=== PATIENT | female | born 1935 | race Caucasian/White ===

== ENCOUNTER → 2016-11-03 | Outpatient (REF) | payer MEDICARE ==
[~2016-11-03] MED LIST: ATEN25TA PO; CITA40TA4 PO; HALO05TA PO; LOSA100T36 PO; POTA10CA PO; PRAV40TA2 PO; PRESCAP PO; VITA50003 PO
[2016-11-03 17:19] LABS: ALBUMIN 3.6 GM/DL (3.2-5.2); ALKALINE PHOSPHATASE 59 U/L (45-117); ALT/SGPT 24 U/L (12-78); ANION GAP 7 MEQ/L (8-16); AST/SGOT 22 U/L (15-37); BILIRUBIN,TOTAL 0.4 MG/DL (0.2-1.0); BLOOD UREA NITROGEN 10 MG/DL (7-18); CALCIUM LEVEL 8.2 MG/DL (8.8-10.2); CARBON DIOXIDE LEVEL 28 MEQ/L (21-32); CHLORIDE LEVEL 105 MEQ/L (98-107); CHOLESTEROL LEVEL 187 MG/DL (<200); CREATININE FOR GFR 0.74 MG/DL (0.55-1.02); GLOMERULAR FILTRATION RATE > 60.0 (>32); GLUCOSE, FASTING 92 MG/DL (83-110); POTASSIUM SERUM 3.9 MEQ/L (3.5-5.1); SODIUM LEVEL 140 MEQ/L (136-145); TOTAL PROTEIN 6.6 GM/DL (6.4-8.2); TRIGLYCERIDES LEVEL 97 MG/DL (<150)
== END ==
LOC: M SFHCPLAZ 13:59
PROVIDERS: ATTEND Nurse Practitioner Adult Health
DX: E78.00 Pure hypercholesterolemia, unspecified (principal); E03.9 Hypothyroidism, unspecified; E55.9 Vitamin D deficiency, unspecified
CPT/HCPCS: 36415; 80053; 80061; 82306; 84443; G0463

== ENCOUNTER 2016-11-23 18:19 | Inpatient (IN) | payer MEDICARE ==
[~2016-11-23] VITALS: Ht 162.6 cm; Wt 69.5 kg
--- NOTE | 2016-11-23 20:40 | REPUSA ---
HISTORY: CVA greater than 4.5 hours TECHNIQUE: Axial CT was performed of the head without intravenous contrast by obtaining contiguous ax ial slices from the skull vertex to skull base at level of occipital condyles. COMPARISON: None FINDINGS: No acute intracranial hemorrhage or evidence of acute transcortical ischemia. No suspicious intra-axi al or extra-axial fluid collection, midline shift, subfalcine herniation, or hydrocephalus. There is prominence of the cortical sulci and ventricular system and perinephric white matter lucenci es, more commonly due to age-appropriate atrophy and chronic small vessel ischemic changes respective ly Posterior Fossa: Unremarkable Paranasal sinuses, mastoid air cells are well pneumatized. Optic globes, orbital compartments, osseou s structures, and extra cranial soft tissues unremarkable. IMPRESSION: No acute intracranial abnormality identified.
[2016-11-23 20:43] LABS: BASO % 0.1 % (0.0-1.0); EOS % 0.3 % (0.0-3.0); LARGE UNSTAINED CELL # 0.1 K/mm3 (0.0-0.4); LARGE UNSTAINED CELL % 0.7 % (0.0-4.0); LYMPH # 0.5 K/mm3 (1.5-4.5); MEAN CORPUSCULAR HGB CONC 32.9 g/dl (32.0-36.5); MEAN CORPUSCULAR VOLUME 88.2 fl (80.0-96.0); MONO # 0.3 K/mm3 (0.0-0.8); MONO % 3.1 % (0.0-5.0); NEUTROPHILS # 8.2 K/mm3 (1.8-7.7); NEUTROPHILS % 90.9 % (36.0-66.0); PLATELET COUNT, AUTOMATED 228 k/mm3 (150-450); RED CELL DISTRIBUTION WIDTH 12.8 % (11.5-14.5); WHITE BLOOD COUNT 9.1 K/mm3 (4.0-10.0)
[2016-11-23] MEDS ORDERED: ACETAMINOPHEN 325 MG TAB As Ordered ONE (20:52)
[2016-11-23 20:54] LABS: AMPHETAMINES LEVEL URINE NEGATIVE (NEGATIVE); BENZODIAZEPINES URINE NEGATIVE (NEGATIVE); COCAINE METABOLITE URINE NEGATIVE (NEGATIVE); CONTROL LINE INT CTR LINE PRESENT; METHADONE URINE NEGATIVE (NEGATIVE); OPIATES URINE NEGATIVE (NEGATIVE); TRICYCLIC ANTIDEPRESS URINE NEGATIVE (NEGATIVE)
[2016-11-23 22:30] LABS: ALBUMIN 3.6 GM/DL (3.2-5.2); ALBUMIN/GLOBULIN RATIO 0.97 (1.00-1.93); ALKALINE PHOSPHATASE 71 U/L (45-117); ALT/SGPT 34 U/L (12-78); ANION GAP 11 MEQ/L (8-16); AST/SGOT 26 U/L (15-37); BILIRUBIN,DIRECT 0.2 MG/DL (0.0-0.2); BILIRUBIN,TOTAL 0.6 MG/DL (0.2-1.0); BLOOD UREA NITROGEN 11 MG/DL (7-18); CALCIUM LEVEL 8.7 MG/DL (8.8-10.2); CARBON DIOXIDE LEVEL 24 MEQ/L (21-32); CHLORIDE LEVEL 102 MEQ/L (98-107); CREATININE FOR GFR 0.71 MG/DL (0.55-1.02); GLOMERULAR FILTRATION RATE > 60.0 (>32); GLUCOSE, FASTING 129 MG/DL (83-110); POTASSIUM SERUM 3.8 MEQ/L (3.5-5.1); SODIUM LEVEL 137 MEQ/L (136-145); TOTAL PROTEIN 7.3 GM/DL (6.4-8.2)
[2016-11-23] MEDS ORDERED: ONDANSETRON 4MG/2ML VIAL (J2405) IV PRN (22:45)
[2016-11-23] MEDS ORDERED: VITA50003 PO (22:56)
[2016-11-23] MEDS ORDERED: ATEN25TA PO (22:56)
[2016-11-23] MEDS ORDERED: PRAV40TA2 PO (22:56)
[2016-11-23] MEDS ORDERED: POTA10CA PO (22:56)
[2016-11-23] MEDS ORDERED: CITA40TA4 PO (22:56)
[2016-11-23] MEDS ORDERED: LOSA100T36 PO (22:56)
[2016-11-23] MEDS ORDERED: HALO05TA PO (22:56)
--- NOTE | 2016-11-23 22:56 | HPEPDOC ---
General Date of Admission 11/23/16 Chief Complaint The patient is a 81-year-old female admitted with a reason for visit of Altered Mental Status. Source: RN notes reviewed Exam Limitations: Dementia History of Present Illness 81-year-old female with past medical history of dyslipidemia, hypertension, and Alzheimer's dementia was brought to the ER by family for worsening dementia. The history for this patient is limited given the patient's baseline dementia, and the fact that the patient's family was not present during my evaluation in the ER. The extent of this history was obtained through communication with the ER physician and a review of the nurses notes. According to the records, the patient was brought into the ER by family as they stated that the patient's dementia has worsened over the last week or so. Apparently, the patient has been more confused and is unable to identify rooms and people the way she did in the past. There are no reports of fevers, chills, shortness of breath, chest pain, palpitations, abdominal pain, or any nausea/vomiting/diarrhea in the recent past. The family is concerned about their ability to take care of the patient at home given her worsening dementia. In the ER, a CT scan of the head did not reveal any acute findings. The patient' s lab work is remarkable for a urinalysis suggestive of a possible urinary tract infection. At this time, the patient will be admitted to the hospitalist service for treatment of UTI, possible placement, and further evaluation and management of the patient's chronic comorbidities. Past Medical History Medical History As noted in HPI. Surgical History None according to the RN notes. Family History Significant Family History: No pertinent family hx Review of Symptoms Other systems Unable to obtain secondary to patient's baseline dementia. Physical Examination General Exam: Positive: Alert, Cooperative, No Acute Distress, Other (patient oriented only to person but not place or time or situation) ENT Exam: Positive: Atraumatic, Mucous membr. moist/pink Neck Exam: Negative: JVD Chest Exam: Positive: Clear to auscultation, Normal air movement Heart Exam: Positive: Normal S1, Normal S2, Rate Normal Abdomen Exam: Positive: Soft, Negative: Tenderness Extremity Exam: Negative: Edema, Tenderness Vital Signs Blood pressure 143/85, pulse 89, respiratory rate 18, temperature 99.0, pulse oximeter reading 91% on room air. Laboratory Data Labs 24H Laboratory Tests 2 11/23/16 20:25: White Blood Count 9.1, Red Blood Count 4.61, Hemoglobin 13.4, Hematocrit 40.7, Mean Corpuscular Volume 88.2, Mean Corpuscular Hemoglobin 29.0, Mean Corpuscular Hemoglobin Concent 32.9, Red Cell Distribution Width 12.8, Platelet Count 228, Neutrophils (%) (Auto) 90.9H, Lymphocytes (%) (Auto) 5.0L, Monocytes (%) (Auto) 3.1, Eosinophils (%) (Auto) 0.3, Basophils (%) (Auto) 0.1, Neutrophils # (Auto) 8.2H, Lymphocytes # (Auto) 0.5L, Monocytes # (Auto) 0.3, Eosinophils # (Auto) 0.0, Basophils # (Auto) 0.0, Large Unclassified Cells # 0.1 , Large Unclassified Cells % 0.7 11/23/16 20:33: Urine Amorphous Sediment , Urine Amphetamine Level NEGATIVE, Urine Benzodiazepines Screen NEGATIVE, Urine Cannabinoids NEGATIVE, Urine Cocaine Metabolite NEGATIVE, Urine Opiates Screen NEGATIVE, Urine Appearance CLEAR, Urine Color YELLOW, Urine pH 5.0, Urine Specific [place] 1.015, Urine Protein NEGATIVE, Urine Glucose (UA) NEGATIVE, Urine Ketones TRACEH, Urine Urobilinogen 0.2, Urine Bilirubin NEGATIVE, Urine Leukocyte Esterase TRACEH, Urine Bacteria ( Auto) 3+H, Urine Barbiturates, Qualitative NEGATIVE, Urine Blood 2+H, Urine Calcium Carbonate Cryst(Auto) , Urine Calcium Oxalate Cryst (Auto) , Urine Calcium Phosphate [place] (Auto) , Urine Cellular Casts , Urine Cystine Crystals , Urine Granular Casts (Auto) , Urine Hyaline Casts (Auto) 0, Urine Leucine Crystals , Urine Methadone Screen NEGATIVE, Urine Mucus (Auto) SMALL, Urine Nitrite POSITIVE, Urine Oval Fat Bodies (Auto) , Urine RBC (Auto) 4H, Urine Renal Epithelial Cells , Urine Sperm (Auto) , Urine Squamous Epithelial Cells 0 , Urine Transitional Epithelial Cells , Urine Trichomonas (Auto) , Urine Tricyclic Antidepressants NEGATIVE, Urine Triple Phosphate Cryst (Auto) , Urine Tyrosine Crystals , Urine Uric Acid Crystals (Auto) , Urine WBC (Auto) 17H, Urine Waxy Casts (Auto) , Urine Yeast-Like Cells (Auto) 11/23/16 21:57: Aspartate Amino Transf (AST/SGOT) 26, Alanine Aminotransferase (ALT/SGPT) 34, Alkaline Phosphatase 71, Total Bilirubin 0.6, Direct Bilirubin 0.2, Albumin 3.6 , Albumin/Globulin Ratio 0.97L, Anion Gap 11, Calcium Level 8.7L, Creatine Kinase MB 2.0, Creatine Kinase MB Relative Index 1.57, Glomerular Filtration Rate > 60.0, Thyroid Stimulating Hormone (TSH) 2.080, Total Creatine Kinase 127 , Total Protein 7.3, Troponin I < 0.02 CBC/BMP Laboratory Tests 11/23/16 20:25 Red Blood Count 4.61, Mean Corpuscular Volume 88.2, Mean Corpuscular Hemoglobin 29.0, Mean Corpuscular Hemoglobin Concent 32.9, Red Cell Distribution Width 12.8 , Neutrophils (%) (Auto) 90.9 H, Lymphocytes (%) (Auto) 5.0 L, Monocytes (%) ( Auto) 3.1, Eosinophils (%) (Auto) 0.3, Basophils (%) (Auto) 0.1, Neutrophils # ( Auto) 8.2 H, Lymphocytes # (Auto) 0.5 L, Monocytes # (Auto) 0.3, Eosinophils # ( Auto) 0.0, Basophils # (Auto) 0.0 11/23/16 21:57 Microbiology Microbiology 11/23/16 Influenza Virus Type A Antigen - Final, Complete 11/23/16 Influenza Virus Type B Antigen - Final, Complete 11/23/16 Urine Culture, Received Pending Plan / VTE VTE Prophylaxis Ordered?: Yes Plan Plan Altered mental status possibly secondary to worsening dementia versus underlying UTI Admit to [facility] CT scan of the head with no acute findings Urinalysis is suggestive of possible underlying infection, urine cultures ordered We will start the patient on Rocephin at this time Blood cultures ordered Chest x-ray pending Respiratory panel ordered TSH levels ordered Physical therapy evaluation PFS consulted We will continue to monitor the patient's progress Hypertension, stable Continue losartan, atenolol Dyslipidemia Continue statin Depression, Agitation Continue citalopram, Haldol when necessary DVT prophylaxis-Lovenox The patient will be admitted under the service of Dr. Villasenor, who will begin to follow the patient on 11/24/16 at 7 AM. ZOEY EKY MD Nov 23, 2016 22:56
--- NOTE | 2016-11-24 01:47 | EDDOCDS ---
Physician Documentation [facility] Name: Ashtyn Marcum Age: 81 yrs Sex: Female : 1935 Arrival Date: 11/23/2016 Time: 18:19 Bed 12 Private MD: Misael Cid Disposition: 11/23/16 21:53 Hospitalization ordered by Kendall Nair for Inpatient Admission. Preliminary diagnosis are Altered mental status, unspecified, Urinary tract infection, site not specified, Dementia in other diseases classified elsewhere. - Bed requested for 4 [place]. - Status is Inpatient Admission. cf2 - Condition is Stable. - Problem is an ongoing problem. - Symptoms are unchanged. Historical: - Allergies: no known allergies; - Home Meds: 1. potassium chloride 10 mEq Oral cpER 2 caps once daily 2. Haloperidol 0.5mg Oral daily 3. Vitamin D2 50,000 unit oral cap 1 cap every 2 weeks 4. losartan 100 mg oral tab 1 tab once daily 5. pravastatin 40 mg oral tab 1 tab once daily 6. atenolol 25 mg Oral tab 1 tab once daily 7. citalopram 40 mg Oral tab 1 tab once daily - PMHx: Hypercholesterolemia; Hypertension; Alzheimers; Dementia; - PSHx: none; - Social history: Smoking status: Patient states was never smoker of tobacco. No barriers to communication noted, The patient speaks fluent Urdu, Speaks appropriately for age. - Family history: Not pertinent. - : The pt / caregiver states he / she is not on anticoagulants. Home medication list is obtained from the patient. - Exposure Risk Screening:: None identified. Vital Signs: 11/23 18:41 BP 143 / 85; Pulse 89; Resp 18; Temp 99.8(TE); Pulse Ox 91% on R/A; Weight 74.84 kg / kc3 164.99 lbs; Height 5 ft. 4 in. (162.56 cm); 20:24 Temp 100(O); jlm 20:38 Temp 102.4(R); cf2 20:58 Pulse Ox 91% ; cf2 20:58 BP 164 / 71 (auto/); cf2 20:58 Pulse 88; Resp 16; cf2 21:28 BP 136 / 65 (auto/); cf2 21:28 Pulse Ox 91% ; cf2 22:00 BP 123 / 78; Pulse 82; Resp 16; Temp 100.1; Pulse Ox 94% on 2 lpm NC; Pain 0/10; cf2 22:25 Temp 100.2(O); cf2 11/24 00:00 BP 132 / 78; Pulse 88; Resp 18; Temp 100.0; Pulse Ox 95% on 2 lpm NC; Pain 0/10; cf2 01:44 BP 122 / 58; Pulse 70; Resp 18; Temp 97.7; Pulse Ox 95% on 2 lpm NC; Pain 0/10; cf2 11/23 18:41 Body Mass Index 28.32 (74.84 kg, 162.56 cm) kc3 MDM: 11/23 19:54 Jalousie Installer/Pulse Ox/q 15 min VS ordered. ke 19:54 Accucheck ordered. ke 19:54 IV Saline Lock ordered. ke 19:54 Oxygen at 4L/Min NC or Home dosage ordered. ke 19:54 Rhythm Strip to chart ordered. ke 19:55 CBC with Diff Ordered. EDMS 19:55 Cardiac Injury Profile Ordered. EDMS 19:55 Drug Eval Toxicology ED Only Ordered. EDMS 19:55 Liver Profile Ordered. EDMS 19:55 MED Profile Ordered. EDMS 19:55 Thyroid Stimulating Hormone Ordered. EDMS 19:55 Troponin Ordered. EDMS 19:55 Urinalysis Ordered. EDMS 19:55 Urine Culture Ordered. EDMS 19:56 CT Head Without Contrast Ordered. EDMS 19:56 Chest, 1 View Ordered. EDMS 19:56 ECG WITH READING ER PHYS+CARDIAG ordered. EDMS 20:37 Acetaminophen Tablet 975 mg PO once ordered. ke 20:38 Obtain sample by nasopharyngeal swab ordered. ke 20:39 -Influenza A&B Rapid Antigen - Nose Ordered. EDMS 21:42 CBC with Diff Reviewed. ke 21:42 Urinalysis Reviewed. ke 21:42 Drug Eval Toxicology ED Only Reviewed. ke 21:42 -Influenza A&B Rapid Antigen - Nose Reviewed. ke 21:42 CT Head Without Contrast Reviewed. ke 21:53 levofloxacin 500 mg PO once ordered. ke 22:36 RESPIRATORY PANEL Ordered. EDMS 22:37 BLOOD CULTURES Ordered. EDMS 22:46 BASIC METABOLIC PROFILE Ordered. EDMS 22:46 COMPLETE BLOOD COUNT Ordered. EDMS 22:47 PHYSICAL THERAPY EVAL & TREAT ordered. EDMS 22:47 Admission / Observation Status ordered. EDMS 22:48 Financial registration complete. zo 22:48 2 GRAM SODIUM DIET ordered. EDMS 22:48 [facility] Payment Agreement was scanned into [employer] and attached to record. zo Administered Medications: 20:40 Drug: Acetaminophen 975 mg [acetaminophen 325 mg tablet (3 tabs)] Route: PO; cf2 11/24 01:13 Follow up: Response: Pain is decreased 2 11/23 21:53 CANCELLED (Other Intervention Used): Nitrofurantoin 100 mg PO once ke 22:03 Drug: levofloxacin 500 mg [levofloxacin 250 mg tablet (2 tabs)] Route: PO; cf2 11/24 01:13 Follow up: Response: No Adverse Reaction; No significant change. cf2 Signatures: Dispatcher [employer] EDMO Boni Levy FNP FNP ke Olin, Zoeann zo Crane, Kelsi, RN RN kc3 Sherlyn Mayer RN RN cf2 Oh Pratt RN RN sa The chart was reviewed and I authenticate all verbal orders and agree with the evaluation and treatment provided.Corrections: (The following items were deleted from the chart) 11/23 21:53 21:52 Nitrofurantoin 100 mg PO once ordered. ke ke Attachments: 22:48 [facility] Payment Agreement zo [id number]
--- NOTE | 2016-11-24 01:47 | EDDOCDS ---
Nurse's Notes [facility] Name: Ashtyn Marcum Age: 81 yrs Sex: Female : 1935 Arrival Date: 11/23/2016 Time: 18:19 Bed 12 Private MD: Misael Cid Diagnosis: Altered mental status, unspecified;Urinary tract infection, site not specified;Dementia in other diseases classified elsewhere Presentation: 11/23 18:28 Presenting complaint: EMS states: Pt with hx of dementia with worsened confusion and kc3 unsteady gait since approx 3pm this afternoon. Pt with productive cough. Adult Sepsis Screening: Patient has new or worsening altered mentation (1 point). Patient's respiratory rate is less than 22. Systolic blood pressure is greater than 100. Patient has a qSOFA score of 1- Negative Sepsis Screen. Suicide/Homicide risk assessment- the patient denies having any suicidal and/or homicidal ideations and does not present with any other emotional, behavioral or mental health complaints. Status: Patient is not a service center technician or dependent. Transition of care: patient was not received from another setting of care. 18:28 Acuity: JHON Level 3 kc3 18:28 Method Of Arrival: Ambulance kc3 Triage Assessment: 18:45 General: Appears in no apparent distress, comfortable, Behavior is appropriate for age, kc3 cooperative. Pain: Unable to use pain scale. Does not appear to understand pain scale. The patient is triaged at the bedside. See Assessment in Nurses Notes section of ED record. Neurological: Level of Consciousness is awake, alert, obeys commands, Oriented to person. Respiratory: Airway is patent Respiratory effort is even, unlabored. Derm: Skin is pink, warm & dry. Musculoskeletal: Circulation, motion, and sensation intact. Historical: - Allergies: no known allergies; - Home Meds: 1. potassium chloride 10 mEq Oral cpER 2 caps once daily 2. Haloperidol 0.5mg Oral daily 3. Vitamin D2 50,000 unit oral cap 1 cap every 2 weeks 4. losartan 100 mg oral tab 1 tab once daily 5. pravastatin 40 mg oral tab 1 tab once daily 6. atenolol 25 mg Oral tab 1 tab once daily 7. citalopram 40 mg Oral tab 1 tab once daily - PMHx: Hypercholesterolemia; Hypertension; Alzheimers; Dementia; - PSHx: none; - Social history: Smoking status: Patient states was never smoker of tobacco. No barriers to communication noted, The patient speaks fluent Telugu, Speaks appropriately for age. - Family history: Not pertinent. - : The pt / caregiver states he / she is not on anticoagulants. Home medication list is obtained from the patient. - Exposure Risk Screening:: None identified. Screenin:46 Screening information is obtained from the patient. Fall risk: At risk due to apparent kc3 cognitive impairment, The following interventions are performed due to a positive Fall Risk Screen: Fall Risk is added to Special Handling on the patient Summary Screen. A Fall Risk Bracelet was applied to the patient. Side Rails are placed in the up position. A Call Fink is given with instruction to call for help when getting out of bed. Fall Alert bracelet is placed on the patient. Assistance ADL's: Requires assistance with meal preparation, this assistance is provided by family members, bathing, assistance is provided by family members, dressing, assistance is provided by family members, toileting, assistance is provided by family members, ambulation, assistance is provided by family members, housework, assistance is provided by family members, medication administration, assistance is provided by family members. Abuse/DV Screen: The patient / caregiver reports he/she is: not in a situation that causes fear, pain or injury. Nutritional screening: No deficits noted. Advance Directives: Currently, there is no health care proxy. home support is adequate. Assessment: 18:47 General: See triage assessment for initial assessment. . kc3 20:00 General: Per patient family, they are requesting shelter care facility for patient. cf2 rock room worker and PA made aware. It was explained to family if patient was to be discharged call PMD and request a MADY. If patient was to be admitted, they could speak with in-house psychiatric social worker supervisor about shelter placement. 22:25 Adult Sepsis Screening: Patient has new or worsening altered mentation (1 point). cf2 Patient's respiratory rate is less than 22. Systolic blood pressure is greater than 100. Patient has a qSOFA score of 0- Negative Sepsis Screen. General: Appears in no apparent distress, comfortable, Behavior is restless, Patient attempting to climb out of bed . 11/24 00:51 Reassessment: Patient states feeling better. Patient states symptoms have improved. cf2 Patient resting at present time. Will continue to monitor. 01:41 Reassessment: Patient states feeling better. Patient states symptoms have improved. cf2 General: Patient resting comfortably. no s/s distress . Vital Signs: 02 18:41 BP 143 / 85; Pulse 89; Resp 18; Temp 99.8(TE); Pulse Ox 91% on R/A; Weight 74.84 kg; kc3 Height 5 ft. 4 in. (162.56 cm); 20:24 Temp 100(O); jlm 20:38 Temp 102.4(R); cf2 20:58 Pulse Ox 91% ; cf2 20:58 BP 164 / 71 (auto/); cf2 20:58 Pulse 88; Resp 16; cf2 21:28 BP 136 / 65 (auto/); cf2 21:28 Pulse Ox 91% ; cf2 22:00 BP 123 / 78; Pulse 82; Resp 16; Temp 100.1; Pulse Ox 94% on 2 lpm NC; Pain 0/10; cf2 22:25 Temp 100.2(O); cf2 02 00:00 BP 132 / 78; Pulse 88; Resp 18; Temp 100.0; Pulse Ox 95% on 2 lpm NC; Pain 0/10; cf2 01:44 BP 122 / 58; Pulse 70; Resp 18; Temp 97.7; Pulse Ox 95% on 2 lpm NC; Pain 0/10; cf2 02 18:41 Body Mass Index 28.32 (74.84 kg, 162.56 cm) 3 Vitals: 02 18:41 Log In Time N/A - ambulance arrival. 3 ED Course: 18:21 Patient visited by Roxanne Benton, Ostomy Care Nurse. lbd 18:21 Patient moved to Waiting lbd 18:22 Misael Cid is Private Physician. lbd 18:22 Adrianna Soria,RN is Primary Nurse. lbd 18:22 Patient moved to 12 lbd 18:34 Triage Initiated kc3 18:46 The patient / caregiver is instructed regarding the plan of care and ED course. kc3 18:46 Maintain field IV. Dressing intact. Site clean & dry. Gauge & site: 20g left AC. kc3 19:17 Primary Nurse role handed off by Adrianna Soria,RN cf2 19:17 Sherlyn Mayer,RN is Primary Nurse. cf2 19:17 Patient visited by Sherlyn Mayer RN. cf2 19:45 [facility]. ke 19:45 Patient visited by Boni Levy FNP. ke 19:45 Patient visited by Boni Levy FNP. ke 20:02 Patient visited by Sherlyn Mayer RN. cf2 20:28 CBC with Diff Sent. mgs 20:28 Cardiac Injury Profile Sent. mgs 20:28 Liver Profile Sent. mgs 20:28 MED Profile Sent. mgs 20:28 Thyroid Stimulating Hormone Sent. mgs 20:28 Troponin Sent. mgs 20:36 Patient visited by Boni Levy FNP. ke 20:38 Drug Eval Toxicology ED Only Sent. cf2 20:38 Urinalysis Sent. cf2 20:38 Urine Culture Sent. cf2 21:09 Patient visited by Boni Levy FNP. ke 21:15 CT Head Without Contrast Returned. EDMS 21:24 EKG done. (by ED staff). Reviewed by Boni CARR. jlm 21:25 Patient visited by Lexie Parker, Ostomy Care Nurse. jlm 21:47 Patient visited by Sherlyn Mayer RN. cf2 21:52 Kendall Nair is Hospitalizing Provider. ke 22:24 Patient visited by Sherlyn Mayer RN. cf2 22:48 [facility] Payment Agreement was scanned into [employer] and attached to record. zo 23:24 Patient visited by Sherlyn Mayer RN. cf2 23:24 No procedures done that require assistance. cf2 11/24 01:41 Patient visited by Sherlyn Mayer RN. cf2 01:45 Feliberto Pittman MD is Attending Physician. cf2 Administered Medications: 11/23 20:40 Drug: Acetaminophen 975 mg [acetaminophen 325 mg tablet (3 tabs)] Route: PO; cf2 11/24 01:13 Follow up: Response: Pain is decreased cf2 11/23 21:53 CANCELLED (Other Intervention Used): Nitrofurantoin 100 mg PO once ke 22:03 Drug: levofloxacin 500 mg [levofloxacin 250 mg tablet (2 tabs)] Route: PO; cf2 11/24 01:13 Follow up: Response: No Adverse Reaction; No significant change. cf2 Order Results: Lab Order: CBC with Diff; SPEC'M 11/23/16 20:25 Test: WHITE BLOOD COUNT; Value: 9.1; Range: 4.0-10.0; Units: K/mm3; Status: F Test: RED BLOOD COUNT; Value: 4.61; Range: 4.00-5.40; Units: M/mm3; Status: F Test: HEMOGLOBIN; Value: 13.4; Range: 12.0-16.0; Units: g/dl; Status: F Test: HEMATOCRIT; Value: 40.7; Range: 36.0-47.0; Units: %; Status: F Test: MEAN CORPUSCULAR VOLUME; Value: 88.2; Range: 80.0-96.0; Units: fl; Status: F Test: MEAN CORPUSCULAR HEMOGLOBIN; Value: 29.0; Range: 27.0-33.0; Units: pg; Status: F Test: MEAN CORPUSCULAR HGB CONC; Value: 32.9; Range: 32.0-36.5; Units: g/dl; Status: F Test: RED CELL DISTRIBUTION WIDTH; Value: 12.8; Range: 11.5-14.5; Units: %; Status: F Test: PLATELET COUNT, AUTOMATED; Value: 228; Range: 150-450; Units: k/mm3; Status: F Test: NEUTROPHILS %; Value: 90.9; Range: 36.0-66.0; Abnormal: Above high normal; Units: %; Status: F Test: LYMPH %; Value: 5.0; Range: 24.0-44.0; Abnormal: Below low normal; Units: %; Status: F Test: MONO %; Value: 3.1; Range: 0.0-5.0; Units: %; Status: F Test: EOS %; Value: 0.3; Range: 0.0-3.0; Units: %; Status: F Test: BASO %; Value: 0.1; Range: 0.0-1.0; Units: %; Status: F Test: LARGE UNSTAINED CELL %; Value: 0.7; Range: 0.0-4.0; Units: %; Status: F Test: NEUTROPHILS #; Value: 8.2; Range: 1.8-7.7; Abnormal: Above high normal; Units: K/mm3; Status: F Test: LYMPH #; Value: 0.5; Range: 1.5-4.5; Abnormal: Below low normal; Units: K/mm3; Status: F Test: MONO #; Value: 0.3; Range: 0.0-0.8; Units: K/mm3; Status: F Test: EOS #; Value: 0.0; Range: 0.0-0.50; Units: K/mm3; Status: F Test: BASO #; Value: 0.0; Range: 0.0-0.2; Units: K/mm3; Status: F Test: LARGE UNSTAINED CELL #; Value: 0.1; Range: 0.0-0.4; Units: K/mm3; Status: F Lab Order: Cardiac Injury Profile; SPEC'M 11/23/16 21:57 Test: CPK CREATINE PHOSPHOKINASE; Value: 127; Range: 26-192; Units: U/L; Status: F Test: CK-MB VALUE MASS; Value: 2.0; Range: 0.0-3.6; Units: NG/ML; Status: F Test: MB/CK RELATIVE INDEX; Value: 1.57; Range: < OR =4; Status: F Test Note: ; DIAGNOSIS CRITERIA MMB ng/ml Relative Index (RI) NON-AMI < or = 5 N/A [place] > 5 < or = 4 AMI > 5 > 4 Lab Order: Drug Eval Toxicology ED Only; SPEC'M 11/23/16 20:33 Test: AMPHETAMINES LEVEL URINE; Value: NEGATIVE; Range: NEGATIVE; Status: F Test: BARBITURATES URINE; Value: NEGATIVE; Range: NEGATIVE; Status: F Test: BENZODIAZEPINES URINE; Value: NEGATIVE; Range: NEGATIVE; Status: F Test: CANNABINOIDS URINE; Value: NEGATIVE; Range: NEGATIVE; Status: F Test: COCAINE METABOLITE URINE; Value: NEGATIVE; Range: NEGATIVE; Status: F Test: METHADONE URINE; Value: NEGATIVE; Range: NEGATIVE; Status: F Test: OPIATES URINE; Value: NEGATIVE; Range: NEGATIVE; Status: F Test: TRICYCLIC ANTIDEPRESS URINE; Value: NEGATIVE; Range: NEGATIVE; Status: F Test Note: ; ALL PRESUMPTIVE POSITIVE FINDINGS ARE UNCONFIRMED NORMAL VALUES THRESHOLD IN NG/ML AMPHETAMINES 1000 METHAMPHETAMINES 1000 BARBITURATES 300 BENZODIAZEPINES 300 CANNABINOIDS (THC) 50 COCAINE METABOLITE 300 METHADONE 300 OPIATES 300 PHENCYCLIDINE 25 TRICYCLIC ANTIDEPRESSANTS 1000 RESULTS ARE FOR MEDICAL PURPOSES ONLY. ALL URINE SPECIMENS WILL BE SAVED FOR 3 DAYS. IF CONFIRMATION OF A PRESUMPTIVE POSTIVE SCREEN RESULT IS DESIRED, CALL CHEMISTRY ([phone]) AND REQUEST URINE TO BE SENT TO REFERENCE LAB. FOR A LIST OF CLOSELY RELATED COMPOUNDS PLEASE CALL THE LAB. Lab Order: Liver Profile; SPEC'M 11/23/16 21:57 Test: AST/SGOT; Value: 26; Range: 15-37; Units: U/L; Status: F Test: ALT/SGPT; Value: 34; Range: 12-78; Units: U/L; Status: F Test: ALKALINE PHOSPHATASE; Value: 71; Range: 45-117; Units: U/L; Status: F Test: BILIRUBIN,TOTAL; Value: 0.6; Range: 0.2-1.0; Units: MG/DL; Status: F Test: BILIRUBIN,DIRECT; Value: 0.2; Range: 0.0-0.2; Units: MG/DL; Status: F Test: TOTAL PROTEIN; Value: 7.3; Range: 6.4-8.2; Units: GM/DL; Status: F Test: ALBUMIN; Value: 3.6; Range: 3.2-5.2; Units: GM/DL; Status: F Test: ALBUMIN/GLOBULIN RATIO; Value: 0.97; Range: 1.00-1.93; Abnormal: Below low normal; Status: F Lab Order: MED Profile; SPEC'M 11/23/16 21:57 Test: GLUCOSE, FASTING; Value: 129; Range: 83-110; Abnormal: Above high normal; Units: MG/DL; Status: F Test: BLOOD UREA NITROGEN; Value: 11; Range: 7-18; Units: MG/DL; Status: F Test: CREATININE FOR GFR; Value: 0.71; Range: 0.55-1.02; Units: MG/DL; Status: F Test: GLOMERULAR FILTRATION RATE; Value: > 60.0; Range: >32; Status: F Test: SODIUM LEVEL; Value: 137; Range: 136-145; Units: MEQ/L; Status: F Test: POTASSIUM SERUM; Value: 3.8; Range: 3.5-5.1; Units: MEQ/L; Status: F Test: CHLORIDE LEVEL; Value: 102; Range: 98-107; Units: MEQ/L; Status: F Test: CARBON DIOXIDE LEVEL; Value: 24; Range: 21-32; Units: MEQ/L; Status: F Test: ANION GAP; Value: 11; Range: 8-16; Units: MEQ/L; Status: F Test: CALCIUM LEVEL; Value: 8.7; Range: 8.8-10.2; Abnormal: Below low normal; Units: MG/DL; Status: F Test Note: ; Units are mL/min/1.73 m2 Chronic Kidney Disease Staging per NKF: Stage I & II GFR >=60 Normal to Mildly Decreased Stage III GFR 30-59 Moderately Decreased Stage IV GFR 15-29 Severely Decreased Stage V GFR <15 Very Little GFR Left ESRD GFR <15 on WOODWORKING MACHINIST Lab Order: Thyroid Stimulating Hormone; SPEC'11/23/16 21:57 Test: THYROID STIMULATING HORMONE; Value: 2.080; Range: 0.358-3.740; Units: uIU/ML; Status: F Lab Order: Troponin; SPEC11/23/16 21:57 Test: TROPONIN I; Value: < 0.02; Range: < 0.10; Units: NG/ML; Status: F Test Note: ; Troponin I Reference Interval for [employer] LOCI: 99th Percentile= 0.00-0.045 ng/ml Risk Stratification: <= 0.10 ng/ml Decreased Risk for Adverse Clinical Events. 0.10-1.50 ng/ml Increased Risk for Adverse Clinical Events. Evaluation of additional criterion and/or repeat testing in 2-6 hours is suggested to rule out myocardial damage. >= 1.50 ng/ml Indicative of Myocardial Injury. Lab Order: Urinalysis; SPEC'M 11/23/16 20:33 Test: APPEARANCE, URINE; Value: CLEAR; Range: CLEAR; Status: F Test: COLOR, URINE; Value: YELLOW; Range: YELLOW; Status: F Test: PH,URINE; Value: 5.0; Range: 5.0-9.0; Units: UNITS; Status: F Test: SPECIFIC GRAVITY URINE AUTO; Value: 1.015; Range: 1.002-1.035; Status: F Test: PROTEIN, URINE AUTO; Value: NEGATIVE; Range: NEGATIVE; Units: mg/dL; Status: F Test: GLUCOSE, URINE (UA) AUTO; Value: NEGATIVE; Range: NEGATIVE; Units: mg/dL; Status: F Test: KETONE, URINE AUTO; Value: TRACE; Range: NEGATIVE; Abnormal: Above high normal; Units: mg/dL; Status: F Test: UROBILINOGEN, URINE AUTO; Value: 0.2; Range: 0.0-2.0; Units: mg/dL; Status: F Test: BILIRUBIN, URINE AUTO; Value: NEGATIVE; Range: NEGATIVE; Status: F Test: NITRITE, URINE AUTO; Value: POSITIVE; Range: NEGATIVE; Status: F Test: LEUKOCYTE ESTERASE, URINE AUTO; Value: TRACE; Range: NEGATIVE; Abnormal: Above high normal; Status: F Test: BLOOD, URINE BLOOD; Value: 2+; Range: NEGATIVE; Abnormal: Above high normal; Status: F Test: WBC, URINE AUTO; Value: 17; Range: 0-3; Abnormal: Above high normal; Units: /HPF; Status: F Test: RBC, URINE AUTO; Value: 4; Range: 0-3; Abnormal: Above high normal; Units: /HPF; Status: F Test: BACTERIA, URINE AUTO; Value: 3+; Range: NEGATIVE; Abnormal: Above high normal; Status: F Test: SQUAMOUS EPITHELIAL CELL UR AU; Value: 0; Range: 0-6; Units: /HPF; Status: F Test: MUCUS, URINE; Value: SMALL; Range: NEGATIVE; Status: F Test: HYALINE CAST, URINE AUTO; Value: 0; Range: 0-1; Units: /LPF; Status: F Lab Order: -Influenza A&B Rapid Antigen - Nose; SPEC'M 11/23/16 20:36 Test: INFLUENZA A RAPID SCR by ICA; Value: INFLUENZA A RESULTS NEGATIVE; Status: F Test: INFLUENZA A RAPID SCR by ICA; Value: Comments:; Status: F Test: INFLUENZA B RAPID SCR by ICA; Value: INFLUENZA B RESULTS NEGATIVE; Status: F Test Note: ; The Influenza test is a direct rapid immunoassay for the qualitative detection of Influenza viral antigen. Cell culture (Viral Culture) testing should be considered to confirm NEGATIVE results and to assist in detecting other viruses that can provide similar clinical symptoms. Please contact the lab within 24 hours ([phone]) if confirmatory testing is desired. Radiology Order: CT Head Without Contrast Test: CT Head Without Contrast REASON FOR EXAMINATION: CVA >4.5hrs; ; HISTORY: CVA greater than 4.5 hours; TECHNIQUE: Axial CT was performed of the head without intravenous contrast by obtaining contiguous ax; ial slices from the skull vertex to skull base at level of occipital condyles.; COMPARISON: None; FINDINGS:; No acute intracranial hemorrhage or evidence of acute transcortical ischemia. No suspicious intra-axi; al or extra-axial fluid collection, midline shift, subfalcine herniation, or hydrocephalus.; There is prominence of the cortical sulci and ventricular system and perinephric white matter lucenci; es, more commonly due to age-appropriate atrophy and chronic small vessel ischemic changes respective; ly; Posterior Fossa: Unremarkable; Paranasal sinuses, mastoid air cells are well pneumatized. Optic globes, orbital compartments, osseou; s structures, and extra cranial soft tissues unremarkable.; IMPRESSION:; No acute intracranial abnormality identified.; ; Outcome: 11/23 21:53 Decision to Hospitalize by Provider. ke 23:24 Discharge Assessment: Patient awake, alert and oriented x 3. No cognitive and/or cf2 functional deficits noted. Patient verbalized understanding of disposition instructions. Patient awake and alert. Oriented to person, place and time. patient administered narcotics - no. The following High Risk Discharge criteria are identified: None. Admitted to Med/Surg. Condition: stable Condition: unchanged. CT Study completed. Property family took home. 11/24 01:43 Discharge Assessment: Patient Oriented to person, Patient cf2 01:45 Patient left the ED. cf2 Signatures: Dispatcher [employer] EDMS Roxanne Benton, Ostomy Care Nurse Unit Boni Hernandez FNP FNP ke Olin, Zoeann zo Mitchell, Jessie, Ostomy Care Nurse Unit jlm Finesse Armijo,THADDEUS RN Adrianna Lugo,THADDEUS RN 3 Sherlyn Mayer,RN RN cf2 MTDD
[2016-11-24 01:57] VITALS: BP 141/68
[2016-11-24] MEDS: cefTRIAXone SOD 1 GM in D5W MINI-BAG PLUS 50 ML IV SCH ×2 (02:31→12:16)
[2016-11-24 06:00] VITALS: BP 145/68
[2016-11-24] MEDS ORDERED: PRESCAP PO (06:02)
[2016-11-24 06:20] LABS: MEAN CORPUSCULAR HEMOGLOBIN 29.2 pg (27.0-33.0); MEAN CORPUSCULAR HGB CONC 33.2 g/dl (32.0-36.5); RED CELL DISTRIBUTION WIDTH 13.2 % (11.5-14.5); WHITE BLOOD COUNT 8.9 K/mm3 (4.0-10.0)
[2016-11-24 06:38] LABS: ANION GAP 9 MEQ/L (8-16); BLOOD UREA NITROGEN 9 MG/DL (7-18); CALCIUM LEVEL 8.4 MG/DL (8.8-10.2); CARBON DIOXIDE LEVEL 26 MEQ/L (21-32); CHLORIDE LEVEL 105 MEQ/L (98-107); CREATININE FOR GFR 0.65 MG/DL (0.55-1.02); GLOMERULAR FILTRATION RATE > 60.0 (>32); GLUCOSE, FASTING 102 MG/DL (83-110); POTASSIUM SERUM 3.5 MEQ/L (3.5-5.1); SODIUM LEVEL 140 MEQ/L (136-145)
--- NOTE | 2016-11-24 08:18 | REP ---
Portable chest, single AP view, 11/23/2016, 08:07 p.m.: Comparison is 11/23/2009. There is chronic cardiomegaly and chronic interstitial coarsening, not significantly change taking into consideration differences in radiographic technique. No acute infiltrates or effusions are identified. No masses. The phillip, mediastinum, and bony thorax are unchanged. Impression: No acute cardiopulmonary findings. Chronic cardiomegaly and chronic interstitial coarsening. Signed by Asad Molina MD 11/24/2016 08:10 A
[2016-11-24] MEDS: PRAVASTATIN 20 MG TAB PO SCH (09:42)
[2016-11-24] MEDS: CitaloPRAM (CeleXA) 20 MG TAB PO SCH (09:42)
[2016-11-24] MEDS: ENOXAPARIN 30 MG/0.3 ML SYR (J1650) SC SCH (09:43)
[2016-11-24] MEDS: LOSARTAN 50 MG TAB PO SCH (09:45)
[2016-11-24] MEDS: ATENOLOL 25 MG TAB PO SCH (09:46)
[2016-11-24 14:00] VITALS: BP 129/96
--- NOTE | 2016-11-24 14:57 | IPN ---
DATE: 11/24/2016 SUBJECTIVE: Today, the patient denies any complaints whatsoever. She denies any urinary complaints. The patient is oriented to person but not to place, time or to situation. OBJECTIVE: VITAL SIGNS: Maximum temperature (t-max) 99.3, pulse 77, respiratory rate 18, blood pressure 129/96, oxygen saturation 92% on room air. GENERAL: She is an elderly, female lying comfortably in bed at a 30-degree angle. She does not appear to be in any distress. HEENT: Cranial nerves II through XII are grossly intact. He has moist mucous membranes. No elevation of central venous pressure. CARDIOVASCULAR EXAM: S1, S2 regular. RESPIRATORY EXAM: Clear. ABDOMINAL EXAM: Benign. There is no suprapubic tenderness. EXTREMITIES: No clubbing, cyanosis or edema. LABORATORY STUDIES: WBC 8.9, hemoglobin 12.4, platelet count 209. Chemistry panel: Sodium 140, potassium 3.5, chloride 105, bicarbonate 26, BUN 9 , creatinine 0.6. She had a TSH within normal limits. Urine toxicology is negative. UA is suggestive of urinary tract infection (UTI). Urine culture is pending. Blood culture is pending. Flu swab was negative. IMAGING: The patient had a chest x-ray that revealed no acute cardiopulmonary findings. She also had a CT scan of the head, which revealed no acute intracranial abnormality. ASSESSMENT AND PLAN: This is an 81-year-old female with acute on chronic metabolic encephalopathy. 1. Encephalopathy. The patient has baseline dementia, which appears to be decompensated secondary to underlying urinary tract infection (UTI). The patient was admitted. She is currently being treated with Rocephin. It is difficult to know if she is improving given her significant underlying dementia and her cognitive impairment at baseline. We will have to seek out the help of the patient's sister, who is her primary caregiver at home. We will followup her urine culture and blood cultures. The patient is ordered for physical therapy (PT) and patient and family services (PFS). I feel that once the patient is improved back to her baseline she will likely need placement. Per documentation , the patient's sister is unable to continue caring for her at home. 2. Hypertension, stable. The patient is on losartan and atenolol. 3. Dyslipidemia. The patient is on a statin. 4. Depression. The patient is on citalopram and Haldol when necessary. 5. Deep vein thrombosis (DVT) prophylaxis. The patient is on Lovenox. MTDD
[2016-11-24] MEDS: HALOPERIDOL 0.5 MG TAB PO PRN (15:58)
[2016-11-24] MEDS ORDERED: LORazepam 2 MG/ML VIAL (J2060) IV PRN (16:30)
[2016-11-24 22:00] VITALS: BP 102/70
[2016-11-25] MEDS: HALOPERIDOL 0.5 MG TAB PO PRN ×2 (00:34→00:45)
[2016-11-25] MEDS: cefTRIAXone SOD 1 GM in D5W MINI-BAG PLUS 50 ML IV SCH ×3 (00:34→23:30)
[2016-11-25 06:00] VITALS: BP 130/80
[2016-11-25 07:02] LABS: MEAN CORPUSCULAR HEMOGLOBIN 28.2 pg (27.0-33.0); MEAN CORPUSCULAR HGB CONC 31.9 g/dl (32.0-36.5); MEAN CORPUSCULAR VOLUME 88.6 fl (80.0-96.0); RED CELL DISTRIBUTION WIDTH 12.9 % (11.5-14.5); WHITE BLOOD COUNT 7.9 K/mm3 (4.0-10.0)
[2016-11-25 07:25] LABS: ANION GAP 10 MEQ/L (8-16); BLOOD UREA NITROGEN 9 MG/DL (7-18); CALCIUM LEVEL 8.5 MG/DL (8.8-10.2); CARBON DIOXIDE LEVEL 26 MEQ/L (21-32); CHLORIDE LEVEL 104 MEQ/L (98-107); CREATININE FOR GFR 0.64 MG/DL (0.55-1.02); GLOMERULAR FILTRATION RATE > 60.0 (>32); GLUCOSE, FASTING 89 MG/DL (83-110); POTASSIUM SERUM 3.4 MEQ/L (3.5-5.1); SODIUM LEVEL 140 MEQ/L (136-145)
--- NOTE | 2016-11-25 09:42 | ECGEPIP ---
Stationary ECG Study [facility] Test Date: 2016-11-25 Pat Name: TASHI JOVEL Department: Room: [place] [address] Gender: F Selling Underwriter: DAYA : 1935 Requested By: MALIKA PERALTA Order Number: [id number] Reading MD: Liane Paz Measurements Intervals [place] Rate: 93 P: 69 MO: 175 QRS: -3 QRSD: 88 T: -10 QT: 380 QTc: 473 Interpretive Statements SINUS RHYTHM WITH FREQUENT SUPRAVENTRICULAR PREMATURE COMPLEXES ABNORMAL RHYTHM ECG Left axis deviation NONSPECIFIC STTABN NO PRIOR Electronically Signed On 11-25-2016 9:42:04 EST by Liane Paz
[2016-11-25] MEDS: CitaloPRAM (CeleXA) 20 MG TAB PO SCH (10:24)
[2016-11-25] MEDS: ENOXAPARIN 30 MG/0.3 ML SYR (J1650) SC SCH (10:24)
[2016-11-25] MEDS: LOSARTAN 50 MG TAB PO SCH (10:25)
[2016-11-25] MEDS: PRAVASTATIN 20 MG TAB PO SCH (10:25)
[2016-11-25] MEDS: ATENOLOL 25 MG TAB PO SCH (10:25)
--- NOTE | 2016-11-25 12:27 | IPNPDOC ---
Date Seen The patient was seen on 11/25/16. Progress Note SUBJECTIVE: The patient has no complaints today she is resting comfortably. The patient is oriented to person but not place time or situation OBJECTIVE: PHYSICAL EXAMINATION: VITAL SIGNS: Low-grade temps Please see below. GENERAL: Pleasant elderly female laying flat in bed appears older than stated age she is in no distress whatsoever HEENT:. Is a very round reactive to light she has moist pedis membranes elevation CVP CARDIOVASCULAR: S1-S2 regular. RESPIRATORY: To auscultation. ABDOMINAL: Benign EXTREMITIES: No clubbing cyanosis or edema LABORATORY DATA: Please see below. MICROBIOLOGY: Escherichia coli positive urine culture otherwise Please see below. IMAGING: No new imaging DVT prophylaxis ordered?: Lovenox ASSESSMENT AND PLAN: This is a 81-year-old . Female with acute on chronic encephalopathy secondary to urinary tract infection. 1. Metabolic encephalopathy acute on chronic: The patient has chronic dementia which appears to have worsened over the last several days secondary to urinary tract infection appears to be improving to her baseline with IV antibiotics. Will continue on her current therapies she still having low-grade temperatures. If she does spike any temperatures would consider check a CT of the abdomen to evaluate for any abscess or stone causing urinary tract infection. 2. Dementia: The patient will require retirement placement following completion of her treatment for urinary tract infection. The patient is provided with when necessary Haldol and Ativan 3. Hypertension stable the patient is on losartan and atenolol. 4. Dyslipidemia the patient is on a statin. 5. Depression: The patient is on citalopram. DISPOSITION: Pending placement once adequately treated for urinary tract infection. [facility] Sign[facility]/I&O Vital Signs Date Time Temp Pulse Resp B/P Pulse Ox O2 Delivery O2 Flow Rate FiO2 11/25/16 10:25 150/81 11/25/16 10:25 75 11/25/16 06:00 99.0 15 95 Room Air I&O- Last 24 Hours up to 6 AM 11/25/16 06:00 Intake Total 595 ml Output Total 200 ml Balance 395 ml Laboratory Data 24H LABS Laboratory Tests 2 11/25/16 06:42: Anion Gap 10, Blood Urea Nitrogen 9, Creatinine 0.64, Sodium Level 140, Potassium Level 3.4L, Chloride Level 104, Carbon Dioxide Level 26, Calcium Level 8.5L, Glomerular Filtration Rate > 60.0 CBC/BMP Laboratory Tests 11/25/16 06:42 Calcium Level 8.5 L, Red Blood Count 4.39, Mean Corpuscular Volume 88.6, Mean Corpuscular Hemoglobin 28.2, Mean Corpuscular Hemoglobin Concent 31.9 L, Red Cell Distribution Width 12.9 Microbiology Microbiology 11/23/16 Blood Culture - Preliminary, Resulted No growth after 24 hours . All specim... 11/23/16 Respiratory Virus Panel (PCR) ([facility]) - Final, Complete 11/23/16 Influenza Virus Type A Antigen - Final, Complete 11/23/16 Influenza Virus Type B Antigen - Final, Complete 11/23/16 Urine Culture - Final, Complete Escherichia Coli MALIKA PERALTA MD Nov 25, 2016 12:27
[2016-11-25 14:00] VITALS: BP 107/59
--- NOTE | 2016-11-25 20:06 | ECGEPIP ---
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
[2016-11-25 22:00] VITALS: BP 110/74
--- NOTE | 2016-11-26 02:46 | EDDOCDS ---
Physician Documentation [facility] Name: Ashtyn Marcum Age: 81 yrs Sex: Female : 1935 Arrival Date: 11/23/2016 Time: 18:19 Bed 12 Private MD: Misael Cid Disposition: 11/23/16 21:53 Hospitalization ordered by Kendall Nair for Inpatient Admission. Preliminary diagnosis are Altered mental status, unspecified, Urinary tract infection, site not specified, Dementia in other diseases classified elsewhere. - Bed requested for 4 [place]. - Status is Inpatient Admission. cf2 - Condition is Stable. - Problem is an ongoing problem. - Symptoms are unchanged. Historical: - Allergies: no known allergies; - Home Meds: 1. potassium chloride 10 mEq Oral cpER 2 caps once daily 2. Haloperidol 0.5mg Oral daily 3. Vitamin D2 50,000 unit oral cap 1 cap every 2 weeks 4. losartan 100 mg oral tab 1 tab once daily 5. pravastatin 40 mg oral tab 1 tab once daily 6. atenolol 25 mg Oral tab 1 tab once daily 7. citalopram 40 mg Oral tab 1 tab once daily - PMHx: Hypercholesterolemia; Hypertension; Alzheimers; Dementia; - PSHx: none; - Social history: Smoking status: Patient states was never smoker of tobacco. No barriers to communication noted, The patient speaks fluent Amharic, Speaks appropriately for age. - Family history: Not pertinent. - : The pt / caregiver states he / she is not on anticoagulants. Home medication list is obtained from the patient. - Exposure Risk Screening:: None identified. Vital Signs: 11/23 18:41 BP 143 / 85; Pulse 89; Resp 18; Temp 99.8(TE); Pulse Ox 91% on R/A; Weight 74.84 kg / kc3 164.99 lbs; Height 5 ft. 4 in. (162.56 cm); 20:24 Temp 100(O); jlm 20:38 Temp 102.4(R); cf2 20:58 Pulse Ox 91% ; cf2 20:58 BP 164 / 71 (auto/); cf2 20:58 Pulse 88; Resp 16; cf2 21:28 BP 136 / 65 (auto/); cf2 21:28 Pulse Ox 91% ; cf2 22:00 BP 123 / 78; Pulse 82; Resp 16; Temp 100.1; Pulse Ox 94% on 2 lpm NC; Pain 0/10; cf2 22:25 Temp 100.2(O); cf2 11/24 00:00 BP 132 / 78; Pulse 88; Resp 18; Temp 100.0; Pulse Ox 95% on 2 lpm NC; Pain 0/10; cf2 01:44 BP 122 / 58; Pulse 70; Resp 18; Temp 97.7; Pulse Ox 95% on 2 lpm NC; Pain 0/10; cf2 11/23 18:41 Body Mass Index 28.32 (74.84 kg, 162.56 cm) kc3 MDM: 11/23 19:54 Roving Winder/Pulse Ox/q 15 min VS ordered. ke 19:54 Accucheck ordered. ke 19:54 IV Saline Lock ordered. ke 19:54 Oxygen at 4L/Min NC or Home dosage ordered. ke 19:54 Rhythm Strip to chart ordered. ke 19:55 CBC with Diff Ordered. EDMS 19:55 Cardiac Injury Profile Ordered. EDMS 19:55 Drug Eval Toxicology ED Only Ordered. EDMS 19:55 Liver Profile Ordered. EDMS 19:55 MED Profile Ordered. EDMS 19:55 Thyroid Stimulating Hormone Ordered. EDMS 19:55 Troponin Ordered. EDMS 19:55 Urinalysis Ordered. EDMS 19:55 Urine Culture Ordered. EDMS 19:56 CT Head Without Contrast Ordered. EDMS 19:56 Chest, 1 View Ordered. EDMS 19:56 ECG WITH READING ER PHYS+CARDIAG ordered. EDMS 20:37 Acetaminophen Tablet 975 mg PO once ordered. ke 20:38 Obtain sample by nasopharyngeal swab ordered. ke 20:39 -Influenza A&B Rapid Antigen - Nose Ordered. EDMS 21:42 CBC with Diff Reviewed. ke 21:42 Urinalysis Reviewed. ke 21:42 Drug Eval Toxicology ED Only Reviewed. ke 21:42 -Influenza A&B Rapid Antigen - Nose Reviewed. ke 21:42 CT Head Without Contrast Reviewed. ke 21:53 levofloxacin 500 mg PO once ordered. ke 22:36 RESPIRATORY PANEL Ordered. EDMS 22:37 BLOOD CULTURES Ordered. EDMS 22:46 BASIC METABOLIC PROFILE Ordered. EDMS 22:46 COMPLETE BLOOD COUNT Ordered. EDMS 22:47 PHYSICAL THERAPY EVAL & TREAT ordered. EDMS 22:47 Admission / Observation Status ordered. EDMS 22:48 Financial registration complete. zo 22:48 2 GRAM SODIUM DIET ordered. EDMS 22:48 [facility] [place] Agreement was scanned into [employer] and attached to record. zo 11/24 12:00 T-Sheet-- Draft Copy was scanned into [employer] and attached to record. gb 12:00 ECG/EKG was scanned into [employer] and attached to record. gb 12:01 Rhythm Strip was scanned into [employer] and attached to record. gb Administered Medications: 11/23 20:40 Drug: Acetaminophen 975 mg [acetaminophen 325 mg tablet (3 tabs)] Route: PO; cf2 11/24 01:13 Follow up: Response: Pain is decreased cf2 11/23 21:53 CANCELLED (Other Intervention Used): Nitrofurantoin 100 mg PO once ke 22:03 Drug: levofloxacin 500 mg [levofloxacin 250 mg tablet (2 tabs)] Route: PO; cf2 11/24 01:13 Follow up: Response: No Adverse Reaction; No significant change. cf2 Signatures: Dispatcher [employer] EDMS Bisi Larios, Reg Reg gb Boni Levy, HEALTH CARE ADMINISTRATOR HEALTH CARE ADMINISTRATOR Brisa Rosales Kelsi,THADDEUS RN kc3 Sherlyn Mayer RN RN cf2 Oh Pratt RN RN sa The chart was reviewed and I authenticate all verbal orders and agree with the evaluation and treatment provided.Corrections: (The following items were deleted from the chart) 11/23 21:53 21:52 Nitrofurantoin 100 mg PO once ordered. deric leos Attachments: 22:48 [facility] [place] Agreement zo 11/24 12:00 T-Sheet-- Draft Copy gb 12:00 ECG/EKG gb Chart Complete MTDD
--- NOTE | 2016-11-26 02:46 | EDDOCDS ---
Physician Documentation [facility] Name: Ashtyn Marcum Age: 81 yrs Sex: Female : 1935 Arrival Date: 11/23/2016 Time: 18:19 Bed 12 Private MD: Misael Cid Disposition: 11/23/16 21:53 Hospitalization ordered by Kendall Nair for Inpatient Admission. Preliminary diagnosis are Altered mental status, unspecified, Urinary tract infection, site not specified, Dementia in other diseases classified elsewhere. - Bed requested for 4 [place]. - Status is Inpatient Admission. cf2 - Condition is Stable. - Problem is an ongoing problem. - Symptoms are unchanged. Historical: - Allergies: no known allergies; - Home Meds: 1. potassium chloride 10 mEq Oral cpER 2 caps once daily 2. Haloperidol 0.5mg Oral daily 3. Vitamin D2 50,000 unit oral cap 1 cap every 2 weeks 4. losartan 100 mg oral tab 1 tab once daily 5. pravastatin 40 mg oral tab 1 tab once daily 6. atenolol 25 mg Oral tab 1 tab once daily 7. citalopram 40 mg Oral tab 1 tab once daily - PMHx: Hypercholesterolemia; Hypertension; Alzheimers; Dementia; - PSHx: none; - Social history: Smoking status: Patient states was never smoker of tobacco. No barriers to communication noted, The patient speaks fluent Romansh, Speaks appropriately for age. - Family history: Not pertinent. - : The pt / caregiver states he / she is not on anticoagulants. Home medication list is obtained from the patient. - Exposure Risk Screening:: None identified. Vital Signs: 11/23 18:41 BP 143 / 85; Pulse 89; Resp 18; Temp 99.8(TE); Pulse Ox 91% on R/A; Weight 74.84 kg / kc3 164.99 lbs; Height 5 ft. 4 in. (162.56 cm); 20:24 Temp 100(O); jlm 20:38 Temp 102.4(R); cf2 20:58 Pulse Ox 91% ; cf2 20:58 BP 164 / 71 (auto/); cf2 20:58 Pulse 88; Resp 16; cf2 21:28 BP 136 / 65 (auto/); cf2 21:28 Pulse Ox 91% ; cf2 22:00 BP 123 / 78; Pulse 82; Resp 16; Temp 100.1; Pulse Ox 94% on 2 lpm NC; Pain 0/10; cf2 22:25 Temp 100.2(O); cf2 11/24 00:00 BP 132 / 78; Pulse 88; Resp 18; Temp 100.0; Pulse Ox 95% on 2 lpm NC; Pain 0/10; cf2 01:44 BP 122 / 58; Pulse 70; Resp 18; Temp 97.7; Pulse Ox 95% on 2 lpm NC; Pain 0/10; cf2 11/23 18:41 Body Mass Index 28.32 (74.84 kg, 162.56 cm) kc3 MDM: 11/23 19:54 Knitting Teacher/Pulse Ox/q 15 min VS ordered. ke 19:54 Accucheck ordered. ke 19:54 IV Saline Lock ordered. ke 19:54 Oxygen at 4L/Min NC or Home dosage ordered. ke 19:54 Rhythm Strip to chart ordered. ke 19:55 CBC with Diff Ordered. EDMS 19:55 Cardiac Injury Profile Ordered. EDMS 19:55 Drug Eval Toxicology ED Only Ordered. EDMS 19:55 Liver Profile Ordered. EDMS 19:55 MED Profile Ordered. EDMS 19:55 Thyroid Stimulating Hormone Ordered. EDMS 19:55 Troponin Ordered. EDMS 19:55 Urinalysis Ordered. EDMS 19:55 Urine Culture Ordered. EDMS 19:56 CT Head Without Contrast Ordered. EDMS 19:56 Chest, 1 View Ordered. EDMS 19:56 ECG WITH READING ER PHYS+CARDIAG ordered. EDMS 20:37 Acetaminophen Tablet 975 mg PO once ordered. ke 20:38 Obtain sample by nasopharyngeal swab ordered. ke 20:39 -Influenza A&B Rapid Antigen - Nose Ordered. EDMS 21:42 CBC with Diff Reviewed. ke 21:42 Urinalysis Reviewed. ke 21:42 Drug Eval Toxicology ED Only Reviewed. ke 21:42 -Influenza A&B Rapid Antigen - Nose Reviewed. ke 21:42 CT Head Without Contrast Reviewed. ke 21:53 levofloxacin 500 mg PO once ordered. ke 22:36 RESPIRATORY PANEL Ordered. EDMS 22:37 BLOOD CULTURES Ordered. EDMS 22:46 BASIC METABOLIC PROFILE Ordered. EDMS 22:46 COMPLETE BLOOD COUNT Ordered. EDMS 22:47 PHYSICAL THERAPY EVAL & TREAT ordered. EDMS 22:47 Admission / Observation Status ordered. EDMS 22:48 Financial registration complete. zo 22:48 2 GRAM SODIUM DIET ordered. EDMS 22:48 [facility] Payment Agreement was scanned into [employer] and attached to record. zo 11/24 12:00 T-Sheet-- Draft Copy was scanned into [employer] and attached to record. gb 12:00 ECG/EKG was scanned into [employer] and attached to record. gb 12:01 Rhythm Strip was scanned into [employer] and attached to record. gb Administered Medications: 11/23 20:40 Drug: Acetaminophen 975 mg [acetaminophen 325 mg tablet (3 tabs)] Route: PO; cf2 11/24 01:13 Follow up: Response: Pain is decreased cf2 11/23 21:53 CANCELLED (Other Intervention Used): Nitrofurantoin 100 mg PO once ke 22:03 Drug: levofloxacin 500 mg [levofloxacin 250 mg tablet (2 tabs)] Route: PO; cf2 11/24 01:13 Follow up: Response: No Adverse Reaction; No significant change. cf2 Signatures: Dispatcher [employer] EDMS Bisi Larios, Reg Reg gb Boni Levy, JACKER FEEDER JACKER FEEDER Brisa Rosales Kelsi,THADDEUS RN kc3 Sherlyn Mayer RN RN cf2 Oh Pratt RN RN sa The chart was reviewed and I authenticate all verbal orders and agree with the evaluation and treatment provided.Corrections: (The following items were deleted from the chart) 11/23 21:53 21:52 Nitrofurantoin 100 mg PO once ordered. deric leos Attachments: 22:48 [facility] Payment Agreement zo 11/24 12:00 T-Sheet-- Draft Copy gb 12:00 ECG/EKG gb Chart Complete MTDD
--- NOTE | 2016-11-26 02:48 | EDDOCDS ---
Nurse's Notes [facility] Name: Ashtyn Marcum Age: 81 yrs Sex: Female : 1935 Arrival Date: 11/23/2016 Time: 18:19 Bed 12 Private MD: Misael Cid Diagnosis: Altered mental status, unspecified;Urinary tract infection, site not specified;Dementia in other diseases classified elsewhere Presentation: 11/23 18:28 Presenting complaint: EMS states: Pt with hx of dementia with worsened confusion and kc3 unsteady gait since approx 3pm this afternoon. Pt with productive cough. Adult Sepsis Screening: Patient has new or worsening altered mentation (1 point). Patient's respiratory rate is less than 22. Systolic blood pressure is greater than 100. Patient has a qSOFA score of 1- Negative Sepsis Screen. Suicide/Homicide risk assessment- the patient denies having any suicidal and/or homicidal ideations and does not present with any other emotional, behavioral or mental health complaints. Status: Patient is not a library services dean or dependent. Transition of care: patient was not received from another setting of care. 18:28 Acuity: JHON Level 3 kc3 18:28 Method Of Arrival: Ambulance kc3 Triage Assessment: 18:45 General: Appears in no apparent distress, comfortable, Behavior is appropriate for age, kc3 cooperative. Pain: Unable to use pain scale. Does not appear to understand pain scale. The patient is triaged at the bedside. See Assessment in Nurses Notes section of ED record. Neurological: Level of Consciousness is awake, alert, obeys commands, Oriented to person. Respiratory: Airway is patent Respiratory effort is even, unlabored. Derm: Skin is pink, warm & dry. Musculoskeletal: Circulation, motion, and sensation intact. Historical: - Allergies: no known allergies; - Home Meds: 1. potassium chloride 10 mEq Oral cpER 2 caps once daily 2. Haloperidol 0.5mg Oral daily 3. Vitamin D2 50,000 unit oral cap 1 cap every 2 weeks 4. losartan 100 mg oral tab 1 tab once daily 5. pravastatin 40 mg oral tab 1 tab once daily 6. atenolol 25 mg Oral tab 1 tab once daily 7. citalopram 40 mg Oral tab 1 tab once daily - PMHx: Hypercholesterolemia; Hypertension; Alzheimers; Dementia; - PSHx: none; - Social history: Smoking status: Patient states was never smoker of tobacco. No barriers to communication noted, The patient speaks fluent [place], Speaks appropriately for age. - Family history: Not pertinent. - : The pt / caregiver states he / she is not on anticoagulants. Home medication list is obtained from the patient. - Exposure Risk Screening:: None identified. Screenin:46 Screening information is obtained from the patient. Fall risk: At risk due to apparent kc3 cognitive impairment, The following interventions are performed due to a positive Fall Risk Screen: Fall Risk is added to Special Handling on the patient Summary Screen. A Fall Risk Bracelet was applied to the patient. Side Rails are placed in the up position. A Call Fink is given with instruction to call for help when getting out of bed. Fall Alert bracelet is placed on the patient. Assistance ADL's: Requires assistance with meal preparation, this assistance is provided by family members, bathing, assistance is provided by family members, dressing, assistance is provided by family members, toileting, assistance is provided by family members, ambulation, assistance is provided by family members, housework, assistance is provided by family members, medication administration, assistance is provided by family members. Abuse/DV Screen: The patient / caregiver reports he/she is: not in a situation that causes fear, pain or injury. Nutritional screening: No deficits noted. Advance Directives: Currently, there is no health care proxy. home support is adequate. Assessment: 18:47 General: See triage assessment for initial assessment. . kc3 20:00 General: Per patient family, they are requesting senior living care facility for patient. cf2 transition social worker and PA made aware. It was explained to family if patient was to be discharged call PMD and request a MADY. If patient was to be admitted, they could speak with in-house transition social worker about senior living placement. 22:25 Adult Sepsis Screening: Patient has new or worsening altered mentation (1 point). cf2 Patient's respiratory rate is less than 22. Systolic blood pressure is greater than 100. Patient has a qSOFA score of 0- Negative Sepsis Screen. General: Appears in no apparent distress, comfortable, Behavior is restless, Patient attempting to climb out of bed . 11/24 00:51 Reassessment: Patient states feeling better. Patient states symptoms have improved. cf2 Patient resting at present time. Will continue to monitor. 01:41 Reassessment: Patient states feeling better. Patient states symptoms have improved. cf2 General: Patient resting comfortably. no s/s distress . Vital Signs: 02 18:41 BP 143 / 85; Pulse 89; Resp 18; Temp 99.8(TE); Pulse Ox 91% on R/A; Weight 74.84 kg; kc3 Height 5 ft. 4 in. (162.56 cm); 20:24 Temp 100(O); jlm 20:38 Temp 102.4(R); cf2 20:58 Pulse Ox 91% ; cf2 20:58 BP 164 / 71 (auto/); cf2 20:58 Pulse 88; Resp 16; cf2 21:28 BP 136 / 65 (auto/); cf2 21:28 Pulse Ox 91% ; cf2 22:00 BP 123 / 78; Pulse 82; Resp 16; Temp 100.1; Pulse Ox 94% on 2 lpm NC; Pain 0/10; cf2 22:25 Temp 100.2(O); cf2 02 00:00 BP 132 / 78; Pulse 88; Resp 18; Temp 100.0; Pulse Ox 95% on 2 lpm NC; Pain 0/10; cf2 01:44 BP 122 / 58; Pulse 70; Resp 18; Temp 97.7; Pulse Ox 95% on 2 lpm NC; Pain 0/10; cf2 02 18:41 Body Mass Index 28.32 (74.84 kg, 162.56 cm) 3 Vitals: 02 18:41 Log In Time N/A - ambulance arrival. 3 ED Course: 18:21 Patient visited by Roxanne Benton, Hospice Volunteer Coordinator. lbd 18:21 Patient moved to Waiting lbd 18:22 Misael Cid is Private Physician. lbd 18:22 Adrianna Soria,RN is Primary Nurse. lbd 18:22 Patient moved to 12 lbd 18:34 Triage Initiated kc3 18:46 The patient / caregiver is instructed regarding the plan of care and ED course. kc3 18:46 Maintain field IV. Dressing intact. Site clean & dry. Gauge & site: 20g left AC. kc3 19:17 Primary Nurse role handed off by Adrianna Soria,RN cf2 19:17 Sherlyn Mayer,RN is Primary Nurse. cf2 19:17 Patient visited by Sherlyn Mayer RN. cf2 19:45 [facility] ke 19:45 Patient visited by Boni Levy FNP. ke 19:45 Patient visited by Boni Levy FNP. ke 20:02 Patient visited by Sherlyn Mayer,THADDEUS. cf2 20:28 CBC with Diff Sent. mgs 20:28 Cardiac Injury Profile Sent. mgs 20:28 Liver Profile Sent. mgs 20:28 MED Profile Sent. mgs 20:28 Thyroid Stimulating Hormone Sent. mgs 20:28 Troponin Sent. mgs 20:36 Patient visited by Boni Levy FNP. ke 20:38 Drug Eval Toxicology ED Only Sent. cf2 20:38 Urinalysis Sent. cf2 20:38 Urine Culture Sent. cf2 21:09 Patient visited by Boni Levy FNP. ke 21:15 CT Head Without Contrast Returned. EDMS 21:24 EKG done. (by ED staff). Reviewed by Boni CARR. jlm 21:25 Patient visited by Lexie Parker, Hospice Volunteer Coordinator. jlm 21:47 Patient visited by Sherlyn Mayer RN. cf2 21:52 Kendall Nair is Hospitalizing Provider. ke 22:24 Patient visited by Sherlyn Mayer RN. cf2 22:48 [facility] Payment Agreement was scanned into [employer] and attached to record. zo 23:24 Patient visited by Sherlyn Mayer RN. cf2 23:24 No procedures done that require assistance. cf2 11/24 01:41 Patient visited by Sherlyn Mayer RN. cf2 01:45 Feliberto Pittman MD is Attending Physician. cf2 12:00 T-Sheet-- Draft Copy was scanned into [employer] and attached to record. gb 12:00 ECG/EKG was scanned into [employer] and attached to record. gb 12:01 Rhythm Strip was scanned into [employer] and attached to record. gb Administered Medications: 11/23 20:40 Drug: Acetaminophen 975 mg [acetaminophen 325 mg tablet (3 tabs)] Route: PO; cf2 11/24 01:13 Follow up: Response: Pain is decreased cf2 11/23 21:53 CANCELLED (Other Intervention Used): Nitrofurantoin 100 mg PO once ke 22:03 Drug: levofloxacin 500 mg [levofloxacin 250 mg tablet (2 tabs)] Route: PO; cf2 11/24 01:13 Follow up: Response: No Adverse Reaction; No significant change. 2 Attachments: 12:01 Rhythm Strip gb Order Results: Lab Order: CBC with Diff; SPEC'M 11/23/16 20:25 Test: WHITE BLOOD COUNT; Value: 9.1; Range: 4.0-10.0; Units: K/mm3; Status: F Test: RED BLOOD COUNT; Value: 4.61; Range: 4.00-5.40; Units: M/mm3; Status: F Test: HEMOGLOBIN; Value: 13.4; Range: 12.0-16.0; Units: g/dl; Status: F Test: HEMATOCRIT; Value: 40.7; Range: 36.0-47.0; Units: %; Status: F Test: MEAN CORPUSCULAR VOLUME; Value: 88.2; Range: 80.0-96.0; Units: fl; Status: F Test: MEAN CORPUSCULAR HEMOGLOBIN; Value: 29.0; Range: 27.0-33.0; Units: pg; Status: F Test: MEAN CORPUSCULAR HGB CONC; Value: 32.9; Range: 32.0-36.5; Units: g/dl; Status: F Test: RED CELL DISTRIBUTION WIDTH; Value: 12.8; Range: 11.5-14.5; Units: %; Status: F Test: PLATELET COUNT, AUTOMATED; Value: 228; Range: 150-450; Units: k/mm3; Status: F Test: NEUTROPHILS %; Value: 90.9; Range: 36.0-66.0; Abnormal: Above high normal; Units: %; Status: F Test: LYMPH %; Value: 5.0; Range: 24.0-44.0; Abnormal: Below low normal; Units: %; Status: F Test: MONO %; Value: 3.1; Range: 0.0-5.0; Units: %; Status: F Test: EOS %; Value: 0.3; Range: 0.0-3.0; Units: %; Status: F Test: BASO %; Value: 0.1; Range: 0.0-1.0; Units: %; Status: F Test: LARGE UNSTAINED CELL %; Value: 0.7; Range: 0.0-4.0; Units: %; Status: F Test: NEUTROPHILS #; Value: 8.2; Range: 1.8-7.7; Abnormal: Above high normal; Units: K/mm3; Status: F Test: LYMPH #; Value: 0.5; Range: 1.5-4.5; Abnormal: Below low normal; Units: K/mm3; Status: F Test: MONO #; Value: 0.3; Range: 0.0-0.8; Units: K/mm3; Status: F Test: EOS #; Value: 0.0; Range: 0.0-0.50; Units: K/mm3; Status: F Test: BASO #; Value: 0.0; Range: 0.0-0.2; Units: K/mm3; Status: F Test: LARGE UNSTAINED CELL #; Value: 0.1; Range: 0.0-0.4; Units: K/mm3; Status: F Lab Order: Cardiac Injury Profile; SPEC'M 11/23/16 21:57 Test: CPK CREATINE PHOSPHOKINASE; Value: 127; Range: 26-192; Units: U/L; Status: F Test: CK-MB VALUE MASS; Value: 2.0; Range: 0.0-3.6; Units: NG/ML; Status: F Test: MB/CK RELATIVE INDEX; Value: 1.57; Range: < OR =4; Status: F Test Note: ; DIAGNOSIS CRITERIA MMB ng/ml Relative Index (RI) NON-AMI < or = 5 N/A [place] > 5 < or = 4 AMI > 5 > 4 Lab Order: Drug Eval Toxicology ED Only; SPEC'M 11/23/16 20:33 Test: AMPHETAMINES LEVEL URINE; Value: NEGATIVE; Range: NEGATIVE; Status: F Test: BARBITURATES URINE; Value: NEGATIVE; Range: NEGATIVE; Status: F Test: BENZODIAZEPINES URINE; Value: NEGATIVE; Range: NEGATIVE; Status: F Test: CANNABINOIDS URINE; Value: NEGATIVE; Range: NEGATIVE; Status: F Test: COCAINE METABOLITE URINE; Value: NEGATIVE; Range: NEGATIVE; Status: F Test: METHADONE URINE; Value: NEGATIVE; Range: NEGATIVE; Status: F Test: OPIATES URINE; Value: NEGATIVE; Range: NEGATIVE; Status: F Test: TRICYCLIC ANTIDEPRESS URINE; Value: NEGATIVE; Range: NEGATIVE; Status: F Test Note: ; ALL PRESUMPTIVE POSITIVE FINDINGS ARE UNCONFIRMED NORMAL VALUES THRESHOLD IN NG/ML AMPHETAMINES 1000 METHAMPHETAMINES 1000 BARBITURATES 300 BENZODIAZEPINES 300 CANNABINOIDS (THC) 50 COCAINE METABOLITE 300 METHADONE 300 OPIATES 300 PHENCYCLIDINE 25 TRICYCLIC ANTIDEPRESSANTS 1000 RESULTS ARE FOR MEDICAL PURPOSES ONLY. ALL URINE SPECIMENS WILL BE SAVED FOR 3 DAYS. IF CONFIRMATION OF A PRESUMPTIVE POSTIVE SCREEN RESULT IS DESIRED, CALL CHEMISTRY ([phone]) AND REQUEST URINE TO BE SENT TO REFERENCE LAB. FOR A LIST OF CLOSELY RELATED COMPOUNDS PLEASE CALL THE LAB. Lab Order: Liver Profile; SPEC'M 11/23/16 21:57 Test: AST/SGOT; Value: 26; Range: 15-37; Units: U/L; Status: F Test: ALT/SGPT; Value: 34; Range: 12-78; Units: U/L; Status: F Test: ALKALINE PHOSPHATASE; Value: 71; Range: 45-117; Units: U/L; Status: F Test: BILIRUBIN,TOTAL; Value: 0.6; Range: 0.2-1.0; Units: MG/DL; Status: F Test: BILIRUBIN,DIRECT; Value: 0.2; Range: 0.0-0.2; Units: MG/DL; Status: F Test: TOTAL PROTEIN; Value: 7.3; Range: 6.4-8.2; Units: GM/DL; Status: F Test: ALBUMIN; Value: 3.6; Range: 3.2-5.2; Units: GM/DL; Status: F Test: ALBUMIN/GLOBULIN RATIO; Value: 0.97; Range: 1.00-1.93; Abnormal: Below low normal; Status: F Lab Order: MED Profile; SPEC'M 11/23/16 21:57 Test: GLUCOSE, FASTING; Value: 129; Range: 83-110; Abnormal: Above high normal; Units: MG/DL; Status: F Test: BLOOD UREA NITROGEN; Value: 11; Range: 7-18; Units: MG/DL; Status: F Test: CREATININE FOR GFR; Value: 0.71; Range: 0.55-1.02; Units: MG/DL; Status: F Test: GLOMERULAR FILTRATION RATE; Value: > 60.0; Range: >32; Status: F Test: SODIUM LEVEL; Value: 137; Range: 136-145; Units: MEQ/L; Status: F Test: POTASSIUM SERUM; Value: 3.8; Range: 3.5-5.1; Units: MEQ/L; Status: F Test: CHLORIDE LEVEL; Value: 102; Range: 98-107; Units: MEQ/L; Status: F Test: CARBON DIOXIDE LEVEL; Value: 24; Range: 21-32; Units: MEQ/L; Status: F Test: ANION GAP; Value: 11; Range: 8-16; Units: MEQ/L; Status: F Test: CALCIUM LEVEL; Value: 8.7; Range: 8.8-10.2; Abnormal: Below low normal; Units: MG/DL; Status: F Test Note: ; Units are mL/min/1.73 m2 Chronic Kidney Disease Staging per NKF: Stage I & II GFR >=60 Normal to Mildly Decreased Stage III GFR 30-59 Moderately Decreased Stage IV GFR 15-29 Severely Decreased Stage V GFR <15 Very Little GFR Left ESRD GFR <15 on [facility]ALTH [facility] Lab Order: Thyroid Stimulating Hormone; SPEC'M 11/23/16 21:57 Test: THYROID STIMULATING HORMONE; Value: 2.080; Range: 0.358-3.740; Units: uIU/ML; Status: F Lab Order: Troponin; SPEC'11/23/16 21:57 Test: TROPONIN I; Value: < 0.02; Range: < 0.10; Units: NG/ML; Status: F Test Note: ; Troponin I Reference Interval for [employer] LOCI: 99th Percentile= 0.00-0.045 ng/ml Risk Stratification: <= 0.10 ng/ml Decreased Risk for Adverse Clinical Events. 0.10-1.50 ng/ml Increased Risk for Adverse Clinical Events. Evaluation of additional criterion and/or repeat testing in 2-6 hours is suggested to rule out myocardial damage. >= 1.50 ng/ml Indicative of Myocardial Injury. Lab Order: Urinalysis; SPEC'M 11/23/16 20:33 Test: APPEARANCE, URINE; Value: CLEAR; Range: CLEAR; Status: F Test: COLOR, URINE; Value: YELLOW; Range: YELLOW; Status: F Test: PH,URINE; Value: 5.0; Range: 5.0-9.0; Units: UNITS; Status: F Test: SPECIFIC GRAVITY URINE AUTO; Value: 1.015; Range: 1.002-1.035; Status: F Test: PROTEIN, URINE AUTO; Value: NEGATIVE; Range: NEGATIVE; Units: mg/dL; Status: F Test: GLUCOSE, URINE (UA) AUTO; Value: NEGATIVE; Range: NEGATIVE; Units: mg/dL; Status: F Test: KETONE, URINE AUTO; Value: TRACE; Range: NEGATIVE; Abnormal: Above high normal; Units: mg/dL; Status: F Test: UROBILINOGEN, URINE AUTO; Value: 0.2; Range: 0.0-2.0; Units: mg/dL; Status: F Test: BILIRUBIN, URINE AUTO; Value: NEGATIVE; Range: NEGATIVE; Status: F Test: NITRITE, URINE AUTO; Value: POSITIVE; Range: NEGATIVE; Status: F Test: LEUKOCYTE ESTERASE, URINE AUTO; Value: TRACE; Range: NEGATIVE; Abnormal: Above high normal; Status: F Test: BLOOD, URINE BLOOD; Value: 2+; Range: NEGATIVE; Abnormal: Above high normal; Status: F Test: WBC, URINE AUTO; Value: 17; Range: 0-3; Abnormal: Above high normal; Units: /HPF; Status: F Test: RBC, URINE AUTO; Value: 4; Range: 0-3; Abnormal: Above high normal; Units: /HPF; Status: F Test: BACTERIA, URINE AUTO; Value: 3+; Range: NEGATIVE; Abnormal: Above high normal; Status: F Test: SQUAMOUS EPITHELIAL CELL UR AU; Value: 0; Range: 0-6; Units: /HPF; Status: F Test: MUCUS, URINE; Value: SMALL; Range: NEGATIVE; Status: F Test: HYALINE CAST, URINE AUTO; Value: 0; Range: 0-1; Units: /LPF; Status: F Lab Order: -Influenza A&B Rapid Antigen - Nose; SPEC'M 11/23/16 20:36 Test: INFLUENZA A RAPID SCR by ICA; Value: INFLUENZA A RESULTS NEGATIVE; Status: F Test: INFLUENZA A RAPID SCR by ICA; Value: Comments:; Status: F Test: INFLUENZA B RAPID SCR by ICA; Value: INFLUENZA B RESULTS NEGATIVE; Status: F Test Note: ; The Influenza test is a direct rapid immunoassay for the qualitative detection of Influenza viral antigen. Cell culture (Viral Culture) testing should be considered to confirm NEGATIVE results and to assist in detecting other viruses that can provide similar clinical symptoms. Please contact the lab within 24 hours ([phone]) if confirmatory testing is desired. Radiology Order: CT Head Without Contrast Test: CT Head Without Contrast REASON FOR EXAMINATION: CVA >4.5hrs; ; HISTORY: CVA greater than 4.5 hours; TECHNIQUE: Axial CT was performed of the head without intravenous contrast by obtaining contiguous ax; ial slices from the skull vertex to skull base at level of occipital condyles.; COMPARISON: None; FINDINGS:; No acute intracranial hemorrhage or evidence of acute transcortical ischemia. No suspicious intra-axi; al or extra-axial fluid collection, midline shift, subfalcine herniation, or hydrocephalus.; There is prominence of the cortical sulci and ventricular system and perinephric white matter lucenci; es, more commonly due to age-appropriate atrophy and chronic small vessel ischemic changes respective; ly; Posterior Fossa: Unremarkable; Paranasal sinuses, mastoid air cells are well pneumatized. Optic globes, orbital compartments, osseou; s structures, and extra cranial soft tissues unremarkable.; IMPRESSION:; No acute intracranial abnormality identified.; ; Outcome: 11/23 21:53 Decision to Hospitalize by Provider. ke 23:24 Discharge Assessment: Patient awake, alert and oriented x 3. No cognitive and/or cf2 functional deficits noted. Patient verbalized understanding of disposition instructions. Patient awake and alert. Oriented to person, place and time. patient administered narcotics - no. The following High Risk Discharge criteria are identified: None. Admitted to Med/Surg. Condition: stable Condition: unchanged. CT Study completed. Property family took home. 11/24 01:43 Discharge Assessment: Patient Oriented to person, Patient cf2 01:45 Patient left the ED. cf2 Signatures: Dispatcher [employer] EDMS Roxanne Benton, Hospice Volunteer Coordinator Unit lbd Bisi Larios, Reg Reg gb Boni Levy, PANAMA HAT SMEARER PANAMA HAT SMEARER Brisa Rosales Jessie, Hospice Volunteer Coordinator Unit mariam Finesse Armijo,RN RN s Adrianna Soria,RN RN kc3 Sherlyn Mayer,RN RN cf2 Chart Complete MTDD
[2016-11-26 06:00] VITALS: BP 138/70
[2016-11-26] MEDS ORDERED: ONDANSETRON 4 MG TAB (S0181) PO PRN (06:00)
[2016-11-26 06:34] LABS: MEAN CORPUSCULAR HEMOGLOBIN 28.8 pg (27.0-33.0); MEAN CORPUSCULAR HGB CONC 32.5 g/dl (32.0-36.5); MEAN CORPUSCULAR VOLUME 88.6 fl (80.0-96.0); RED CELL DISTRIBUTION WIDTH 12.8 % (11.5-14.5); WHITE BLOOD COUNT 6.6 K/mm3 (4.0-10.0)
[2016-11-26 06:49] LABS: ANION GAP 7 MEQ/L (8-16); BLOOD UREA NITROGEN 13 MG/DL (7-18); CALCIUM LEVEL 8.5 MG/DL (8.8-10.2); CARBON DIOXIDE LEVEL 27 MEQ/L (21-32); CHLORIDE LEVEL 106 MEQ/L (98-107); CREATININE FOR GFR 0.61 MG/DL (0.55-1.02); GLOMERULAR FILTRATION RATE > 60.0 (>32); GLUCOSE, FASTING 93 MG/DL (83-110); POTASSIUM SERUM 3.5 MEQ/L (3.5-5.1); SODIUM LEVEL 140 MEQ/L (136-145)
[2016-11-26] MEDS: PRAVASTATIN 20 MG TAB PO SCH (08:22)
[2016-11-26] MEDS: LOSARTAN 50 MG TAB PO SCH (08:23)
[2016-11-26] MEDS: CitaloPRAM (CeleXA) 20 MG TAB PO SCH (08:23)
[2016-11-26] MEDS: ATENOLOL 25 MG TAB PO SCH (08:23)
[2016-11-26] MEDS: ENOXAPARIN 30 MG/0.3 ML SYR (J1650) SC SCH (08:24)
[2016-11-26] MEDS: CEFDINIR 300 MG CAP (OMNICEF) PO SCH ×2 (09:58→20:03)
--- NOTE | 2016-11-26 11:56 | IPNPDOC ---
Date Seen The patient was seen on 11/26/16. Progress Note SUBJECTIVE: The patient has no complaints today she is resting comfortably. OBJECTIVE: PHYSICAL EXAMINATION: VITAL SIGNS: Please see below. GENERAL: Pleasant elderly sitting in a recliner she is in no distress whatsoever HEENT:. Pupil is equally round reactive to light she has moist pedis membranes elevation CVP CARDIOVASCULAR: S1-S2 regular. RESPIRATORY: Clear To auscultation. ABDOMINAL: Benign EXTREMITIES: No clubbing cyanosis or edema LABORATORY DATA: Please see below. MICROBIOLOGY: Escherichia coli positive urine culture otherwise Please see below. IMAGING: No new imaging DVT prophylaxis ordered?: Zigabid ASSESSMENT AND PLAN: This is a 81-year-old . Female with acute on chronic encephalopathy secondary to urinary tract infection. 1. Metabolic encephalopathy acute on chronic: The patient has chronic dementia which appears to have worsened over the last several days secondary to urinary tract infection, appears to be improving to her baseline with IV antibiotics. Patient was having low-grade temperatures which appears of resolved at this time she'll be transitioned to by mouth antibiotics today is day 4 2. Dementia: The patient will require mcc placement following completion of her treatment for urinary tract infection. The patient is provided with when necessary Haldol and Ativan 3. Hypertension stable the patient is on losartan and atenolol. 4. Dyslipidemia the patient is on a statin. 5. Depression: The patient is on citalopram. DISPOSITION: Pending placement once adequately treated for urinary tract infection VS, I&O, 24H, Fishbone Vital Signs/I&O Vital Signs Date Time Temp Pulse Resp B/P Pulse Ox O2 Delivery O2 Flow Rate FiO2 11/26/16 08:23 138/70 11/26/16 08:23 65 11/26/16 06:00 97.3 16 95 Room Air I&O- Last 24 Hours up to 6 AM 11/26/16 06:00 Intake Total 1900 ml Balance 1900 ml Laboratory Data 24H LABS Laboratory Tests 2 11/26/16 05:51: Anion Gap 7L, Blood Urea Nitrogen 13, Creatinine 0.61, Sodium Level 140, Potassium Level 3.5, Chloride Level 106, Carbon Dioxide Level 27, Calcium Level 8.5L, Glomerular Filtration Rate > 60.0 CBC/BMP Laboratory Tests 11/26/16 05:51 Calcium Level 8.5 L, Red Blood Count 4.43, Mean Corpuscular Volume 88.6, Mean Corpuscular Hemoglobin 28.8, Mean Corpuscular Hemoglobin Concent 32.5, Red Cell Distribution Width 12.8 Microbiology Microbiology 11/23/16 Blood Culture - Preliminary, Resulted No Growth after 48 hours. All Specime... 11/23/16 Respiratory Virus Panel (PCR) ([facility]) - Final, Complete 11/23/16 Influenza Virus Type A Antigen - Final, Complete 11/23/16 Influenza Virus Type B Antigen - Final, Complete 11/23/16 Urine Culture - Final, Complete Escherichia Coli MALIKA PERALTA MD Nov 26, 2016 11:56
[2016-11-26 14:00] VITALS: BP 107/61
[2016-11-26] MEDS: ACETAMINOPHEN TAB 650MG DOSE (2X325MG) PO PRN (20:03)
[2016-11-26] MEDS: HALOPERIDOL 0.5 MG TAB PO PRN (20:03)
[2016-11-26 22:00] VITALS: BP 124/62
[2016-11-27 06:00] VITALS: BP 145/85
[2016-11-27 06:40] LABS: MEAN CORPUSCULAR VOLUME 87.8 fl (80.0-96.0); RED CELL DISTRIBUTION WIDTH 12.9 % (11.5-14.5); WHITE BLOOD COUNT 6.2 K/mm3 (4.0-10.0)
[2016-11-27 06:58] LABS: ANION GAP 9 MEQ/L (8-16); BLOOD UREA NITROGEN 10 MG/DL (7-18); CALCIUM LEVEL 8.8 MG/DL (8.8-10.2); CARBON DIOXIDE LEVEL 26 MEQ/L (21-32); CHLORIDE LEVEL 107 MEQ/L (98-107); CREATININE FOR GFR 0.57 MG/DL (0.55-1.02); GLOMERULAR FILTRATION RATE > 60.0 (>32); GLUCOSE, FASTING 91 MG/DL (83-110); POTASSIUM SERUM 3.5 MEQ/L (3.5-5.1); SODIUM LEVEL 142 MEQ/L (136-145)
[2016-11-27] MEDS: PRAVASTATIN 20 MG TAB PO SCH (10:37)
[2016-11-27] MEDS: CitaloPRAM (CeleXA) 20 MG TAB PO SCH (10:37)
[2016-11-27] MEDS: CEFDINIR 300 MG CAP (OMNICEF) PO SCH ×2 (10:37→19:48)
[2016-11-27] MEDS: LOSARTAN 50 MG TAB PO SCH (10:38)
[2016-11-27] MEDS: ATENOLOL 25 MG TAB PO SCH (10:38)
[2016-11-27] MEDS: ENOXAPARIN 30 MG/0.3 ML SYR (J1650) SC SCH (10:39)
--- NOTE | 2016-11-27 12:38 | IPNPDOC ---
Date Seen The patient was seen on 11/27/16. Progress Note SUBJECTIVE: The patient has no complaints today she is resting comfortably. OBJECTIVE: PHYSICAL EXAMINATION: VITAL SIGNS: Please see below. GENERAL: Pleasant elderly sitting in a recliner she is in no distress whatsoever HEENT:. Pupil is equally round reactive to light she has moist pedis membranes elevation CVP CARDIOVASCULAR: S1-S2 regular. RESPIRATORY: Clear To auscultation. ABDOMINAL: Benign EXTREMITIES: No clubbing cyanosis or edema LABORATORY DATA: Please see below. MICROBIOLOGY: Escherichia coli positive urine culture otherwise Please see below. IMAGING: No new imaging DVT prophylaxis ordered?: OssDsign AB ASSESSMENT AND PLAN: This is a 81-year-old . Female with acute on chronic encephalopathy secondary to urinary tract infection. 1. Metabolic encephalopathy acute on chronic: The patient has chronic dementia which appears to have worsened over the last several days secondary to urinary tract infection, appears to be improving to her baseline with IV antibiotics. Patient was having low-grade temperatures which appears of resolved at this time she is now on PO antibiotics today is day 5 2. Dementia: The patient will require senior care placement following completion of her treatment for urinary tract infection. The patient is provided with prn Haldol and Ativan 3. Hypertension stable the patient is on losartan and atenolol. 4. Dyslipidemia the patient is on a statin. 5. Depression: The patient is on citalopram. DISPOSITION: Pending placement once treated for urinary tract infection VS, I&O, 24H, [facility] Vital Signs/I&O Vital Signs Date Time Temp Pulse Resp B/P Pulse Ox O2 Delivery O2 Flow Rate FiO2 11/27/16 10:38 80 120/65 11/27/16 06:00 93.7 18 94 Room Air I&O- Last 24 Hours up to 6 AM 11/27/16 06:00 Intake Total 1030 ml Output Total 0 ml Balance 1030 ml Laboratory Data 24H LABS Laboratory Tests 2 11/27/16 06:01: Anion Gap 9, Blood Urea Nitrogen 10, Creatinine 0.57, Sodium Level 142, Potassium Level 3.5, Chloride Level 107, Carbon Dioxide Level 26, Calcium Level 8.8, Glomerular Filtration Rate > 60.0 CBC/BMP Laboratory Tests 11/27/16 06:01 Calcium Level 8.8, Red Blood Count 4.62, Mean Corpuscular Volume 87.8, Mean Corpuscular Hemoglobin 29.0, Mean Corpuscular Hemoglobin Concent 33.0, Red Cell Distribution Width 12.9 Microbiology Microbiology 11/23/16 Blood Culture - Preliminary, Resulted No Growth after 72 hours. All specime... 11/23/16 Respiratory Virus Panel (PCR) ([facility]) - Final, Complete 11/23/16 Influenza Virus Type A Antigen - Final, Complete 11/23/16 Influenza Virus Type B Antigen - Final, Complete 11/23/16 Urine Culture - Final, Complete Escherichia Coli MALIKA PERALTA MD Nov 27, 2016 12:38
[2016-11-27 14:00] VITALS: BP 112/62
[2016-11-27] MEDS: HALOPERIDOL 0.5 MG TAB PO PRN (19:48)
[2016-11-27] MEDS: ACETAMINOPHEN TAB 650MG DOSE (2X325MG) PO PRN (19:49)
[2016-11-27 20:00] VITALS: BP 124/74
[2016-11-28 06:00] VITALS: BP 144/80
[2016-11-28 06:30] LABS: MEAN CORPUSCULAR HEMOGLOBIN 28.8 pg (27.0-33.0); MEAN CORPUSCULAR VOLUME 87.3 fl (80.0-96.0); RED CELL DISTRIBUTION WIDTH 13.1 % (11.5-14.5); WHITE BLOOD COUNT 4.9 K/mm3 (4.0-10.0)
[2016-11-28 06:33] LABS: ANION GAP 8 MEQ/L (8-16); BLOOD UREA NITROGEN 9 MG/DL (7-18); CALCIUM LEVEL 8.8 MG/DL (8.8-10.2); CARBON DIOXIDE LEVEL 27 MEQ/L (21-32); CHLORIDE LEVEL 107 MEQ/L (98-107); CREATININE FOR GFR 0.62 MG/DL (0.55-1.02); GLOMERULAR FILTRATION RATE > 60.0 (>32); GLUCOSE, FASTING 95 MG/DL (83-110); POTASSIUM SERUM 3.7 MEQ/L (3.5-5.1); SODIUM LEVEL 142 MEQ/L (136-145)
[2016-11-28] MEDS: PRAVASTATIN 20 MG TAB PO SCH (08:36)
[2016-11-28] MEDS: CitaloPRAM (CeleXA) 20 MG TAB PO SCH (08:36)
[2016-11-28] MEDS: CEFDINIR 300 MG CAP (OMNICEF) PO SCH ×2 (08:37→20:25)
[2016-11-28] MEDS: LOSARTAN 50 MG TAB PO SCH (08:37)
[2016-11-28] MEDS: ATENOLOL 25 MG TAB PO SCH (08:37)
[2016-11-28] MEDS: ENOXAPARIN 30 MG/0.3 ML SYR (J1650) SC SCH (08:38)
--- NOTE | 2016-11-28 12:49 | IPNPDOC ---
Date Seen The patient was seen on 11/28/16. Progress Note SUBJECTIVE: The patient complains of some mild abdominal discomfort, but she tells me no nausea, no vomitting, no diarrhea and it spontaneously resolved this AM OBJECTIVE: PHYSICAL EXAMINATION: VITAL SIGNS: Please see below. GENERAL: Pleasant elderly sitting in a recliner she is in no distress whatsoever HEENT:. Pupil is equally round reactive to light she has moist pedis membranes elevation CVP CARDIOVASCULAR: S1-S2 regular. RESPIRATORY: Clear To auscultation. ABDOMINAL: Benign EXTREMITIES: No clubbing cyanosis or edema LABORATORY DATA: Please see below. MICROBIOLOGY: Escherichia coli positive urine culture otherwise Please see below. IMAGING: No new imaging DVT prophylaxis ordered?: Lovenox ASSESSMENT AND PLAN: This is a 81-year-old . Female with acute on chronic encephalopathy secondary to urinary tract infection. 1. Metabolic encephalopathy acute on chronic: The patient has chronic dementia which appears to have worsened over the last several days secondary to urinary tract infection, appears to be improving to her baseline with antibiotics. Patient was having low-grade temperatures which appears of resolved at this time she is now on PO antibiotics today is day 6 2. Dementia: The patient will require detention placement following completion of her treatment for urinary tract infection. The patient is provided with prn Haldol and Ativan 3. Hypertension stable the patient is on losartan and atenolol. 4. Dyslipidemia the patient is on a statin. 5. Depression: The patient is on citalopram. 6. MIld abdominal discomfort: will simply monitor for now, did self resolve DISPOSITION: Pending placement VS, I&O, 24H, [facility] Vital Signs/I&O Vital Signs Date Time Temp Pulse Resp B/P Pulse Ox O2 Delivery O2 Flow Rate FiO2 11/28/16 08:37 144/80 11/28/16 08:37 76 11/28/16 06:00 97.3 21 94 Room Air I&O- Last 24 Hours up to 6 AM 11/28/16 06:00 Intake Total 970 ml Output Total 0 ml Balance 970 ml Laboratory Data 24H LABS Laboratory Tests 2 11/28/16 06:05: Anion Gap 8, Blood Urea Nitrogen 9, Creatinine 0.62, Sodium Level 142, Potassium Level 3.7, Chloride Level 107, Carbon Dioxide Level 27, Calcium Level 8.8, Glomerular Filtration Rate > 60.0 CBC/BMP Laboratory Tests 11/28/16 06:05 Calcium Level 8.8, Red Blood Count 4.43, Mean Corpuscular Volume 87.3, Mean Corpuscular Hemoglobin 28.8, Mean Corpuscular Hemoglobin Concent 33.0, Red Cell Distribution Width 13.1 Microbiology Microbiology 11/23/16 Blood Culture - Preliminary, Resulted No Growth after 72 hours. All specime... 11/23/16 Respiratory Virus Panel (PCR) ([facility]) - Final, Complete 11/23/16 Influenza Virus Type A Antigen - Final, Complete 11/23/16 Influenza Virus Type B Antigen - Final, Complete 11/23/16 Urine Culture - Final, Complete Escherichia Coli MALIKA PERALTA MD Nov 28, 2016 12:49
[2016-11-28 14:00] VITALS: BP 114/64
[2016-11-28] MEDS: ACETAMINOPHEN TAB 650MG DOSE (2X325MG) PO PRN (20:25)
[2016-11-28] MEDS: HALOPERIDOL 0.5 MG TAB PO PRN (20:25)
[2016-11-28 22:00] VITALS: BP 162/75
[2016-11-29 06:00] VITALS: BP 148/72
[2016-11-29 06:57] LABS: MEAN CORPUSCULAR HEMOGLOBIN 29.6 pg (27.0-33.0); MEAN CORPUSCULAR HGB CONC 33.9 g/dl (32.0-36.5); MEAN CORPUSCULAR VOLUME 87.4 fl (80.0-96.0); RED CELL DISTRIBUTION WIDTH 12.8 % (11.5-14.5); WHITE BLOOD COUNT 4.8 K/mm3 (4.0-10.0)
[2016-11-29 07:09] LABS: ANION GAP 12 MEQ/L (8-16); BLOOD UREA NITROGEN 9 MG/DL (7-18); CALCIUM LEVEL 8.4 MG/DL (8.8-10.2); CARBON DIOXIDE LEVEL 24 MEQ/L (21-32); CHLORIDE LEVEL 113 MEQ/L (98-107); CREATININE FOR GFR 0.58 MG/DL (0.55-1.02); GLOMERULAR FILTRATION RATE > 60.0 (>32); GLUCOSE, FASTING 89 MG/DL (83-110); POTASSIUM SERUM 3.6 MEQ/L (3.5-5.1); SODIUM LEVEL 149 MEQ/L (136-145)
[2016-11-29] MEDS: LOSARTAN 50 MG TAB PO SCH (09:28)
[2016-11-29] MEDS: CEFDINIR 300 MG CAP (OMNICEF) PO SCH ×2 (09:28→20:00)
[2016-11-29] MEDS: PRAVASTATIN 20 MG TAB PO SCH (09:28)
[2016-11-29] MEDS: CitaloPRAM (CeleXA) 20 MG TAB PO SCH (09:28)
[2016-11-29] MEDS: ATENOLOL 25 MG TAB PO SCH (09:29)
[2016-11-29] MEDS: ENOXAPARIN 30 MG/0.3 ML SYR (J1650) SC SCH (09:29)
[2016-11-29 14:00] VITALS: BP 101/61
--- NOTE | 2016-11-29 15:49 | IPN ---
DATE: 11/29/2016 Patient is seen and examined. No acute events overnight. Denies any chest pain, pressure, discomfort, shortness of breath. No nausea, no vomiting. VITAL SIGNS: Temperature 96.8, pulse 79, respirations 17, blood pressure 148/72, pulse oximetry 94% on room air. LABORATORY DATA: WBC 4.8, hemoglobin and hematocrit 12.7/37.4, platelets 290. Chemistry: Sodium 149, potassium 3.6, chloride 113, bicarbonate 24, BUN 9, creatinine 0.58. PHYSICAL EXAMINATION: GENERAL: Pleasant, elderly, female in no acute distress. HEENT: Normocephalic, atraumatic. Moist mucous membranes. Pupils equal, round, and reactive bilaterally. CARDIAC: Regular rate and rhythm, normal S1, S2. PULMONARY: Bilaterally clear to auscultation. ABDOMEN: Soft, nontender, positive bowel sounds. EXTREMITIES: No clubbing, cyanosis, or edema. ASSESSMENT AND PLAN: This is an 81-year-old female patient with underlying medical history of dyslipidemia, hypertension, Alzheimer's dementia, was brought in to the emergency department (ED) for acute on chronic encephalopathy, possibly secondary to urinary tract infection (UTI) and also worsening dementia. 1. Metabolic encephalopathy, acute on chronic, possibly secondary to urinary tract infection (UTI), with underlying chronic dementia. Mental status slightly improved. Continue treatment for urinary tract infection (UTI). Haldol as needed. Continue Celexa. Will monitor. 2. Urinary tract infection (UTI). Continue antibiotics. Culture is positive for Escherichia (E) coli. 3. Dementia. Patient will likely need placement at prison facility. Haldol as needed. 4. Hypertension. Continue losartan and atenolol. 5. Dyslipidemia. Continue statin. 6. Depression. Continue citalopram. 7. Deep venous thrombosis (DVT) prophylaxis. Lovenox subcutaneous. DISPOSITION PLANNING: Pending placement.
[2016-11-29] MEDS: QUEtiapine FUMARATE 12.5 MG HALF-TAB PO PRN (17:31)
[2016-11-29] MEDS: HALOPERIDOL 0.5 MG TAB PO PRN (20:01)
[2016-11-29] MEDS: ACETAMINOPHEN TAB 650MG DOSE (2X325MG) PO PRN (20:02)
[2016-11-29 22:00] VITALS: BP 124/64
[2016-11-30 06:00] VITALS: BP 103/59
[2016-11-30 06:54] LABS: MEAN CORPUSCULAR HEMOGLOBIN 29.1 pg (27.0-33.0); MEAN CORPUSCULAR HGB CONC 32.7 g/dl (32.0-36.5); MEAN CORPUSCULAR VOLUME 89.2 fl (80.0-96.0); RED CELL DISTRIBUTION WIDTH 13.1 % (11.5-14.5); WHITE BLOOD COUNT 4.2 K/mm3 (4.0-10.0)
[2016-11-30 06:56] LABS: ANION GAP 9 MEQ/L (8-16); BLOOD UREA NITROGEN 8 MG/DL (7-18); CALCIUM LEVEL 8.9 MG/DL (8.8-10.2); CARBON DIOXIDE LEVEL 26 MEQ/L (21-32); CHLORIDE LEVEL 107 MEQ/L (98-107); CREATININE FOR GFR 0.63 MG/DL (0.55-1.02); GLOMERULAR FILTRATION RATE > 60.0 (>32); GLUCOSE, FASTING 84 MG/DL (83-110); POTASSIUM SERUM 3.7 MEQ/L (3.5-5.1); SODIUM LEVEL 142 MEQ/L (136-145)
[2016-11-30] MEDS: LOSARTAN 50 MG TAB PO SCH (07:58)
[2016-11-30] MEDS: ATENOLOL 25 MG TAB PO SCH (07:59)
[2016-11-30] MEDS: CEFDINIR 300 MG CAP (OMNICEF) PO SCH ×2 (08:01→20:03)
[2016-11-30] MEDS: ENOXAPARIN 30 MG/0.3 ML SYR (J1650) SC SCH (08:02)
[2016-11-30] MEDS: PRAVASTATIN 20 MG TAB PO SCH (08:02)
[2016-11-30] MEDS: QUEtiapine FUMARATE 12.5 MG HALF-TAB PO PRN ×2 (08:02→12:07)
[2016-11-30] MEDS: CitaloPRAM (CeleXA) 20 MG TAB PO SCH (08:02)
[2016-11-30 14:00] VITALS: BP 102/61
--- NOTE | 2016-11-30 17:51 | IPN ---
DATE: 11/30/2016 SUBJECTIVE: Patient seen and examined. No acute events overnight. Denies any chest pain, pressure or discomfort, shortness of breath. No nausea or vomiting. As per nursing staff, the patient wanders around on the floor. VITAL SIGNS: Temperature 96.9, pulse 76, respirations 17, blood pressure 103/59, pulse oximetry 97% on room air. LABORATORY DATA: WBC 4.2, hemoglobin and hematocrit 12.4 over 38.1, platelets 310. Chemistry: Sodium 142, potassium 3.7, chloride 107, bicarbonate 26, BUN 8, creatinine 0.63. PHYSICAL EXAMINATION: GENERAL: Pleasant, elderly female in no acute distress. HEENT: Normocephalic, atraumatic. Moist mucous membranes. Pupils equal, round, and reactive bilaterally. CARDIAC: Regular rate and rhythm. Normal S1, S2. PULMONARY: Bilaterally clear to auscultation. ABDOMEN: Soft, nontender. Positive bowel sounds. EXTREMITIES: No clubbing, cyanosis or edema. ASSESSMENT AND PLAN: This is an 81-year-old female patient with underlying medical history of dyslipidemia, hypertension, Alzheimer's dementia, who was brought into the emergency room for acute on chronic encephalopathy, possibly secondary to urinary tract infection (UTI), and also with worsening dementia. 1. Metabolic encephalopathy, acute on chronic, possibly secondary to underlying urinary tract infection (UTI) with underlying chronic dementia. Mental status slightly improved. Continue medication. Continue antibiotics for treatment of UTI. Haldol as needed. Seroquel 25 mg by mouth twice a day. Celexa has been discontinued. Will continue to monitor. 2. Urinary tract infection (UTI). Continue antibiotics. Culture positive for Escherichia (E.) coli. 3. Dementia. Patient will likely need placement at a nursing home facility. Continue medication as ordered, supportive care. Will followup electrocardiogram (EKG) for QTC prolongation. 4. Hypertension. Continue losartan, atenolol. Monitor blood pressure. 5. Dyslipidemia. Continue statin. 6. Depression. Continue current medications. We will continue to monitor. 7. Deep venous thrombosis (DVT) prophylaxis. Lovenox subcutaneous. DISPOSITION PLANNING: Pending placement.
[2016-11-30] MEDS: HALOPERIDOL 0.5 MG TAB PO PRN (20:03)
[2016-11-30] MEDS: QUEtiapine FUMARATE 25 MG TAB PO SCH (20:04)
[2016-11-30 22:00] VITALS: BP 107/59
[2016-12-01 06:00] VITALS: BP 129/71
[2016-12-01 06:43] LABS: MEAN CORPUSCULAR HEMOGLOBIN 29.4 pg (27.0-33.0); MEAN CORPUSCULAR HGB CONC 32.9 g/dl (32.0-36.5); MEAN CORPUSCULAR VOLUME 89.2 fl (80.0-96.0); WHITE BLOOD COUNT 4.5 K/mm3 (4.0-10.0)
[2016-12-01 07:05] LABS: ANION GAP 8 MEQ/L (8-16); BLOOD UREA NITROGEN 11 MG/DL (7-18); CALCIUM LEVEL 8.8 MG/DL (8.8-10.2); CARBON DIOXIDE LEVEL 28 MEQ/L (21-32); CHLORIDE LEVEL 106 MEQ/L (98-107); GLOMERULAR FILTRATION RATE > 60.0 (>32); GLUCOSE, FASTING 90 MG/DL (83-110); POTASSIUM SERUM 3.7 MEQ/L (3.5-5.1); SODIUM LEVEL 142 MEQ/L (136-145)
[2016-12-01] MEDS: CEFDINIR 300 MG CAP (OMNICEF) PO SCH ×2 (08:20→19:49)
[2016-12-01] MEDS: ATENOLOL 25 MG TAB PO SCH (08:20)
[2016-12-01] MEDS: PRAVASTATIN 20 MG TAB PO SCH (08:20)
[2016-12-01] MEDS: QUEtiapine FUMARATE 25 MG TAB PO SCH ×2 (08:20→19:49)
[2016-12-01] MEDS: LOSARTAN 50 MG TAB PO SCH (08:20)
[2016-12-01] MEDS: ENOXAPARIN 30 MG/0.3 ML SYR (J1650) SC SCH (08:21)
--- NOTE | 2016-12-01 09:03 | ECGEPIP ---
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 Marginal inferoapical ST/T wave abnormality No change from 11/25/16. Electronically Signed On 12-01-2016 9:02:53 EST by Saleem Farrar
[2016-12-01] MEDS ORDERED: POTASSIUM CHLORIDE 10 MEQ SR TABLET PO ONE (10:30)
[2016-12-01 14:00] VITALS: BP 106/64
--- NOTE | 2016-12-01 17:31 | IPN ---
DATE: 12/01/2016 Patient is seen and examined. Continues to be confused. No acute events overnight. Denies any chest pain, pressure, or discomfort. VITAL SIGNS: Temperature 97.3, pulse 73, respirations 18, blood pressure 106/64, pulse oximetry 97% on room air. LABORATORY DATA: WBC 4.5, hemoglobin and hematocrit 12.6/38.3, platelets 309. Chemistry: Sodium 142, potassium 3.7, chloride 106, bicarbonate 26, BUN 11, creatinine 0.7. PHYSICAL EXAMINATION: GENERAL: Patient pleasant, elderly female, confused. HEENT: Normocephalic, atraumatic. Moist mucous membranes. Pupils equal, round, and reactive. CARDIAC: Regular rate and rhythm. Normal S1, S2. PULMONARY: Bilaterally clear to auscultation. ABDOMEN: Soft, nontender, nondistended, positive bowel sounds. EXTREMITIES: No clubbing, cyanosis, or edema. ASSESSMENT AND PLAN: This is an 81-year-old female patient with underlying medical history of dyslipidemia, hypertension, Alzheimer's dementia, who was brought into the emergency room for acute on chronic encephalopathy, possibly secondary to urinary tract infection (UTI) with possible worsening dementia. 1. Metabolic encephalopathy, acute on chronic, possibly secondary to underlying urinary tract infection (UTI) with underlying chronic dementia. Mental status slightly improved. Continue medication. Continue antibiotics for treatment for urinary tract infection (UTI). Haldol as needed. Seroquel 25 mg by mouth twice a day. Celexa has been discontinued. EKG is appreciated, followup QTc. 2. Urinary tract infection (UTI). Continue antibiotics. Culture positive for Escherichia (E) coli. Patient will complete a course of oral antibiotics. 3. Dementia. Patient will likely need placement at a alf facility. Continue medication as ordered. Supportive care. EKG to monitor QT prolongation is appreciated. 4. Hypertension. Continue losartan and atenolol. Monitor blood pressure. 5. Dyslipidemia. Continue statin. 6. Depression. Continue current medication. Will continue to monitor. 7. Deep venous thrombosis (DVT) prophylaxis. Lovenox subcutaneous. DISPOSITION: Pending placement.
[2016-12-01] MEDS: HALOPERIDOL 0.5 MG TAB PO PRN (19:49)
[2016-12-01 22:00] VITALS: BP 136/76
[2016-12-02 06:00] VITALS: BP 140/81
[2016-12-02] MEDS: ATENOLOL 25 MG TAB PO SCH (09:13)
[2016-12-02] MEDS: ENOXAPARIN 30 MG/0.3 ML SYR (J1650) SC SCH (09:13)
[2016-12-02] MEDS: PRAVASTATIN 20 MG TAB PO SCH (09:13)
[2016-12-02] MEDS: QUEtiapine FUMARATE 25 MG TAB PO SCH ×2 (09:13→20:06)
[2016-12-02] MEDS: LOSARTAN 50 MG TAB PO SCH (09:13)
[2016-12-02] MEDS: CEFDINIR 300 MG CAP (OMNICEF) PO SCH (09:14)
[2016-12-02 14:00] VITALS: BP 113/56
[2016-12-02 22:00] VITALS: BP 122/59
[2016-12-03 06:00] VITALS: BP 135/84
[2016-12-03 06:17] LABS: MEAN CORPUSCULAR HGB CONC 32.6 g/dl (32.0-36.5); MEAN CORPUSCULAR VOLUME 88.9 fl (80.0-96.0); RED CELL DISTRIBUTION WIDTH 13.2 % (11.5-14.5); WHITE BLOOD COUNT 3.2 K/mm3 (4.0-10.0)
[2016-12-03 06:18] LABS: ANION GAP 8 MEQ/L (8-16); BLOOD UREA NITROGEN 11 MG/DL (7-18); CALCIUM LEVEL 8.7 MG/DL (8.8-10.2); CARBON DIOXIDE LEVEL 27 MEQ/L (21-32); CHLORIDE LEVEL 109 MEQ/L (98-107); GLOMERULAR FILTRATION RATE > 60.0 (>32); GLUCOSE, FASTING 89 MG/DL (83-110); MAGNESIUM LEVEL 2.1 MG/DL (1.8-2.4); POTASSIUM SERUM 3.8 MEQ/L (3.5-5.1); SODIUM LEVEL 144 MEQ/L (136-145)
[2016-12-03] MEDS: ACETAMINOPHEN TAB 650MG DOSE (2X325MG) PO PRN (06:48)
[2016-12-03] MEDS: QUEtiapine FUMARATE 25 MG TAB PO SCH ×2 (09:02→19:53)
[2016-12-03] MEDS: PRAVASTATIN 20 MG TAB PO SCH (09:02)
[2016-12-03] MEDS: ENOXAPARIN 30 MG/0.3 ML SYR (J1650) SC SCH (09:02)
[2016-12-03] MEDS: LOSARTAN 50 MG TAB PO SCH (09:02)
[2016-12-03] MEDS: ATENOLOL 25 MG TAB PO SCH (09:02)
--- NOTE | 2016-12-03 13:14 | IPN ---
DATE OF SERVICE: 12/02/2016 Patient seen and examine. No acute events overnight. Denies any chest pain, pressure or discomfort. Continues to be confused. VITAL SIGNS: Temperature 97.9, pulse 73, respirations 18, blood pressure 113/56, pulse oximetry 96% on room air. LABORATORY DATA: WBC 4.5, hemoglobin and hematocrit (H and H) 12.6 and 38.3, platelets 309. Chemistry: Sodium 142, potassium 3.9, chloride 106, bicarbonate 28, BUN 11, creatinine 0.7. PHYSICAL EXAMINATION: GENERAL: Patient is a pleasant, elderly female who is confused. HEENT: Normocephalic, atraumatic. Moist mucous membranes. CARDIAC: Regular. S1, S2. PULMONARY: Bilateral clear. EXTREMITIES: No edema. ABDOMEN: Soft and nontender. Positive bowel sounds. ASSESSMENT AND PLAN: This is an 81-year-old female patient with underlying medical history of dyslipidemia, hypertension, Alzheimer's dementia, who was brought to the emergency room for acute on chronic encephalopathy, possibly secondary to urinary tract infection (UTI), with possible worsening dementia. PROBLEMS: 1. Metabolic encephalopathy, acute on chronic. Possibly secondary to urinary tract infection (UTI) versus worsening underlying dementia. Mental status improved. Continue medication. Patient completed antibiotics for treatment of urinary tract infection (UTI). Haldol as needed. Seroquel twice a day. Celexa has been discontinued. EKG is appreciated. QTC has been within tolerable limits. Urinary tract infection (UTI). Complete antibiotics. Culture positive for Escherichia (E) coli. 2. Dementia. Patient will likely need placement at a [facility] facility. Continue current medications, supportive care. 3. Hypertension. Continue losartan, atenolol. Monitor blood pressure. 4. Dyslipidemia. Continue statin. 5. Depression. Continue current medications. 6. Deep venous thrombosis (DVT) prophylaxis. Lovenox subcutaneously. DISPOSITION PLANNING: Pending placement.
[2016-12-04 06:00] VITALS: BP 133/68
[2016-12-04 08:06] LABS: EOS # 0.1 K/mm3 (0.0-0.50); EOS % 3.6 % (0.0-3.0); LARGE UNSTAINED CELL # 0.1 K/mm3 (0.0-0.4); LARGE UNSTAINED CELL % 2.9 % (0.0-4.0); LYMPH % 30.6 % (24.0-44.0); MEAN CORPUSCULAR HEMOGLOBIN 29.1 pg (27.0-33.0); MEAN CORPUSCULAR HGB CONC 32.7 g/dl (32.0-36.5); MEAN CORPUSCULAR VOLUME 89.1 fl (80.0-96.0); MONO # 0.3 K/mm3 (0.0-0.8); NEUTROPHILS # 1.5 K/mm3 (1.8-7.7); NEUTROPHILS % 52.9 % (36.0-66.0); PLATELET COUNT, AUTOMATED 281 k/mm3 (150-450); RED CELL DISTRIBUTION WIDTH 13.2 % (11.5-14.5); WHITE BLOOD COUNT 2.9 K/mm3 (4.0-10.0)
[2016-12-04 08:18] LABS: ANION GAP 8 MEQ/L (8-16); BLOOD UREA NITROGEN 8 MG/DL (7-18); CALCIUM LEVEL 8.5 MG/DL (8.8-10.2); CARBON DIOXIDE LEVEL 28 MEQ/L (21-32); CHLORIDE LEVEL 104 MEQ/L (98-107); CREATININE FOR GFR 0.75 MG/DL (0.55-1.02); GLOMERULAR FILTRATION RATE > 60.0 (>32); GLUCOSE, FASTING 91 MG/DL (83-110); MAGNESIUM LEVEL 2.1 MG/DL (1.8-2.4); POTASSIUM SERUM 3.6 MEQ/L (3.5-5.1); SODIUM LEVEL 140 MEQ/L (136-145)
[2016-12-04] MEDS: PRAVASTATIN 20 MG TAB PO SCH (08:28)
[2016-12-04] MEDS: ENOXAPARIN 30 MG/0.3 ML SYR (J1650) SC SCH (08:29)
[2016-12-04] MEDS: LOSARTAN 50 MG TAB PO SCH (08:29)
[2016-12-04] MEDS: ATENOLOL 25 MG TAB PO SCH (08:29)
[2016-12-04] MEDS: QUEtiapine FUMARATE 25 MG TAB PO SCH ×2 (08:29→20:16)
[2016-12-04] MEDS: CEPHALEXIN 500 MG CAP PO SCH (22:21)
[2016-12-05 06:00] VITALS: BP 145/72
[2016-12-05 06:15] LABS: MEAN CORPUSCULAR HEMOGLOBIN 29.6 pg (27.0-33.0); MEAN CORPUSCULAR HGB CONC 33.3 g/dl (32.0-36.5); MEAN CORPUSCULAR VOLUME 88.7 fl (80.0-96.0); RED CELL DISTRIBUTION WIDTH 13.2 % (11.5-14.5); WHITE BLOOD COUNT 2.4 K/mm3 (4.0-10.0)
[2016-12-05 06:23] LABS: ANION GAP 5 MEQ/L (8-16); BLOOD UREA NITROGEN 9 MG/DL (7-18); CARBON DIOXIDE LEVEL 29 MEQ/L (21-32); CHLORIDE LEVEL 106 MEQ/L (98-107); CREATININE FOR GFR 0.75 MG/DL (0.55-1.02); GLOMERULAR FILTRATION RATE > 60.0 (>32); GLUCOSE, FASTING 85 MG/DL (83-110); POTASSIUM SERUM 3.8 MEQ/L (3.5-5.1); SODIUM LEVEL 140 MEQ/L (136-145)
[2016-12-05] MEDS: CEPHALEXIN 500 MG CAP PO SCH ×2 (08:50→20:07)
[2016-12-05] MEDS: PRAVASTATIN 20 MG TAB PO SCH (08:50)
[2016-12-05] MEDS: QUEtiapine FUMARATE 25 MG TAB PO SCH ×2 (08:50→20:07)
[2016-12-05] MEDS: LOSARTAN 50 MG TAB PO SCH (08:51)
[2016-12-05] MEDS: ATENOLOL 25 MG TAB PO SCH (08:51)
[2016-12-05] MEDS: ENOXAPARIN 30 MG/0.3 ML SYR (J1650) SC SCH (08:52)
--- NOTE | 2016-12-06 03:35 | IPN ---
DATE: 12/05/2016 Patient seen and examined. He was febrile overnight. Patient remained mildly confused but pleasant. Denies any chest pain, pressure or discomfort. Denies any cough or shortness of breath. VITAL SIGNS: T-max 100.8, T-current 99.8, pulse 65, respirations 18, blood pressure 133/68, pulse oximetry 93% on room air. LABORATORY DATA: WBC 2.9, hemoglobin and hematocrit 13.5/41.4 and platelets 281. Chemistry: Sodium 140, potassium 3.6, chloride 104, bicarbonate 28, BUN 8, creatinine 0.75. C-reactive protein 0.57. Respiratory panel negative. UA mildly positive. PHYSICAL EXAMINATION: GENERAL: Patient pleasant, elderly, confused. HEENT: Normocephalic, atraumatic. CARDIAC: Regular rate and rhythm, normal S1, S2. PULMONARY: Bilaterally clear. ABDOMEN: Soft and nontender. EXTREMITIES: No edema. ASSESSMENT AND PLAN: This is an 81-year-old female patient with underlying medical history of dyslipidemia, hypertension, Alzheimer's dementia, who was brought to the emergency room for [id number] encephalopathy, possibly secondary to urinary tract infection (UTI), with possible worsening dementia. 1. Metabolic encephalopathy, [id number]. Possibly secondary to urinary tract infection (UTI) versus worsening underlying dementia. Mental status improved. Patient completed antibiotics for UTI. Haldol as needed. Seroquel twice a day. Celexa has been discontinued. EKG is appreciated. QTC within tolerable limits. Culture positive for Escherichia (E) coli. 2. Fever during the hospital course secondary to recurrence of UTI. Patient restarted on Keflex. Blood cultures were sent. No respiratory symptoms. We will continue to monitor. 3. Dementia. Patient will likely need placement at a [facility] facility. Continue medications mentioned above. 4. Hypertension. Continue losartan, atenolol. Monitor blood pressure. 5. Dyslipidemia. Continue statin. 6. Depression. Continue current medications. 7. Deep venous thrombosis (DVT) prophylaxis. Lovenox subcutaneously. DISPOSITION: Pending placement.
[2016-12-06 06:00] VITALS: BP 136/70
[2016-12-06] MEDS: PRAVASTATIN 20 MG TAB PO SCH (08:10)
[2016-12-06] MEDS: CEPHALEXIN 500 MG CAP PO SCH ×2 (08:10→22:05)
[2016-12-06] MEDS: ENOXAPARIN 30 MG/0.3 ML SYR (J1650) SC SCH (08:11)
[2016-12-06] MEDS: LOSARTAN 50 MG TAB PO SCH (08:11)
[2016-12-06] MEDS: QUEtiapine FUMARATE 25 MG TAB PO SCH ×2 (08:11→22:06)
[2016-12-06] MEDS: ATENOLOL 25 MG TAB PO SCH (08:13)
[2016-12-06] MEDS: HALOPERIDOL 0.5 MG TAB PO PRN (22:58)
[2016-12-07 06:00] VITALS: BP 118/68
[2016-12-07 06:27] LABS: MEAN CORPUSCULAR HEMOGLOBIN 29.3 pg (27.0-33.0); MEAN CORPUSCULAR HGB CONC 33.4 g/dl (32.0-36.5); MEAN CORPUSCULAR VOLUME 87.7 fl (80.0-96.0); RED CELL DISTRIBUTION WIDTH 13.1 % (11.5-14.5)
[2016-12-07 06:39] LABS: ANION GAP 8 MEQ/L (8-16); BLOOD UREA NITROGEN 10 MG/DL (7-18); CALCIUM LEVEL 8.1 MG/DL (8.8-10.2); CARBON DIOXIDE LEVEL 26 MEQ/L (21-32); CHLORIDE LEVEL 106 MEQ/L (98-107); CREATININE FOR GFR 0.57 MG/DL (0.55-1.02); GLOMERULAR FILTRATION RATE > 60.0 (>32); GLUCOSE, FASTING 86 MG/DL (83-110); MAGNESIUM LEVEL 2.1 MG/DL (1.8-2.4); POTASSIUM SERUM 3.3 MEQ/L (3.5-5.1); SODIUM LEVEL 140 MEQ/L (136-145)
[2016-12-07] MEDS: PRAVASTATIN 20 MG TAB PO SCH ×2 (08:50→09:00)
[2016-12-07] MEDS: QUEtiapine FUMARATE 25 MG TAB PO SCH ×3 (08:50→20:49)
[2016-12-07] MEDS: LOSARTAN 50 MG TAB PO SCH ×2 (08:51→09:00)
[2016-12-07] MEDS: ATENOLOL 25 MG TAB PO SCH ×2 (08:51→09:00)
[2016-12-07] MEDS: CEPHALEXIN 500 MG CAP PO SCH ×3 (08:52→20:49)
[2016-12-07] MEDS ORDERED: POTASSIUM CHLORIDE 10 MEQ SR TABLET PO ONE (12:15)
[2016-12-07] MEDS: ENOXAPARIN 40 MG/0.4 ML SYRINGE (J1650) SC SCH (15:23)
[2016-12-07] MEDS: HALOPERIDOL 0.5 MG TAB PO PRN (22:20)
[2016-12-08 06:00] VITALS: BP 150/75
[2016-12-08] MEDS: LOSARTAN 50 MG TAB PO SCH (09:38)
[2016-12-08] MEDS: QUEtiapine FUMARATE 25 MG TAB PO SCH ×2 (09:38→20:11)
[2016-12-08] MEDS: PRAVASTATIN 20 MG TAB PO SCH (09:38)
[2016-12-08] MEDS: ATENOLOL 25 MG TAB PO SCH (09:39)
[2016-12-08] MEDS: CEPHALEXIN 500 MG CAP PO SCH ×2 (09:39→20:11)
[2016-12-08] MEDS: ENOXAPARIN 40 MG/0.4 ML SYRINGE (J1650) SC SCH (09:39)
[2016-12-08] MEDS ORDERED: CEPH500C PO (14:34)
[2016-12-08] MEDS ORDERED: QUET1TAB7 PO (14:34)
[2016-12-09 06:15] LABS: MEAN CORPUSCULAR HEMOGLOBIN 28.7 pg (27.0-33.0); MEAN CORPUSCULAR HGB CONC 32.7 g/dl (32.0-36.5); MEAN CORPUSCULAR VOLUME 87.6 fl (80.0-96.0); RED CELL DISTRIBUTION WIDTH 13.2 % (11.5-14.5); WHITE BLOOD COUNT 2.5 K/mm3 (4.0-10.0)
[2016-12-09 06:35] LABS: ANION GAP 8 MEQ/L (8-16); BLOOD UREA NITROGEN 8 MG/DL (7-18); CARBON DIOXIDE LEVEL 28 MEQ/L (21-32); CHLORIDE LEVEL 105 MEQ/L (98-107); CREATININE FOR GFR 0.68 MG/DL (0.55-1.02); GLOMERULAR FILTRATION RATE > 60.0 (>32); GLUCOSE, FASTING 89 MG/DL (83-110); POTASSIUM SERUM 3.6 MEQ/L (3.5-5.1); SODIUM LEVEL 141 MEQ/L (136-145)
[2016-12-09 09:00] VITALS: BP 102/54
[2016-12-09] MEDS: LOSARTAN 50 MG TAB PO SCH (09:00)
[2016-12-09] MEDS: ATENOLOL 25 MG TAB PO SCH (09:00)
[2016-12-09] MEDS: QUEtiapine FUMARATE 25 MG TAB PO SCH (09:10)
[2016-12-09] MEDS: PRAVASTATIN 20 MG TAB PO SCH (09:10)
[2016-12-09] MEDS: ENOXAPARIN 40 MG/0.4 ML SYRINGE (J1650) SC SCH (09:10)
[2016-12-09] MEDS: CEPHALEXIN 500 MG CAP PO SCH (09:10)
--- NOTE | 2016-12-09 11:19 | DSES ---
DATE OF ADMISSION: 11/23/2016 DATE OF DISCHARGE: 12/09/2016 DISCHARGE DIAGNOSES: Acute on chronic metabolic encephalopathy. Urinary tract infection. Dementia. Hypertension. Dyslipidemia. Depression. HOSPITAL COURSE: The patient is an 81-year-old female with underlying medical history of dyslipidemia, hypertension, Alzheimer's dementia who was brought in to the emergency room for acute on chronic encephalopathy, likely secondary to urinary tract infection. The patient's sister was unable to care for her at home. She was admitted to the medical service. She was treated with by mouth antibiotics and her symptoms greatly improved. She was made alternate level of care. While she was awaiting placement, she developed a fever. Repeat urine cultures were completed. Her initial culture grew pansensitive E. Coli. She was started once again back on cephalosporin by mouth. Repeat culture actually grew pseudomonas, sensitive to ceftazidime. The patient had been on cephalexin and she had improved without any further fevers. At this time her febrile illness has completely resolved. She is doing well. She has no complaints. SUBJECTIVE: This morning, the patient reports she feels well. She is oriented to person, but not to place, time or to situation. OBJECTIVE: VITAL SIGNS: Temperature 97.8, pulse 75, respiratory rate 16, blood pressure 150/75, O2 saturation 95% on room air. GENERAL: She is a very pleasant elderly female up ambulating around her room folding bed sheets. She does not appear to be in any acute distress. HEENT: Cranial nerves II through XII are grossly intact. She has moist mucous membranes. No elevation of CVP. CARDIOVASCULAR: S1, S2, regular rate. RESPIRATORY: Clear. ABDOMEN: Benign. EXTREMITIES: No clubbing, cyanosis or edema. LABORATORY STUDIES: (From yesterday): WBC 2.0, hemoglobin 12.5, hematocrit 37.4, platelet count 211. Chemistry panel: Sodium 140, potassium 3.3, chloride 106, bicarbonate 26, BUN 10, creatinine 0.5. Urine cultures as outlined above. Blood cultures were all negative. Respiratory and lipid panels, and swabs were negative. The patient had a CT of the head which did not reveal any etiology for encephalopathy. ASSESSMENT AND PLAN: This is an 81-year-old female with acute on chronic metabolic encephalopathy, acute on chronic, secondary to urinary tract infection. PROBLEM LIST: 1. Metabolic encephalopathy, acute on chronic. The patient was worse than her baseline at the time of her presentation. She has advanced dementia at her baseline. She is improved back to what is her baseline with treatment of her urinary tract infection. Her sister who is also elderly, is unable to care for her at home. At this time the patient is being placed into a detention facility. She was on Haldol prior to admission. She has been started on Seroquel since being here. Her acuity has been within appropriate limits. 2. Fever. The patient did have a fever spike after completing treatment for UTI. She was restarted on antibiotics for UTI. At this time she is completing a course of antibiotics. Will continue for an additional four days. Will monitor for any recurrent symptoms. 3. Hypertension. She is continued on Losartan and atenolol. Blood pressure is controlled. 4. Dyslipidemia. She is on a statin. Could revisit the utility of this given her advanced age and advanced dementia. 5. Deep venous thrombosis (DVT) prophylaxis. She is on Lovenox. DISPOSITION: The patient is being discharged to detention facility. She is to follow with her primary care provider in 7 days. Her diet is 2 grams sodium, Ensure Enlive once daily. Her activity is as prior to admission. She is to return to the ER if her symptoms worsen. MEDICATIONS AT THE TME OF DISCHARGE: - Cephalexin 500 mg every 12 hours for four days - Seroquel 25 mg twice a day - atenolol 25 mg daily - vitamin D 50,000 units every two weeks - Haldol 0.5 mg daily - Losartan 100 mg daily - potassium chloride 20 mEq daily - pravastatin 40 mg daily - PreserVision Areds 2 capsules daily Greater than 30 minutes spent organizing disposition.
--- NOTE | 2016-12-10 12:00 | DSES ---
DATE OF ADMISSION: 11/23/2016 DATE OF DISCHARGE: 12/09/2016 ADDENDUM: Date: 12/09/2016 Please see discharge summary dictated 12/08/2016 for full details. The patient remained in the hospital overnight awaiting transfer. She was discharged 12/09/2016 without any change in her clinical status.
== END 2016-12-09 10:24 | DRG 689 ==
LOC: M ED 18:19 → M ED INP 22:38 → M MSPAV 11-24 01:51
PROVIDERS: ADMIT Internal Medicine; ATTEND Internal Medicine
DX: N39.0 Urinary tract infection, site not specified (principal); G93.40 Encephalopathy, unspecified; J90 Pleural effusion, not elsewhere classified; B96.20 Unspecified Escherichia coli [E. coli] as the cause of diseases classified elsewhere; F02.80 Dementia in other diseases classified elsewhere, unspecified severity, without behavioral disturbance, psychotic disturbance, mood disturbance, and anxiety; I10 Essential (primary) hypertension; E78.5 Hyperlipidemia, unspecified; F32.9 Major depressive disorder, single episode, unspecified; G30.9 Alzheimer's disease, unspecified

== ENCOUNTER → 2017-04-11 | Outpatient (REF) | payer MEDICARE, MEDICAID ==
[~2017-04-11] MED LIST changes: +CEPH500C PO; +HALO0.5H PO; -HALO05TA PO; +QUET1TAB7 PO; +VITA1CAP40 PO; -VITA50003 PO
[2017-04-11 11:04] LABS: CALCIUM OXALATE CRYSTALS SMALL
== END ==
LOC: SKLAB8 08:53
PROVIDERS: ATTEND Family Medicine
DX: R46.89 Other symptoms and signs involving appearance and behavior (principal); Z79.899 Other long term (current) drug therapy

== ENCOUNTER → 2017-06-10 | Outpatient (REF) | payer MEDICARE, MEDICAID | LOC: SKLAB8 14:07 | PROVIDERS: ATTEND Family Medicine | DX: R41.82 Altered mental status, unspecified (principal) ==

== ENCOUNTER → 2017-06-12 | Outpatient (REF) | payer MEDICARE, MEDICAID ==
[2017-06-12 08:58] LABS: ANION GAP 9 MEQ/L (8-16); BLOOD UREA NITROGEN 23 MG/DL (7-18); CALCIUM LEVEL 7.9 MG/DL (8.8-10.2); CARBON DIOXIDE LEVEL 27 MEQ/L (21-32); CHLORIDE LEVEL 108 MEQ/L (98-107); CREATININE FOR GFR 0.64 MG/DL (0.55-1.02); GLOMERULAR FILTRATION RATE > 60.0 (>32); GLUCOSE, FASTING 82 MG/DL (83-110); POTASSIUM SERUM 4.3 MEQ/L (3.5-5.1); SODIUM LEVEL 144 MEQ/L (136-145)
== END ==
LOC: SKLAB8 08:00
PROVIDERS: ATTEND Family Medicine
DX: Z79.2 Long term (current) use of antibiotics (principal)

== ENCOUNTER → 2017-11-10 | Outpatient (REF) | payer MEDICARE, MEDICAID | LOC: SKLAB8 13:00 | DX: J12.1 Respiratory syncytial virus pneumonia (principal) | CPT/HCPCS: 87633 ==

== ENCOUNTER → 2017-11-30 | Outpatient (REF) | payer MEDICARE, MEDICAID ==
[2017-11-30 09:47] LABS: ALBUMIN 3.9 GM/DL (3.2-5.2); ALBUMIN/GLOBULIN RATIO 1.11 (1.00-1.93); ALKALINE PHOSPHATASE 60 U/L (45-117); ALT/SGPT 25 U/L (12-78); ANION GAP 8 MEQ/L (8-16); AST/SGOT 19 U/L (7-37); BILIRUBIN,TOTAL 0.5 MG/DL (0.2-1.0); BLOOD UREA NITROGEN 23 MG/DL (7-18); CALCIUM LEVEL 8.9 MG/DL (8.8-10.2); CARBON DIOXIDE LEVEL 28 MEQ/L (21-32); CHLORIDE LEVEL 107 MEQ/L (98-107); CREATININE FOR GFR 0.56 MG/DL (0.55-1.30); GLOMERULAR FILTRATION RATE > 60.0 (>32); GLUCOSE, FASTING 93 MG/DL (70-100); POTASSIUM SERUM 3.9 MEQ/L (3.5-5.1); SODIUM LEVEL 143 MEQ/L (136-145); TOTAL PROTEIN 7.4 GM/DL (6.4-8.2)
== END ==
LOC: SKLAB8 08:00
DX: I10 Essential (primary) hypertension (principal)
CPT/HCPCS: 80053

== ENCOUNTER → 2018-05-31 | Outpatient (REF) | payer MEDICARE, MEDICAID ==
[2018-05-31 09:27] LABS: ALBUMIN 3.6 GM/DL (3.2-5.2); ALBUMIN/GLOBULIN RATIO 1.09 (1.00-1.93); ALKALINE PHOSPHATASE 76 U/L (45-117); ALT/SGPT 26 U/L (12-78); ANION GAP 7 MEQ/L (8-16); AST/SGOT 19 U/L (7-37); BILIRUBIN,TOTAL 0.3 MG/DL (0.2-1.0); BLOOD UREA NITROGEN 25 MG/DL (7-18); CALCIUM LEVEL 8.7 MG/DL (8.8-10.2); CARBON DIOXIDE LEVEL 28 MEQ/L (21-32); CHLORIDE LEVEL 108 MEQ/L (98-107); CREATININE FOR GFR 0.68 MG/DL (0.55-1.30); GLOMERULAR FILTRATION RATE > 60.0 (>32); GLUCOSE, FASTING 76 MG/DL (70-100); POTASSIUM SERUM 4.2 MEQ/L (3.5-5.1); SODIUM LEVEL 143 MEQ/L (136-145); TOTAL PROTEIN 6.9 GM/DL (6.4-8.2)
== END ==
LOC: SKLAB8 08:00
DX: I10 Essential (primary) hypertension (principal)
CPT/HCPCS: 80053

== ENCOUNTER → 2018-08-24 | Outpatient (REF) ==
[2018-08-25 00:27] LABS: APPEARANCE, URINE HAZY (CLEAR); BACTERIA, URINE AUTO 3+ (NEGATIVE); BILIRUBIN, URINE AUTO NEGATIVE (NEGATIVE); BLOOD, URINE BLOOD 1+ (NEGATIVE); COLOR, URINE YELLOW (YELLOW); GLUCOSE, URINE (UA) AUTO NEGATIVE (NEGATIVE); KETONE, URINE AUTO NEGATIVE (NEGATIVE); LEUKOCYTE ESTERASE, URINE AUTO 3+ (NEGATIVE); MUCUS, URINE SMALL (NEGATIVE); NITRITE, URINE AUTO NEGATIVE (NEGATIVE); PROTEIN, URINE AUTO NEGATIVE (NEGATIVE); RBC, URINE AUTO 1 /HPF (0-3); SPECIFIC GRAVITY URINE AUTO 1.006 (1.002-1.035); SQUAMOUS EPITHELIAL CELL UR AU 0 /HPF (0-6); UROBILINOGEN, URINE AUTO 0.2 mg/dL (0.0-2.0); WBC, URINE AUTO 26 /HPF (0-3)
== END ==
LOC: SKLAB8 21:30
DX: D64.9 Anemia, unspecified (principal)

== ENCOUNTER → 2018-09-09 | Outpatient (REF) | payer MEDICARE, MEDICAID ==
[2018-09-09 15:38] LABS: BASO % 0.2 % (0.0-1.0); EOS % 0.4 % (0.0-3.0); HEMATOCRIT 38.9 % (36.0-47.0); HEMOGLOBIN 12.7 g/dl (12.0-15.5); IMMATURE GRANULOCYTE % 0.5 % (0-3.0); LYMPH # 0.9 10^3/uL (1.5-4.5); LYMPH % 8.3 % (24.0-44.0); MEAN CORPUSCULAR HEMOGLOBIN 28.3 pg (27.0-33.0); MEAN CORPUSCULAR HGB CONC 32.6 g/dl (32.0-36.5); MEAN CORPUSCULAR VOLUME 86.8 fl (80.0-96.0); MONO # 0.6 10^3/uL (0.0-0.8); MONO % 5.7 % (0.0-5.0); NEUTROPHILS # 8.8 10^3/uL (1.8-7.7); NEUTROPHILS % 84.9 % (36.0-66.0); PLATELET COUNT, AUTOMATED 198 10^3/uL (150-450); RED BLOOD COUNT 4.48 10^6/uL (4.00-5.40); RED CELL DISTRIBUTION WIDTH 14.4 % (11.5-14.5); WHITE BLOOD COUNT 10.4 10^3/uL (4.0-10.0)
[2018-09-09 16:03] LABS: ANION GAP 7 MEQ/L (8-16); BLOOD UREA NITROGEN 25 MG/DL (7-18); CALCIUM LEVEL 8.7 MG/DL (8.8-10.2); CARBON DIOXIDE LEVEL 25 MEQ/L (21-32); CHLORIDE LEVEL 105 MEQ/L (98-107); CREATININE FOR GFR 0.85 MG/DL (0.55-1.30); GLOMERULAR FILTRATION RATE > 60.0 (>32); GLUCOSE, FASTING 160 MG/DL (70-100); POTASSIUM SERUM 3.7 MEQ/L (3.5-5.1); SODIUM LEVEL 137 MEQ/L (136-145)
== END ==
LOC: SKLAB8 13:43
DX: R06.9 Unspecified abnormalities of breathing (principal)
CPT/HCPCS: 71045

== ENCOUNTER → 2018-09-17 | Outpatient (REF) | payer MEDICARE, MEDICAID ==
[2018-09-17 09:27] LABS: BASO # 0.1 10^3/uL (0.0-0.2); BASO % 0.7 % (0.0-1.0); EOS # 0.2 10^3/uL (0.0-0.50); EOS % 2.8 % (0.0-3.0); HEMATOCRIT 43.4 % (36.0-47.0); HEMOGLOBIN 13.8 g/dl (12.0-15.5); IMMATURE GRANULOCYTE % 0.4 % (0-3.0); LYMPH # 1.5 10^3/uL (1.5-4.5); LYMPH % 21.2 % (24.0-44.0); MEAN CORPUSCULAR HEMOGLOBIN 27.5 pg (27.0-33.0); MEAN CORPUSCULAR HGB CONC 31.8 g/dl (32.0-36.5); MEAN CORPUSCULAR VOLUME 86.5 fl (80.0-96.0); MONO # 0.4 10^3/uL (0.0-0.8); MONO % 5.4 % (0.0-5.0); NEUTROPHILS # 4.9 10^3/uL (1.8-7.7); NEUTROPHILS % 69.5 % (36.0-66.0); PLATELET COUNT, AUTOMATED 316 10^3/uL (150-450); RED BLOOD COUNT 5.02 10^6/uL (4.00-5.40); RED CELL DISTRIBUTION WIDTH 14.1 % (11.5-14.5)
[2018-09-17 09:49] LABS: ANION GAP 7 MEQ/L (8-16); BLOOD UREA NITROGEN 21 MG/DL (7-18); CALCIUM LEVEL 8.8 MG/DL (8.8-10.2); CARBON DIOXIDE LEVEL 26 MEQ/L (21-32); CHLORIDE LEVEL 104 MEQ/L (98-107); CREATININE FOR GFR 0.86 MG/DL (0.55-1.30); GLOMERULAR FILTRATION RATE > 60.0 (>32); GLUCOSE, FASTING 115 MG/DL (70-100); POTASSIUM SERUM 4.2 MEQ/L (3.5-5.1); SODIUM LEVEL 137 MEQ/L (136-145)
== END ==
LOC: SKLAB8 08:37
DX: R05 Cough (principal); I51.7 Cardiomegaly; I48.91 Unspecified atrial fibrillation
CPT/HCPCS: 71045

== ENCOUNTER → 2018-09-21 | Outpatient (REF) | payer MEDICARE, MEDICAID | LOC: SKLAB8 10:00 | DX: I48.91 Unspecified atrial fibrillation (principal); R06.02 Shortness of breath | CPT/HCPCS: 71045 ==

== ENCOUNTER 2018-09-23 00:28 | Emergency (ER) | payer MEDICARE, MEDICAID ==
[2018-09-23] MEDS: IPRATROPIUM 0.5MG/ALBUTEROL 2.5MG INH SOL UD 3ML (DUONEB)(J7620) NEB (01:04)
[2018-09-23] MEDS: methylPREDNISolone INJ 125 MG/2 ML VIAL (J2930) IM (01:10)
== END 2018-09-23 01:25 | disposition home or self-care (01) ==
LOC: M ED 00:28
DX: J40 Bronchitis, not specified as acute or chronic (principal); Z79.899 Other long term (current) drug therapy; Z88.8 Allergy status to other drugs, medicaments and biological substances
CPT/HCPCS: J2930

== ENCOUNTER → 2018-09-24 | Outpatient (CLI) | payer MEDICARE, MEDICAID ==
[2018-09-24 08:21] LABS: BASO % 0.2 % (0.0-1.0); EOS % 0.5 % (0.0-3.0); HEMATOCRIT 37.7 % (36.0-47.0); HEMOGLOBIN 12.1 g/dl (12.0-15.5); IMMATURE GRANULOCYTE % 0.2 % (0-3.0); LYMPH # 2.1 10^3/uL (1.5-4.5); LYMPH % 25.3 % (24.0-44.0); MEAN CORPUSCULAR HEMOGLOBIN 27.7 pg (27.0-33.0); MEAN CORPUSCULAR HGB CONC 32.1 g/dl (32.0-36.5); MEAN CORPUSCULAR VOLUME 86.3 fl (80.0-96.0); MONO # 0.4 10^3/uL (0.0-0.8); MONO % 4.9 % (0.0-5.0); NEUTROPHILS # 5.6 10^3/uL (1.8-7.7); NEUTROPHILS % 68.9 % (36.0-66.0); PLATELET COUNT, AUTOMATED 283 10^3/uL (150-450); RED BLOOD COUNT 4.37 10^6/uL (4.00-5.40); RED CELL DISTRIBUTION WIDTH 14.8 % (11.5-14.5); WHITE BLOOD COUNT 8.2 10^3/uL (4.0-10.0)
[2018-09-24 08:47] LABS: ANION GAP 7 MEQ/L (8-16); BLOOD UREA NITROGEN 27 MG/DL (7-18); CALCIUM LEVEL 8.8 MG/DL (8.8-10.2); CARBON DIOXIDE LEVEL 25 MEQ/L (21-32); CHLORIDE LEVEL 107 MEQ/L (98-107); CREATININE FOR GFR 0.75 MG/DL (0.55-1.30); GLOMERULAR FILTRATION RATE > 60.0 (>32); GLUCOSE, FASTING 102 MG/DL (70-100); SODIUM LEVEL 139 MEQ/L (136-145)
== END ==
LOC: SKLAB8 00:18
DX: R06.9 Unspecified abnormalities of breathing (principal)
CPT/HCPCS: 80048

== ENCOUNTER → 2018-12-06 | Outpatient (REF) | payer MEDICARE, MEDICAID ==
[~2018-12-06] MED LIST changes: +KLOR10TA76 PO; -LOSA100T36 PO; +LOSA100T50 PO; -POTA10CA PO; -VITA1CAP40 PO; +VITA50005 PO
== END ==
LOC: SKLAB8 07:00
PROVIDERS: ATTEND Family Medicine
DX: Z53.9 Procedure and treatment not carried out, unspecified reason (principal)

== ENCOUNTER → 2019-05-30 | Outpatient (REF) | payer MEDICARE | LOC: SKLAB8 07:00 | PROVIDERS: ATTEND Family Medicine | DX: R53.83 Other fatigue (principal); R50.9 Fever, unspecified; I10 Essential (primary) hypertension ==

== ENCOUNTER → 2019-06-11 | Outpatient (REF) | payer MEDICARE ==
[2019-06-11 15:39] LABS: INFLUENZA A AMPLIFICATION NEGATIVE (NEGATIVE); INFLUENZA B AMPLIFICATION NEGATIVE (NEGATIVE)
--- NOTE | 2019-06-11 18:18 | REP ---
AP PORTABLE CHEST: 06/11/2019. Comparison: 09/21/2018. Clinical history: Dyspnea. Findings: Heart has left ventricular configuration and some left atrial enlargement as before. There is vascular redistribution and some interstitial edema with alveolar opacities suggesting edema or infiltrates. These could certainly obscure nodules. I do not see blunting of the CP angles that would clearly define a large effusion. A tortuous calcified aorta is again noted and unchanged. There is an old healed fracture of the right humerus, unchanged from last year. The bones were demineralized. Impression: 1. Some cardiomegaly with left atrial and ventricular enlargement as well as pulmonary edema. The alveolar opacities may be alveolar edema, infiltrates or a combination thereof. They could obscure nodules. No gross effusion. Electronically Signed by Cong Morelos MD 06/11/2019 07:47 P
== END ==
LOC: SKLAB8 13:00
PROVIDERS: ATTEND Family Medicine
DX: R50.9 Fever, unspecified (principal); R06.00 Dyspnea, unspecified

== ENCOUNTER → 2019-06-12 | Outpatient (REF) | payer MEDICARE | LOC: SKLAB8 14:01 | PROVIDERS: ATTEND Family Medicine | DX: R53.83 Other fatigue (principal); R50.9 Fever, unspecified ==

== ENCOUNTER → 2019-10-17 | Outpatient (REF) | payer MEDICARE, MEDICAID ==
[2019-10-17 09:26] LABS: HEMOGLOBIN 12.8 g/dl (12.0-15.5); MEAN CORPUSCULAR HEMOGLOBIN 28.1 pg (27.0-33.0); MEAN CORPUSCULAR VOLUME 87.9 fl (80.0-96.0); PLATELET COUNT, AUTOMATED 226 10^3/uL (150-450); RED BLOOD COUNT 4.55 10^6/uL (4.00-5.40); WHITE BLOOD COUNT 4.7 10^3/uL (4.0-10.0)
[2019-10-17 10:06] LABS: ALBUMIN 3.8 GM/DL (3.2-5.2); ALT/SGPT 38 U/L (12-78); BILIRUBIN,TOTAL 0.5 MG/DL (0.2-1.0); BLOOD UREA NITROGEN 26 MG/DL (7-18); CALCIUM LEVEL 9.1 MG/DL (8.8-10.2); CARBON DIOXIDE LEVEL 25 MEQ/L (21-32); CHLORIDE LEVEL 105 MEQ/L (98-107); CREATININE FOR GFR 0.67 MG/DL (0.55-1.30); GLOMERULAR FILTRATION RATE > 60.0 (>32); GLUCOSE, FASTING 86 MG/DL (70-100); POTASSIUM SERUM 4.1 MEQ/L (3.5-5.1); SODIUM LEVEL 139 MEQ/L (136-145); TOTAL PROTEIN 7.3 GM/DL (6.4-8.2)
== END ==
LOC: SKLAB8 07:00
PROVIDERS: ATTEND Family Medicine
DX: E78.00 Pure hypercholesterolemia, unspecified (principal)

== ENCOUNTER → 2019-12-30 | Outpatient (REF) | payer MEDICARE, MEDICAID ==
[2019-12-31 00:04] LABS: INFLUENZA A AMPLIFICATION NEGATIVE (NEGATIVE); INFLUENZA B AMPLIFICATION NEGATIVE (NEGATIVE)
== END ==
LOC: SKLAB8 22:57
PROVIDERS: ATTEND Family Medicine
DX: R50.9 Fever, unspecified (principal); R05 Cough

== ENCOUNTER → 2020-01-28 | Outpatient (REF) | payer MEDICARE, MEDICAID ==
--- NOTE | 2020-01-28 01:17 | REPVR ---
PROCEDURE INFORMATION: Exam: XR Abdomen, 1 View Exam date and time: 01/28/2020 1:03 AM Age: 84 years old Clinical indication: Other: Hypoxia TECHNIQUE: Imaging protocol: XR of the abdomen. Views: Frontal supine view of the abdomen. 1 View. COMPARISON: No relevant prior studies available. FINDINGS: Gastrointestinal tract: Gaseous distension of transverse colon. Vasculature: Atherosclerotic disease. Bones/joints: Mild levoscoliosis. Osteopenia. IMPRESSION: Gaseous distension of transverse colon. Electronically signed by: Jann Bergman On 01/28/2020 01:16:53 AM
--- NOTE | 2020-01-28 01:18 | REPVR ---
PROCEDURE INFORMATION: Exam: XR Chest, 1 View Exam date and time: 01/28/2020 1:03 AM Age: 84 years old Clinical indication: Other: Hypoxia TECHNIQUE: Imaging protocol: XR of the chest Views: 1 view. COMPARISON: CR Chest, 1 view 06/11/2019 3:59 PM FINDINGS: Lungs: Nonspecific right perihilar ground-glass and reticulonodular opacities. Pleural space: Unremarkable. No pleural effusion. No pneumothorax. Heart/Mediastinum: Cardiomegaly. Vasculature: Atherosclerotic disease. Bones/joints: Osteopenia. IMPRESSION: Nonspecific right perihilar ground-glass and reticulonodular opacities. Electronically signed by: Jann Bergman On 01/28/2020 01:17:37 AM
[2020-01-28 04:25] LABS: AMORPHOUS SEDIMENT SMALL (NEGATIVE); APPEARANCE, URINE CLOUDY (CLEAR); BACTERIA, URINE AUTO 3+ (NEGATIVE); BILIRUBIN, URINE AUTO NEGATIVE (NEGATIVE); BLOOD, URINE BLOOD 2+ (NEGATIVE); COLOR, URINE AMBER (YELLOW); GLUCOSE, URINE (UA) AUTO NEGATIVE (NEGATIVE); KETONE, URINE AUTO TRACE mg/dL (NEGATIVE); LEUKOCYTE ESTERASE, URINE AUTO 1+ (NEGATIVE); MUCUS, URINE SMALL (NEGATIVE); NITRITE, URINE AUTO POSITIVE (NEGATIVE); PROTEIN, URINE AUTO 1+ mg/dL (NEGATIVE); RBC, URINE AUTO 40 /HPF (0-3); SPECIFIC GRAVITY URINE AUTO 1.019 (1.002-1.035); SQUAMOUS EPITHELIAL CELL UR AU 2 /HPF (0-6); TRANSITIONAL EPITHELIAL AUTO 1 /HPF; WBC, URINE AUTO TNTC /HPF (0-3)
[2020-01-28 13:38] LABS: HEMOGLOBIN 14.1 g/dl (12.0-15.5); MEAN CORPUSCULAR HEMOGLOBIN 27.3 pg (27.0-33.0); MEAN CORPUSCULAR HGB CONC 31.3 g/dl (32.0-36.5); MEAN CORPUSCULAR VOLUME 87.2 fl (80.0-96.0); PLATELET COUNT, AUTOMATED 207 10^3/uL (150-450); RED BLOOD COUNT 5.16 10^6/uL (4.00-5.40); WHITE BLOOD COUNT 12.2 10^3/uL (4.0-10.0)
[2020-01-28 14:08] LABS: ALBUMIN 3.5 GM/DL (3.2-5.2); BILIRUBIN,TOTAL 1.5 MG/DL (0.2-1.0); CALCIUM LEVEL 8.9 MG/DL (8.8-10.2); CREATININE FOR GFR 1.36 MG/DL (0.55-1.30); GLOMERULAR FILTRATION RATE 39.2 (>32); TOTAL PROTEIN 7.6 GM/DL (6.4-8.2)
== END ==
LOC: SKLAB8 00:02
PROVIDERS: ATTEND Family Medicine
DX: R09.02 Hypoxemia (principal); Z79.899 Other long term (current) drug therapy

== ENCOUNTER → 2020-01-28 | Outpatient (REF) | payer MEDICARE, MEDICAID | LOC: SKLAB8 07:00 | PROVIDERS: ATTEND Family Medicine | DX: R53.83 Other fatigue (principal) ==

== ENCOUNTER → 2020-01-29 | Outpatient (REF) | payer MEDICARE ==
[2020-01-29 10:36] LABS: HEMATOCRIT 44.1 % (36.0-47.0); HEMOGLOBIN 13.9 g/dl (12.0-15.5); MEAN CORPUSCULAR HEMOGLOBIN 27.4 pg (27.0-33.0); MEAN CORPUSCULAR HGB CONC 31.5 g/dl (32.0-36.5); MEAN CORPUSCULAR VOLUME 86.8 fl (80.0-96.0); PLATELET COUNT, AUTOMATED 189 10^3/uL (150-450); RED BLOOD COUNT 5.08 10^6/uL (4.00-5.40); WHITE BLOOD COUNT 10.1 10^3/uL (4.0-10.0)
[2020-01-29 11:16] LABS: ALBUMIN 3.3 GM/DL (3.2-5.2); BILIRUBIN,TOTAL 0.8 MG/DL (0.2-1.0); CALCIUM LEVEL 8.5 MG/DL (8.8-10.2); CREATININE FOR GFR 1.21 MG/DL (0.55-1.30); GLOMERULAR FILTRATION RATE 44.9 (>32); POTASSIUM SERUM 3.7 MEQ/L (3.5-5.1); TOTAL PROTEIN 7.2 GM/DL (6.4-8.2)
== END ==
LOC: SKLAB8 10:00
PROVIDERS: ATTEND Family Medicine
DX: I10 Essential (primary) hypertension (principal)

== ENCOUNTER → 2020-08-06 | Outpatient (REF) | payer MEDICARE, MEDICAID ==
--- NOTE | 2020-08-06 15:13 | REPVR ---
PROCEDURE INFORMATION: Exam: XR Left Hand Exam date and time: 08/06/2020 2:57 PM Age: 84 years old Clinical indication: Pain; Finger(s); Left; Additional info: Pain brusing left hand ring finger TECHNIQUE: Imaging protocol: XR Left hand. Views: 3 or more views. COMPARISON: No relevant prior studies available. FINDINGS: Bones/joints: There is an acute longitudinal oblique fracture of the distal shaft of the proximal phalanx of left ring finger 4. The fracture is only minimally displaced on image 1003. Mild osteopenia is present in the wrist and hand. Soft tissues: Normal. IMPRESSION: 1. There is an acute longitudinal oblique fracture of the distal shaft of the proximal phalanx of left ring finger 4. The fracture is only minimally displaced on image 1003. 2. Mild osteopenia. Electronically signed by: Ruben Payton On 08/06/2020 15:13:18 PM
== END ==
LOC: SKLAB8 13:00
DX: S62.611A Displaced fracture of proximal phalanx of left index finger, initial encounter for closed fracture (principal); M85.88 Other specified disorders of bone density and structure, other site; X58.XXXA Exposure to other specified factors, initial encounter; Y92.9 Unspecified place or not applicable

== ENCOUNTER → 2020-09-09 | Outpatient (REF) | payer MEDICARE, MEDICAID ==
[~2020-09-09] MED LIST changes: -QUET1TAB7 PO; +QUET25TA3 PO
[2020-09-09 10:15] LABS: INFLUENZA A AMPLIFICATION NEGATIVE (NEGATIVE); INFLUENZA B AMPLIFICATION NEGATIVE (NEGATIVE)
== END ==
LOC: SKLAB8 09-01 14:13 → EDSTATUS 09-16 09:12 → SKLAB8 09-16 10:00
DX: Z20.828 Contact with and (suspected) exposure to other viral communicable diseases (principal); Z11.59 Encounter for screening for other viral diseases
CPT/HCPCS: 87502; U0003

== ENCOUNTER → 2020-09-16 | Outpatient (REF) | payer MEDICARE | LOC: SKLAB8 08:00 | PROVIDERS: ATTEND Internal Medicine | DX: Z20.828 Contact with and (suspected) exposure to other viral communicable diseases (principal) ==

== ENCOUNTER → 2020-09-23 | Outpatient (REF) | payer MEDICARE, MEDICAID ==
[~2020-09-23] MED LIST changes: +QUET1TAB7 PO; -QUET25TA3 PO
== END ==
LOC: SKLAB8 11:00
DX: Z20.828 Contact with and (suspected) exposure to other viral communicable diseases (principal)

== ENCOUNTER → 2020-09-30 | Outpatient (REF) | payer MEDICARE | LOC: SKLAB8 12:19 | DX: Z20.828 Contact with and (suspected) exposure to other viral communicable diseases (principal) ==

== ENCOUNTER → 2020-09-30 | Outpatient (REF) | payer MEDICARE ==
[2020-09-30 11:32] LABS: HEMATOCRIT 41.4 % (36.0-47.0); HEMOGLOBIN 12.6 g/dl (12.0-15.5); MEAN CORPUSCULAR HEMOGLOBIN 26.8 pg (27.0-33.0); MEAN CORPUSCULAR HGB CONC 30.4 g/dl (32.0-36.5); MEAN CORPUSCULAR VOLUME 88.1 fl (80.0-96.0); PLATELET COUNT, AUTOMATED 206 10^3/uL (150-450); WHITE BLOOD COUNT 3.9 10^3/uL (4.0-10.0)
--- NOTE | 2020-09-30 11:38 | REP ---
INDICATION: WHEEZING. COMPARISON: Portable chest studies dated 09/21/2018, 06/11/2019 and 01/28/2020. TECHNIQUE: There is a single AP view of the chest performed portably with the patient semi upright. FINDINGS: There is mild chronic interstitial coarsening which could represent chronic lung disease or chronic pulmonary vascular engorgement. This interstitial coarsening had increased on 01/28/2020. However, there is increased interstitial coarsening has resolved today and the appearance is similar to other prior studies. There are no focal infiltrates. There are no pleural effusions. Cardiac size is normal. The phillip, mediastinum, and skeletal structures are unchanged. IMPRESSION: Chronic mild interstitial coarsening as discussed. The increase in this interstitial coarsening on 01/28/2020 has resolved. No acute cardiopulmonary findings. <Electronically signed by Asad Molina > 09/30/20 [id number]
[2020-09-30 11:58] LABS: BLOOD UREA NITROGEN 26 MG/DL (7-18); CALCIUM LEVEL 9.4 MG/DL (8.8-10.2); CARBON DIOXIDE LEVEL 34 MEQ/L (21-32); CHLORIDE LEVEL 105 MEQ/L (98-107); CREATININE FOR GFR 0.73 MG/DL (0.55-1.30); GLOMERULAR FILTRATION RATE > 60.0 (>32); GLUCOSE, FASTING 69 MG/DL (70-100); POTASSIUM SERUM 4.1 MEQ/L (3.5-5.1); SODIUM LEVEL 138 MEQ/L (136-145)
[2020-10-01 14:22] LABS: ALBUMIN 3.5 GM/DL (3.2-5.2); ALT/SGPT 35 U/L (12-78); BILIRUBIN,TOTAL 0.4 MG/DL (0.2-1.0); TOTAL PROTEIN 7.3 GM/DL (6.4-8.2)
== END ==
LOC: SKLAB8 11:30
DX: J84.89 Other specified interstitial pulmonary diseases (principal)

== ENCOUNTER → 2020-10-01 | Outpatient (REF) | payer MEDICARE ==
[~2020-10-01] MED LIST changes: -QUET1TAB7 PO; +QUET25TA3 PO
== END ==
LOC: SKLAB8 07:00
DX: Z53.9 Procedure and treatment not carried out, unspecified reason (principal)

== ENCOUNTER → 2020-10-07 | Outpatient (REF) | payer MEDICARE ==
[~2020-10-07] MED LIST changes: +QUET1TAB7 PO; -QUET25TA3 PO
== END ==
LOC: SKLAB8 10:00
DX: Z20.828 Contact with and (suspected) exposure to other viral communicable diseases (principal)

== ENCOUNTER → 2020-10-14 | Outpatient (REF) | payer MEDICARE | LOC: SKLAB8 10:00 | DX: Z20.828 Contact with and (suspected) exposure to other viral communicable diseases (principal) ==

== ENCOUNTER → 2020-10-21 | Outpatient (REF) | payer MEDICARE | LOC: SKLAB8 10:00 | PROVIDERS: ATTEND Internal Medicine | DX: Z11.52 Encounter for screening for COVID-19 (principal) ==

== ENCOUNTER → 2020-10-28 | Outpatient (REF) | payer MEDICARE | LOC: SKLAB8 10:00 | PROVIDERS: ATTEND Internal Medicine | DX: Z11.52 Encounter for screening for COVID-19 (principal) ==

== ENCOUNTER → 2020-11-04 | Outpatient (REF) | payer MEDICARE ==
[~2020-11-04] MED LIST changes: -QUET1TAB7 PO; +QUET25TA3 PO
== END ==
LOC: SKLAB8 09:00
PROVIDERS: ATTEND Internal Medicine
DX: Z20.822 Contact with and (suspected) exposure to COVID-19 (principal)

== ENCOUNTER → 2020-11-11 | Outpatient (REF) | payer MEDICARE ==
[~2020-11-11] MED LIST changes: +QUET1TAB7 PO; -QUET25TA3 PO
== END ==
LOC: SKLAB8 10:00
PROVIDERS: ATTEND Internal Medicine
DX: Z20.822 Contact with and (suspected) exposure to COVID-19 (principal)

== ENCOUNTER → 2020-11-18 | Outpatient (REF) | payer MEDICARE | LOC: SKLAB8 10:30 | PROVIDERS: ATTEND Internal Medicine | DX: Z11.52 Encounter for screening for COVID-19 (principal) ==

== ENCOUNTER → 2020-11-25 | Outpatient (REF) | payer MEDICARE ==
[~2020-11-25] MED LIST changes: -QUET1TAB7 PO; +QUET25TA3 PO
== END ==
LOC: SKLAB8 09:00
PROVIDERS: ATTEND Internal Medicine
DX: Z20.822 Contact with and (suspected) exposure to COVID-19 (principal)

== ENCOUNTER → 2020-12-09 | Outpatient (REF) | payer MEDICARE | LOC: SKLAB8 10:00 | PROVIDERS: ATTEND Internal Medicine | DX: Z20.822 Contact with and (suspected) exposure to COVID-19 (principal) ==

== ENCOUNTER → 2020-12-22 | Outpatient (REF) | payer MEDICARE | LOC: SKLAB8 08:00 | DX: F03.91 Unspecified dementia, unspecified severity, with behavioral disturbance (principal); Z79.899 Other long term (current) drug therapy ==

== ENCOUNTER → 2021-01-15 | Outpatient (REF) | payer MEDICARE | LOC: SKLAB8 07:00 | PROVIDERS: ATTEND Internal Medicine | DX: Z53.8 Procedure and treatment not carried out for other reasons (principal) ==

== ENCOUNTER → 2021-02-11 | Outpatient (REF) | payer MEDICARE ==
[2021-02-11 20:10] LABS: BASO % 0.7 % (0.0-1.0); EOS # 0.2 10^3/uL (0.0-0.5); EOS % 4.1 % (0.0-3.0); HEMATOCRIT 38.3 % (36.0-47.0); HEMOGLOBIN 12.1 g/dl (12.0-15.5); LYMPH # 1.3 10^3/uL (1.5-5.0); LYMPH % 31.6 % (24.0-44.0); MEAN CORPUSCULAR HEMOGLOBIN 27.7 pg (27.0-33.0); MEAN CORPUSCULAR HGB CONC 31.6 g/dl (32.0-36.5); MEAN CORPUSCULAR VOLUME 87.6 fl (80.0-96.0); MONO # 0.4 10^3/uL (0.0-0.8); MONO % 8.6 % (2.0-8.0); NEUTROPHILS # 2.3 10^3/uL (1.5-8.5); PLATELET COUNT, AUTOMATED 187 10^3/uL (150-450); RED BLOOD COUNT 4.37 10^6/uL (4.00-5.40); WHITE BLOOD COUNT 4.2 10^3/uL (4.0-10.0)
== END ==
LOC: SKLAB8 19:55
DX: D72.819 Decreased white blood cell count, unspecified (principal)

== ENCOUNTER → 2021-04-01 | Outpatient (REF) | payer MEDICARE, MEDICAID ==
[2021-04-01 13:47] LABS: HEMATOCRIT 44.2 % (36.0-47.0); HEMOGLOBIN 13.6 g/dl (12.0-15.5); MEAN CORPUSCULAR HEMOGLOBIN 27.7 pg (27.0-33.0); MEAN CORPUSCULAR HGB CONC 30.8 g/dl (32.0-36.5); PLATELET COUNT, AUTOMATED 225 10^3/uL (150-450); RED BLOOD COUNT 4.91 10^6/uL (4.00-5.40); WHITE BLOOD COUNT 5.1 10^3/uL (4.0-10.0)
[2021-04-01 14:19] LABS: ALBUMIN 3.7 GM/DL (3.2-5.2); ALT/SGPT 35 U/L (12-78); BILIRUBIN,TOTAL 0.4 MG/DL (0.2-1.0); BLOOD UREA NITROGEN 23 MG/DL (7-18); CALCIUM LEVEL 8.7 MG/DL (8.8-10.2); CARBON DIOXIDE LEVEL 29 MEQ/L (21-32); CHLORIDE LEVEL 108 MEQ/L (98-107); CREATININE FOR GFR 0.77 MG/DL (0.55-1.30); GLOMERULAR FILTRATION RATE > 60.0 (>32); GLUCOSE, FASTING 123 MG/DL (70-100); POTASSIUM SERUM 3.9 MEQ/L (3.5-5.1); SODIUM LEVEL 141 MEQ/L (136-145); TOTAL PROTEIN 7.5 GM/DL (6.4-8.2)
== END ==
LOC: SKLAB8 07:00
DX: I10 Essential (primary) hypertension (principal)

== ENCOUNTER → 2021-06-15 | Outpatient (REF) | payer MEDICARE, MEDICAID ==
[~2021-06-15] MED LIST changes: +QUET1TAB17 PO; -QUET25TA3 PO
[2021-06-15 09:07] LABS: BLOOD UREA NITROGEN 20 MG/DL (7-18); CALCIUM LEVEL 8.9 MG/DL (8.8-10.2); CARBON DIOXIDE LEVEL 28 MEQ/L (21-32); CHLORIDE LEVEL 109 MEQ/L (98-107); CREATININE FOR GFR 0.66 MG/DL (0.55-1.30); GLOMERULAR FILTRATION RATE > 60.0 (>32); GLUCOSE, FASTING 76 MG/DL (70-100); POTASSIUM SERUM 3.9 MEQ/L (3.5-5.1); SODIUM LEVEL 139 MEQ/L (136-145)
== END ==
LOC: SKLAB8 07:00
PROVIDERS: ATTEND Neuromusculoskeletal Medicine & OMM
DX: Z79.899 Other long term (current) drug therapy (principal)

== ENCOUNTER → 2021-08-09 | Outpatient (REF) | payer MEDICARE, MEDICAID ==
[~2021-08-09] MED LIST changes: -KLOR10TA76 PO; +POTA-136 PO
== END ==
LOC: SKLAB8 07:43
PROVIDERS: ATTEND Neuromusculoskeletal Medicine & OMM
DX: Z20.822 Contact with and (suspected) exposure to COVID-19 (principal)

== ENCOUNTER → 2021-08-12 | Outpatient (REF) | payer MEDICARE, MEDICAID | LOC: SKLAB8 05:58 | PROVIDERS: ATTEND Neuromusculoskeletal Medicine & OMM | DX: Z20.822 Contact with and (suspected) exposure to COVID-19 (principal) ==

== ENCOUNTER → 2021-08-16 | Outpatient (REF) | payer MEDICARE, MEDICAID | LOC: SKLAB8 06:35 | PROVIDERS: ATTEND Neuromusculoskeletal Medicine & OMM | DX: Z20.822 Contact with and (suspected) exposure to COVID-19 (principal) ==

== ENCOUNTER → 2021-08-19 | Outpatient (REF) | payer MEDICARE, MEDICAID | LOC: SKLAB8 06:47 | PROVIDERS: ATTEND Neuromusculoskeletal Medicine & OMM | DX: Z20.822 Contact with and (suspected) exposure to COVID-19 (principal) ==

== ENCOUNTER → 2021-08-25 | Outpatient (REF) | payer MEDICARE, MEDICAID | LOC: SKLAB8 06:38 | PROVIDERS: ATTEND Neuromusculoskeletal Medicine & OMM | DX: Z20.822 Contact with and (suspected) exposure to COVID-19 (principal) ==

== ENCOUNTER → 2021-09-01 | Outpatient (REF) | payer MEDICARE, MEDICAID | LOC: SKLAB8 08:37 | PROVIDERS: ATTEND Neuromusculoskeletal Medicine & OMM | DX: Z20.822 Contact with and (suspected) exposure to COVID-19 (principal) ==

== ENCOUNTER → 2021-09-22 | Outpatient (REF) | payer MEDICARE, MEDICAID | LOC: SKLAB8 08:40 | PROVIDERS: ATTEND Internal Medicine | DX: Z20.822 Contact with and (suspected) exposure to COVID-19 (principal) ==

== ENCOUNTER → 2021-09-29 | Outpatient (REF) | payer MEDICARE, MEDICAID | LOC: SKLAB8 14:30 | PROVIDERS: ATTEND Neuromusculoskeletal Medicine & OMM | DX: Z20.822 Contact with and (suspected) exposure to COVID-19 (principal) ==

== ENCOUNTER → 2021-09-30 | Outpatient (REF) | payer MEDICARE, MEDICAID ==
[~2021-09-30] MED LIST changes: -CITA40TA4 PO; +CITA40TA7 PO; +LOSA100T45 PO; -LOSA100T50 PO
[2021-09-30 11:45] LABS: HEMATOCRIT 36.9 % (36.0-47.0); HEMOGLOBIN 11.8 g/dl (12.0-15.5); MEAN CORPUSCULAR HEMOGLOBIN 27.8 pg (27.0-33.0); PLATELET COUNT, AUTOMATED 200 10^3/uL (150-450); RED BLOOD COUNT 4.24 10^6/uL (4.00-5.40); WHITE BLOOD COUNT 4.1 10^3/uL (4.0-10.0)
[2021-09-30 12:16] LABS: ALT/SGPT 35 U/L (12-78); BLOOD UREA NITROGEN 23 MG/DL (7-18); CALCIUM LEVEL 8.8 MG/DL (8.8-10.2); CARBON DIOXIDE LEVEL 28 MEQ/L (21-32); CHLORIDE LEVEL 106 MEQ/L (98-107); CREATININE FOR GFR 0.56 MG/DL (0.55-1.30); GLOMERULAR FILTRATION RATE > 60.0 (>32); GLUCOSE, FASTING 77 MG/DL (70-100); POTASSIUM SERUM 3.7 MEQ/L (3.5-5.1); SODIUM LEVEL 139 MEQ/L (136-145); TOTAL PROTEIN 6.7 GM/DL (6.4-8.2)
== END ==
LOC: SKLAB8 07:00
PROVIDERS: ATTEND Neuromusculoskeletal Medicine & OMM
DX: I10 Essential (primary) hypertension (principal)

== ENCOUNTER → 2021-10-06 | Outpatient (REF) | payer MEDICARE, MEDICAID ==
[~2021-10-06] MED LIST changes: +CITA40TA4 PO; -CITA40TA7 PO; -LOSA100T45 PO; +LOSA100T50 PO
== END ==
LOC: SKLAB8 14:50
PROVIDERS: ATTEND Neuromusculoskeletal Medicine & OMM
DX: Z20.822 Contact with and (suspected) exposure to COVID-19 (principal)

== ENCOUNTER → 2021-10-13 | Outpatient (REF) | payer MEDICARE, MEDICAID | LOC: SKLAB8 14:15 | PROVIDERS: ATTEND Internal Medicine | DX: Z20.822 Contact with and (suspected) exposure to COVID-19 (principal) ==

== ENCOUNTER → 2021-10-20 | Outpatient (REF) | payer MEDICARE, MEDICAID ==
[~2021-10-20] MED LIST changes: -CITA40TA4 PO; +CITA40TA7 PO; +LOSA100T45 PO; -LOSA100T50 PO
== END ==
LOC: SKLAB8 07:00
PROVIDERS: ATTEND Neuromusculoskeletal Medicine & OMM
DX: Z20.822 Contact with and (suspected) exposure to COVID-19 (principal)

== ENCOUNTER → 2021-10-24 | Outpatient (REF) ==
[2021-10-24 10:45] LABS: HEMOGLOBIN 11.7 g/dl (12.0-15.5); MEAN CORPUSCULAR HEMOGLOBIN 28.2 pg (27.0-33.0); MEAN CORPUSCULAR HGB CONC 31.6 g/dl (32.0-36.5); MEAN CORPUSCULAR VOLUME 89.2 fl (80.0-96.0); PLATELET COUNT, AUTOMATED 194 10^3/uL (150-450); RED BLOOD COUNT 4.15 10^6/uL (4.00-5.40); WHITE BLOOD COUNT 4.8 10^3/uL (4.0-10.0)
[2021-10-24 11:16] LABS: ALBUMIN 3.5 GM/DL (3.2-5.2); ALT/SGPT 31 U/L (12-78); BILIRUBIN,TOTAL 0.2 MG/DL (0.2-1.0); BLOOD UREA NITROGEN 22 MG/DL (7-18); CALCIUM LEVEL 8.8 MG/DL (8.8-10.2); CARBON DIOXIDE LEVEL 27 MEQ/L (21-32); CHLORIDE LEVEL 106 MEQ/L (98-107); GLOMERULAR FILTRATION RATE > 60.0 (>32); GLUCOSE, FASTING 107 MG/DL (70-100); POTASSIUM SERUM 4.1 MEQ/L (3.5-5.1); SODIUM LEVEL 140 MEQ/L (136-145)
== END ==
LOC: SKLAB8 09:36
PROVIDERS: ATTEND Nurse Practitioner Acute Care
DX: U07.1 COVID-19 (principal)

== ENCOUNTER → 2021-10-25 | Outpatient (REF) | payer MEDICARE, MEDICAID ==
[2021-10-25 15:50] LABS: HEMATOCRIT 38.6 % (36.0-47.0); HEMOGLOBIN 12.2 g/dl (12.0-15.5); MEAN CORPUSCULAR HEMOGLOBIN 27.9 pg (27.0-33.0); MEAN CORPUSCULAR HGB CONC 31.6 g/dl (32.0-36.5); MEAN CORPUSCULAR VOLUME 88.1 fl (80.0-96.0); PLATELET COUNT, AUTOMATED 197 10^3/uL (150-450); RED BLOOD COUNT 4.38 10^6/uL (4.00-5.40); WHITE BLOOD COUNT 3.7 10^3/uL (4.0-10.0)
[2021-10-25 16:25] LABS: ALBUMIN 3.3 GM/DL (3.2-5.2); ALT/SGPT 29 U/L (12-78); BILIRUBIN,TOTAL 0.5 MG/DL (0.2-1.0); BLOOD UREA NITROGEN 17 MG/DL (7-18); CALCIUM LEVEL 8.5 MG/DL (8.8-10.2); CARBON DIOXIDE LEVEL 28 MEQ/L (21-32); CHLORIDE LEVEL 104 MEQ/L (98-107); CREATININE FOR GFR 0.62 MG/DL (0.55-1.30); GLOMERULAR FILTRATION RATE > 60.0 (>32); GLUCOSE, FASTING 85 MG/DL (70-100); POTASSIUM SERUM 3.9 MEQ/L (3.5-5.1); SODIUM LEVEL 138 MEQ/L (136-145); TOTAL PROTEIN 6.7 GM/DL (6.4-8.2)
== END ==
LOC: SKLAB8 13:15
PROVIDERS: ATTEND Neuromusculoskeletal Medicine & OMM
DX: U07.1 COVID-19 (principal); Z79.899 Other long term (current) drug therapy

== ENCOUNTER → 2021-10-28 | Outpatient (REF) | payer MEDICARE, MEDICAID ==
[2021-10-28 11:20] LABS: HEMATOCRIT 41.1 % (36.0-47.0); HEMOGLOBIN 12.8 g/dl (12.0-15.5); MEAN CORPUSCULAR HEMOGLOBIN 27.4 pg (27.0-33.0); MEAN CORPUSCULAR HGB CONC 31.1 g/dl (32.0-36.5); PLATELET COUNT, AUTOMATED 227 10^3/uL (150-450); RED BLOOD COUNT 4.67 10^6/uL (4.00-5.40); WHITE BLOOD COUNT 3.5 10^3/uL (4.0-10.0)
[2021-10-28 11:38] LABS: ALBUMIN 3.8 GM/DL (3.2-5.2); ALT/SGPT 31 U/L (12-78); BILIRUBIN,TOTAL 0.5 MG/DL (0.2-1.0); BLOOD UREA NITROGEN 22 MG/DL (7-18); CALCIUM LEVEL 9.2 MG/DL (8.8-10.2); CARBON DIOXIDE LEVEL 28 MEQ/L (21-32); CHLORIDE LEVEL 104 MEQ/L (98-107); GLOMERULAR FILTRATION RATE > 60.0 (>32); GLUCOSE, FASTING 118 MG/DL (70-100); POTASSIUM SERUM 3.9 MEQ/L (3.5-5.1); SODIUM LEVEL 139 MEQ/L (136-145); TOTAL PROTEIN 7.4 GM/DL (6.4-8.2)
== END ==
LOC: SKLAB8 07:00
PROVIDERS: ATTEND Neuromusculoskeletal Medicine & OMM
DX: U07.1 COVID-19 (principal); Z79.899 Other long term (current) drug therapy

== ENCOUNTER → 2021-11-22 | Outpatient (REF) | payer MEDICARE, MEDICAID ==
[2021-11-22 08:46] LABS: BASO % 0.4 % (0.0-1.0); EOS # 0.2 10^3/uL (0.0-0.5); EOS % 3.1 % (0.0-3.0); HEMATOCRIT 39.1 % (36.0-47.0); HEMOGLOBIN 12.5 g/dl (12.0-15.5); LYMPH # 1.1 10^3/uL (1.5-5.0); LYMPH % 15.7 % (24.0-44.0); MEAN CORPUSCULAR VOLUME 87.7 fl (80.0-96.0); MONO # 0.5 10^3/uL (0.0-0.8); MONO % 6.6 % (2.0-8.0); NEUTROPHILS # 5.3 10^3/uL (1.5-8.5); NEUTROPHILS % 74.1 % (36.0-66.0); PLATELET COUNT, AUTOMATED 186 10^3/uL (150-450); RED BLOOD COUNT 4.46 10^6/uL (4.00-5.40); WHITE BLOOD COUNT 7.1 10^3/uL (4.0-10.0)
[2021-11-22 09:24] LABS: BLOOD UREA NITROGEN 24 MG/DL (7-18); CALCIUM LEVEL 8.6 MG/DL (8.8-10.2); CARBON DIOXIDE LEVEL 26 MEQ/L (21-32); CHLORIDE LEVEL 109 MEQ/L (98-107); CREATININE FOR GFR 0.69 MG/DL (0.55-1.30); GLOMERULAR FILTRATION RATE > 60.0 (>32); GLUCOSE, FASTING 101 MG/DL (70-100); POTASSIUM SERUM 4.4 MEQ/L (3.5-5.1); SODIUM LEVEL 141 MEQ/L (136-145)
== END ==
LOC: SKLAB8 07:15
PROVIDERS: ATTEND Neuromusculoskeletal Medicine & OMM
DX: R50.9 Fever, unspecified (principal); R05.8 Other specified cough

== ENCOUNTER → 2022-03-02 | Outpatient (REF) | payer MEDICARE, MEDICAID | LOC: SKLAB8 11:35 | PROVIDERS: ATTEND Neuromusculoskeletal Medicine & OMM | DX: M79.89 Other specified soft tissue disorders (principal) ==

== ENCOUNTER → 2022-03-09 | Outpatient (REF) | payer MEDICARE, MEDICAID | LOC: SKLAB8 10:43 | PROVIDERS: ATTEND Neuromusculoskeletal Medicine & OMM | DX: M85.871 Other specified disorders of bone density and structure, right ankle and foot (principal); M79.89 Other specified soft tissue disorders ==

== ENCOUNTER → 2022-04-12 | Outpatient (CLI) | payer MEDICARE, MEDICAID | LOC: M SOG 08:06 | PROVIDERS: ATTEND Orthopaedic Surgery Hand Surgery | DX: S52.532A Colles' fracture of left radius, initial encounter for closed fracture (principal); X58.XXXA Exposure to other specified factors, initial encounter; Y92.9 Unspecified place or not applicable; Y93.9 Activity, unspecified; S62.012K Displaced fracture of distal pole of navicular [scaphoid] bone of left wrist, subsequent encounter for fracture with nonunion ==

== ENCOUNTER → 2022-05-02 | Outpatient (CLI) | payer MEDICARE, MEDICAID | LOC: M SOG 11:13 | PROVIDERS: ATTEND Orthopaedic Surgery Hand Surgery | DX: S52.532D Colles' fracture of left radius, subsequent encounter for closed fracture with routine healing (principal) ==

== ENCOUNTER 2022-05-27 20:01 | Emergency (ER) | payer MEDICARE, MEDICAID ==
[~2022-05-27] VITALS: Ht 160 cm; Wt 79.5 kg
[2022-05-27] MEDS ORDERED: traMADol 50 MG TAB PO ONE (23:40)
[2022-05-28] MEDS ORDERED: BUPIVACAINE HCL 0.25% 10ML VIAL SC ONE (01:00)
[2022-05-28] MEDS ORDERED: LIDOCAINE 1% MDV 20ML VIAL SC ONE (01:00)
[2022-05-28 02:43] VITALS: BP 153/72
[2022-06-07] MEDS ORDERED: SERT25TA21 PO (12:58)
[2022-06-07] MEDS ORDERED: FURO40TA2 PO (12:58)
[2022-06-07] MEDS ORDERED: ACET32TAB PO (12:58)
[2022-06-07] MEDS ORDERED: METO1TAB87 PO (12:58)
[2022-06-07] MEDS ORDERED: ASPI81CH33 PO (12:58)
== END 2022-05-28 02:48 | disposition home or self-care (01) ==
LOC: M ED 20:01
DX: S52.502A Unspecified fracture of the lower end of left radius, initial encounter for closed fracture (principal); S52.602A Unspecified fracture of lower end of left ulna, initial encounter for closed fracture; W18.30XA Fall on same level, unspecified, initial encounter; Y92.129 Unspecified place in nursing home as the place of occurrence of the external cause; M85.80 Other specified disorders of bone density and structure, unspecified site; I10 Essential (primary) hypertension; E78.5 Hyperlipidemia, unspecified; E03.9 Hypothyroidism, unspecified; F03.90 Unspecified dementia, unspecified severity, without behavioral disturbance, psychotic disturbance, mood disturbance, and anxiety; F41.9 Anxiety disorder, unspecified; F32.9 Major depressive disorder, single episode, unspecified; Z88.8 Allergy status to other drugs, medicaments and biological substances

== ENCOUNTER → 2022-05-27 | Outpatient (CLI) | payer MEDICARE, MEDICAID | LOC: M RAD 17:53 | PROVIDERS: ATTEND Neuromusculoskeletal Medicine & OMM | DX: M25.532 Pain in left wrist (principal); S52.692A Other fracture of lower end of left ulna, initial encounter for closed fracture; W19.XXXA Unspecified fall, initial encounter; Y93.9 Activity, unspecified; Y99.9 Unspecified external cause status; Y92.9 Unspecified place or not applicable; S62.102A Fracture of unspecified carpal bone, left wrist, initial encounter for closed fracture; M79.89 Other specified soft tissue disorders ==

== ENCOUNTER → 2022-05-27 | Outpatient (REF) | payer MEDICARE, MEDICAID | LOC: SKLAB8 14:17 | PROVIDERS: ATTEND Neuromusculoskeletal Medicine & OMM | DX: I51.7 Cardiomegaly (principal) ==

== ENCOUNTER → 2022-06-05 | Outpatient (REF) | payer MEDICARE, MEDICAID ==
[~2022-06-05] MED LIST changes: +ACET32TAB PO; +ASPI81CH33 PO; +FURO40TA2 PO; +METO1TAB87 PO; +SERT25TA21 PO
[2022-06-05 13:20] LABS: BASO % 0.5 % (0.0-1.0); EOS # 0.2 10^3/uL (0.0-0.5); EOS % 2.5 % (0.0-3.0); HEMATOCRIT 40.7 % (36.0-47.0); HEMOGLOBIN 13.1 g/dl (12.0-15.5); LYMPH # 1.6 10^3/uL (1.5-5.0); LYMPH % 20.3 % (24.0-44.0); MEAN CORPUSCULAR HEMOGLOBIN 28.4 pg (27.0-33.0); MEAN CORPUSCULAR HGB CONC 32.2 g/dl (32.0-36.5); MEAN CORPUSCULAR VOLUME 88.1 fl (80.0-96.0); MONO # 0.5 10^3/uL (0.0-0.8); MONO % 6.2 % (2.0-8.0); NEUTROPHILS # 5.3 10^3/uL (1.5-8.5); PLATELET COUNT, AUTOMATED 277 10^3/uL (150-450); RED BLOOD COUNT 4.62 10^6/uL (4.00-5.40); WHITE BLOOD COUNT 7.6 10^3/uL (4.0-10.0)
[2022-06-05 13:49] LABS: ALBUMIN 3.4 GM/DL (3.2-5.2); ALT/SGPT 44 U/L (12-78); BILIRUBIN,TOTAL 0.4 MG/DL (0.2-1.0); BLOOD UREA NITROGEN 29 MG/DL (7-18); CALCIUM LEVEL 8.9 MG/DL (8.8-10.2); CARBON DIOXIDE LEVEL 28 MEQ/L (21-32); CHLORIDE LEVEL 110 MEQ/L (98-107); CREATININE FOR GFR 0.66 MG/DL (0.55-1.30); GLOMERULAR FILTRATION RATE > 60.0 (>32); GLUCOSE, FASTING 104 MG/DL (70-100); SODIUM LEVEL 141 MEQ/L (136-145); TOTAL PROTEIN 7.4 GM/DL (6.4-8.2)
== END ==
LOC: SKLAB8 12:38
PROVIDERS: ATTEND Neuromusculoskeletal Medicine & OMM
DX: J18.9 Pneumonia, unspecified organism (principal)

== ENCOUNTER → 2022-06-05 | Outpatient (REF) | payer MEDICARE, MEDICAID | LOC: SKLAB8 12:30 | PROVIDERS: ATTEND Neuromusculoskeletal Medicine & OMM | DX: J18.9 Pneumonia, unspecified organism (principal) ==

== ENCOUNTER → 2022-06-06 | Outpatient (CLI) | payer MEDICARE, MEDICAID | LOC: M SOG 10:51 | PROVIDERS: ATTEND Orthopaedic Surgery Hand Surgery | DX: S52.532D Colles' fracture of left radius, subsequent encounter for closed fracture with routine healing (principal) ==

== ENCOUNTER 2022-06-08 10:19 | Day surgery (SDC) | payer MEDICARE, MEDICAID ==
[~2022-06-08] VITALS: Ht 157.5 cm; Wt 77.1 kg
[2022-06-08] MEDS ORDERED: LR 1,000 ML IV SCH ×2 (10:55→13:10)
[2022-06-08] MEDS ORDERED: fentaNYL 100 MCG/2 ML INJECTION As Ordered ONE (11:46)
[2022-06-08] MEDS ORDERED: LIDOCAINE 2% 100MG/5ML SDV (FOR ANES.) As Ordered ONE (11:48)
[2022-06-08] MEDS ORDERED: propofoL 200 MG/20 ML VIAL As Ordered ONE (11:48)
[2022-06-08] MEDS ORDERED: fentaNYL 100 MCG/2 ML INJECTION IV PRN (13:10)
[2022-06-08] MEDS ORDERED: PERCOCET 5MG/325MG TAB PO PRN (13:10)
[2022-06-08] MEDS ORDERED: ONDANSETRON 4MG 2ML VIAL IV PRN (13:10)
[2022-06-08] MEDS ORDERED: MORPHINE 2 MG/ML 1ML VIAL IV PRN (13:10)
[2022-06-08 13:21] VITALS: BP 137/83
== END 2022-06-08 13:50 | disposition home or self-care (01) ==
LOC: M SDC 10:19
PROVIDERS: ATTEND Orthopaedic Surgery Hand Surgery
DX: S52.532A Colles' fracture of left radius, initial encounter for closed fracture (principal); W19.XXXA Unspecified fall, initial encounter; I48.91 Unspecified atrial fibrillation; F41.9 Anxiety disorder, unspecified; F32.A Depression, unspecified; F03.90 Unspecified dementia, unspecified severity, without behavioral disturbance, psychotic disturbance, mood disturbance, and anxiety; Z79.899 Other long term (current) drug therapy; Z79.82 Long term (current) use of aspirin; E78.5 Hyperlipidemia, unspecified; Z88.8 Allergy status to other drugs, medicaments and biological substances
CPT/HCPCS: 25565; J3010

== ENCOUNTER → 2022-06-14 | Outpatient (CLI) | payer MEDICARE, MEDICAID | LOC: M SOG 09:40 | PROVIDERS: ATTEND Orthopaedic Surgery Hand Surgery | DX: S52.532D Colles' fracture of left radius, subsequent encounter for closed fracture with routine healing (principal) ==

== ENCOUNTER → 2022-07-26 | Outpatient (CLI) | payer MEDICARE, MEDICAID | LOC: M SOG 13:04 | PROVIDERS: ATTEND Orthopaedic Surgery Hand Surgery | DX: Z47.89 Encounter for other orthopedic aftercare (principal); Z87.81 Personal history of (healed) traumatic fracture; S62.002K Unspecified fracture of navicular [scaphoid] bone of left wrist, subsequent encounter for fracture with nonunion ==

== ENCOUNTER → 2022-08-05 | Outpatient (REF) | payer MEDICARE, MEDICAID | LOC: SKLAB8 07:00 | PROVIDERS: ATTEND Nurse Practitioner Family | DX: M85.88 Other specified disorders of bone density and structure, other site (principal); S62.002K Unspecified fracture of navicular [scaphoid] bone of left wrist, subsequent encounter for fracture with nonunion; Z87.81 Personal history of (healed) traumatic fracture ==

== ENCOUNTER → 2022-08-05 | Outpatient (CLI) | payer MEDICARE, MEDICAID | LOC: M RAD 11:05 | PROVIDERS: ATTEND Neuromusculoskeletal Medicine & OMM | DX: Z53.9 Procedure and treatment not carried out, unspecified reason (principal) ==

== ENCOUNTER → 2022-08-11 | Outpatient (REF) | payer MEDICARE, MEDICAID | LOC: SKLAB8 14:39 | PROVIDERS: ATTEND Internal Medicine | DX: Z53.8 Procedure and treatment not carried out for other reasons (principal) ==

== ENCOUNTER → 2022-11-07 | Outpatient (REF) | payer MEDICARE, MEDICAID ==
[2022-11-07 09:22] LABS: HEMATOCRIT 43.1 % (36.0-47.0); HEMOGLOBIN 13.4 g/dl (12.0-15.5); MEAN CORPUSCULAR HEMOGLOBIN 27.9 pg (27.0-33.0); MEAN CORPUSCULAR HGB CONC 31.1 g/dl (32.0-36.5); MEAN CORPUSCULAR VOLUME 89.6 fl (80.0-96.0); PLATELET COUNT, AUTOMATED 183 10^3/uL (150-450); RED BLOOD COUNT 4.81 10^6/uL (4.00-5.40); WHITE BLOOD COUNT 4.1 10^3/uL (4.0-10.0)
[2022-11-07 09:54] LABS: ALBUMIN 3.7 G/DL (3.2-5.2); ALKALINE PHOSPHATASE 72 U/L (46-116); ALT/SGPT 33 U/L (7.0-40); AST/SGOT 39 U/L (<34); BILIRUBIN,TOTAL 0.6 MG/DL (0.3-1.2); BLOOD UREA NITROGEN 21 MG/DL (9-23); CALCIUM LEVEL 9.1 MG/DL (8.3-10.6); CARBON DIOXIDE LEVEL 24 MMOL/L (20-31); CHLORIDE LEVEL 107 MMOL/L (98-107); CREATININE FOR GFR 0.68 MG/DL (0.55-1.30); GLOMERULAR FILTRATION RATE > 60.0 (>32); GLUCOSE, FASTING 112 MG/DL (74-106); SODIUM LEVEL 142 MMOL/L (136-145); TOTAL PROTEIN 6.9 G/DL (5.7-8.2)
== END ==
LOC: SKLAB8 07:25
PROVIDERS: ATTEND Internal Medicine
DX: I10 Essential (primary) hypertension (principal)

== ENCOUNTER → 2023-03-27 | Outpatient (REF) | payer MEDICARE, MEDICAID ==
[~2023-03-27] MED LIST changes: -LOSA100T45 PO; +LOSA100T46 PO
== END ==
LOC: SKLAB8 15:45
PROVIDERS: ATTEND Nurse Practitioner
DX: M25.511 Pain in right shoulder (principal); W19.XXXA Unspecified fall, initial encounter; Y92.128 Other place in nursing home as the place of occurrence of the external cause

== ENCOUNTER → 2023-03-30 | Outpatient (REF) | payer MEDICARE, MEDICAID ==
[2023-03-30 10:31] LABS: HEMOGLOBIN 13.1 g/dl (12.0-15.5); MEAN CORPUSCULAR HEMOGLOBIN 27.5 pg (27.0-33.0); MEAN CORPUSCULAR HGB CONC 31.2 g/dl (32.0-36.5); MEAN CORPUSCULAR VOLUME 88.2 fl (80.0-96.0); PLATELET COUNT, AUTOMATED 319 10^3/uL (150-450); RED BLOOD COUNT 4.76 10^6/uL (4.00-5.40); WHITE BLOOD COUNT 4.9 10^3/uL (4.0-10.0)
[2023-03-30 10:58] LABS: ALBUMIN 3.8 G/DL (3.2-5.2); ALKALINE PHOSPHATASE 82 U/L (46-116); ALT/SGPT 16 U/L (7.0-40); AST/SGOT < 8 U/L (<34); BILIRUBIN,TOTAL 0.5 MG/DL (0.3-1.2); BLOOD UREA NITROGEN 18 MG/DL (9-23); CALCIUM LEVEL 8.5 MG/DL (8.3-10.6); CARBON DIOXIDE LEVEL 29 MMOL/L (20-31); CHLORIDE LEVEL 106 MMOL/L (98-107); CREATININE FOR GFR 0.66 MG/DL (0.55-1.30); GLOMERULAR FILTRATION RATE > 60.0 (>32); GLUCOSE, FASTING 103 MG/DL (74-106); POTASSIUM SERUM 3.9 MMOL/L (3.5-5.1); SODIUM LEVEL 140 MMOL/L (136-145); TOTAL PROTEIN 6.9 G/DL (5.7-8.2)
== END ==
LOC: SKLAB8 07:00
PROVIDERS: ATTEND Internal Medicine
DX: I10 Essential (primary) hypertension (principal)